=== PATIENT | male | born 2005 | race Caucasian/White ===

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

== ENCOUNTER 2023-12-13 22:01 | Emergency (ER) | payer OTHER, SELFPAY ==
[2023-12-13 22:02] VITALS: BP 145/77; PULSE 68; RESP 16; TEMP 37; O2SAT 99; BMI 19.5
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
[2023-12-13 22:44] VITALS: BP 132/77; PULSE 69; RESP 16; TEMP 36.6; O2SAT 100
== END 2023-12-13 23:07 | disposition home or self-care (01) ==
LOC: ED 22:54
PROVIDERS: Emergency Provider Emergency Medicine; Visit Provider Emergency Medicine
DX: Z04.1 Encounter for examination and observation following transport accident (principal); I10 Essential (primary) hypertension; Z79.899 Other long term (current) drug therapy
CPT/HCPCS: 99282

== ENCOUNTER 2025-01-06 19:36 | Emergency (ER) | payer OTHER, SELFPAY ==
[2025-01-06 19:37] VITALS: BP 150/88; PULSE 98; RESP 16; TEMP 36.6; O2SAT 99; BMI 18.6
--- OUTSIDE RECORDS SUMMARY | 2025-01-06 21:24 | XMS RPT_ITS | CCD ---
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 Tympanic membrane, ear canal and external ear normal. Left Ear: Ear canal and external ear normal. There is impacted cerumen. Ears: Comments: Left ear: Cerumen impairs exam of clinically significant portions of the tympanic membrane or middle ear condition. Nose: Nose normal. Mouth/Throat: Pharynx: Uvula midline. No oropharyngeal exudate or posterior oropharyngeal erythema. Cardiovascular: Rate and Rhythm: Normal rate and regular rhythm. Heart sounds: Normal heart sounds. Pulmonary: Effort: Pulmonary effort is normal. No respiratory distress. Breath sounds: Normal breath sounds. No wheezing or rales. Musculoskeletal: Cervical back: Neck supple. Lymphadenopathy: Cervical: No cervical adenopathy. Skin: General: Skin is warm and dry. Findings: No erythema or rash. Neurological: Mental Status: He is alert. ASSESSMENT/PLAN: 1. Impacted cerumen of left ear - ICD9: 380.4, ICD10: H61.22 (primary diagnosis) - REMOVAL OF IMPACTED CERUMEN - INSTRUMENTATION - Cerumen removed via irrigation, patient tolerated procedure well. Post procedure left ear canal is clear and TM is well visualized with bony landmarks intact and erythema and bulging TM. 2. Sore throat - ICD9: 462, ICD10: J02.9 - suspect viral - Group A strep molecular testing negative - Discussed supportive care treatment with fluids, rest and analgesia. 3. Other acute nonsuppurative otitis media of left ear, recurrence not specified - ICD9: 381.00, ICD10: H65.192 - Will begin treatment with as per antibiotic as written, see orders - Supportive care with plenty of fluids, rest, and analgesia prn. - CEFDINIR 300 MG CAPSULE - Follow-up with your PCP in 3-5 days if symptoms have not improved or sooner if symptoms worsen - Discussed red flags and need for immediate medical evaluation if any occur. - Discussed supportive care treatment with fluids, rest and analgesia. - Discussed expected course of illness JAYCOB Chow Kathy, APRN.CNP 03/14/2023 8:46 AM Adde (more content not included)... Normal [facility] CNOVon 10-02-2022 CNOV Office Visit ([facility] ) YOANNA CUETO ([id number]) 1 M Date Time Provider Department 10/02/22 5:30 PM CINDY VELAZQUEZ [facility] During your visit today, we recorded the following information about you: Temperature Pulse Respiration Blood pressure 98.7 degrees 76/minute 16/minute 130/68 Weight 60.8 kg Cindy Velazquez PA-C 10/02/2022 5:43 PM Signed Rotate ibuprofen 600-800mg every 6-8 hours and tylenol 500-1000mg every 4-6 hours (max 4000mg tylenol a day) Cepacol lozenges. Cindy Velazquez PA-C 10/02/2022 5:57 PM Signed This note was created using [employer]riter. Subjective Yoanna Cueto is a 16 year old male. HPI Patient presents with a chief complaint of sore throat and right ear pain. No fever. No cough or runny nose. Really just hurts on the right side of his throat. No diarrhea or vomiting. He has tried ibuprofen bkot-uey-jkfzfnp. Also tried cough drops. States some people at work have been sick. Review of Systems Constitutional: Negative. HENT: Positive for ear pain and sore throat. Negative for congestion, ear discharge, sinus pressure and sinus pain. Respiratory: Negative for cough. Cardiovascular: Negative. Gastrointestinal: Negative. Genitourinary: Negative. Musculoskeletal: Negative. All other systems reviewed and are negative. PAST MEDICAL HISTORY Diagnosis Date Contact dermatitis and other eczema, due to unspecified cause Current Outpatient Medications Medication Sig Dispense Refill albuterol HFA (PROAIR HFA) 90 mcg/actuation inhaler Inhale 2 Puffs as instructed every 6 hours as needed. 1 Each 0 cefdinir (OMNICEF) 300 mg capsule Take 1 capsule by mouth twice daily for 7 days. 14 capsule 0 Brompheniramine-Pseudoe ph-DM (BROMFED DM) 2-30-10 mg/5 mL syrup Take 10 mL by mouth four times daily as needed. (Patient not taking: Reported on 10/02/2022) 200 mL 0 albuterol HFA (VENTOLIN HFA) 90 mcg/actuation inhaler Inhale 2 Puffs as instructed every 4 hours as needed for Wheezing/Shortness of Breath. (Patient not taking: Reported on 08/11/2017 ) 1 Inhaler 0 cyproheptadine (PERIACTIN) 4 mg tablet (Patient not taking: Reported on 06/03/2021 ) epinephrine(EPIPEN JR 0.15 MG/0.3 ML (1:2,000) IM INJECTOR) use as directed for allergic reaction. Seek emergent medical care immediately after use. (Patient not taking: Reported on 06/03/2021) 1 1 Ped Jaibuhgxriqbz-Na-Qocv (POLY-VITAMIN/FLUORIDE/ IRON) 0.5-10 mg/mL ORAL Drop 1 ml once a day (Patient not taking: No sig reported) 30 ml 11 No current facility-administered medications for this visit. PAST SURGICAL HISTORY Procedure Laterality Date MYRINGOTOMY ASPIRAND/EUSTACHIAN TUBE NFLTJ ANES 03/2004 Myringotomy/tubes TONSILLECTOMY PRIMARY/SECONDARY Tonsillectomy FAMILY HISTORY Problem Relation Age of Onset Diabetes Mother Asthma Brother None Father None Brother Social History Tobacco Use Smoking status: Never Smokeless tobacco: Never Objective BP 130/68 Pulse 76 Temp 37.1 ?C (98.7 ?F) (Tympanic) Resp 16 Wt 60.8 kg (134 lb) SpO2 96% Physical Exam Vitals reviewed. Constitutional: Appearance: Normal appearance. HENT: Head: Normocephalic and atraumatic. Right Ear: Ear canal and external ear normal. Left Ear: Tympanic membrane, ear canal and external ear normal. Ears: Comments: Suppurative right middle ear effusion Nose: Nose normal. Mouth/Throat: Mouth: Mucous membranes are moist. Pharynx: Pharyngeal swelling and posterior oropharyngeal erythema present. No oropharyngeal exudate or uvula swelling. Comments: Tonsils surgically absent Cardiovascular: Rate and Rhythm: Normal rate and regular rhythm. Heart sounds: Normal heart sounds. Pulmonary: Effort: Pulmonary effort is normal. Breath sounds: Normal breath sounds. Musculoskeletal: Cervical back: Neck supple. Lymphadenopathy: Cervical: Cervical adenopathy present. Skin: General: Skin is warm and dry. Neurological: General: No focal deficit present. Mental Status: He is alert. Assessment and Plan ASSESSMENT/PLAN: 1. Sore throat - ICD9: 462, ICD10: J02.9 (primary diagnosis) - Alere Strep Test neg, no culture pending - Discussed supportive care treatment with fluids, rest and analgesia. - The patient may also use warm salt water gargles, throat lozenges and/or OTC throat spray as needed. - The patient should follow up in 3-5 days if symptoms persist or worsen - STREP A MOLECULAR (POC) 2. Acute otitis media, right - ICD9: 382.9, ICD10: H66.91 - Will begin treatment with as per antibiotic as written, see orders- omnicef - Supportive care with plenty of fluids, rest, and analgesia prn. - Follow up in 3-5 days if symptoms persist or worsen. Cindy Velazquez PA-C Allergies As of Date: 10/02/2022 Noted Allergy Reaction APRICOT 09/08/2008 AUGMENTIN (AMOXICILLIN-POT CLAVUL*04/02/2005 4 - Hives HONEY 09/28/2007 11 - Vomiting D (more content not included)... Normal [facility] STREP A MOLECULAR (POC)on Procedural Control Valid [facility] Strep A (POCT) Negative Negative [facility] Progress Noteon 06-27-2022 [employer] Authentication Interface Message Text Yoanna Cueto is here for follow-up for: Fluid In Kidney History of Presenting Problem: Patient is accompanied by and history obtained from parents. Hx of lap pyeloplasty, hypertension, and CKD. No more pain. Stent out. Creatinine down to 0.77 last visit. Renin normalized. OFF BP meds Past Medical History: Past Medical History: Diagnosis Date Hydronephrosis Past Surgical History: Procedure Laterality Date CIRCUMCISION CYSTOSCOPY N/A 11/20/2021 CYSTOSCOPY WITH STENT REMOVAL performed by Rodger Reyes MD at [facility] OR PYELOPLASTY Right 10/10/2021 LAPAROSCOPIC PYELOPLASTY performed by Rodger Reyes MD at [facility] OR TONSILLECTOMY URETER STENT PLACEMENT N/A 07/23/2021 RIGHT URETERAL STENT INSERTION performed by Rodger Reyes MD at [facility] OR Allergies: Allergies Allergen Reactions Apricot Flavor Swelling Augmentin [Amoxicillin-Pot Clavulanate] Hives Honey Nausea And Vomiting Honey Bee Treatment [Bee Venom] Nausea And Vomiting Honey only/not the bee venom Medications: Outpatient Encounter Medications as of 06/27/2022 Medication Sig Dispense Refill acetaminophen (TYLENOL) 325 MG tablet Take by mouth No facility-administered encounter medications on file as of 06/27/2022. Family Medical History: Family History Problem Relation Age of Onset Diabetes Mother High Cholesterol Mother Hypertension Father Allergies Brother seasonal allergies No known problems Brother [place] Before 50 Paternal Grandfather Social History: Social History Socioeconomic History Marital status: Single Spouse name: Not on file Number of children: Not on file Years of education: Not on file Highest education level: Not on file Occupational History Not on file Tobacco Use Smoking status: Never Passive exposure: Never Smokeless tobacco: Never Vaping Use Vaping status: Not on file Substance and Sexual Activity Alcohol use: Never Drug use: Never Sexual activity: Not on file Other Topics Concern Not on file Social History Narrative Not on file Additional History Is the patient on a special diet? No Age at toilet training? 1 yrs Per parents, immunizations are up to date. Yes Patient lives with? Parents Factors which may affect learning None Review of Systems: Pertinent items are noted in HPI. Physical Examination: Physical Exam There were no vitals filed for this visit. General: Well appearing, alert Eyes: Pupils equal, conjunctivae normal ENT: Ears normal, no nasal discharge Neck: Neck supple, trachea normal Resp: Normal effort, no chest wall deformity Abdomen: Non-tender, no masses Musculoskeletal: No deformity, no edema Neurologic: Normal sensation, normal strength Skin: Warm and dry to palpation, no rash : incisions well healed Laboratory Testing: No results found for this visit on 06/27/22. Imaging: Renal/Bladder Ultrasound Bladder Post Void Residual: None Hydroureter: No Bladder Debris: No Transverse Rectal Diameter: Other Findings: Normal Central Pelvis: Yes Kidneys Right Kidney Left Kidney Length: 10.9 Length: 11.1 Parenchyma: Normal Parenchyma: Normal Grade of HydronephrosisNone Grade of HydronephrosisNone AP diameter of pelvis AP diameter of pelvis Assessment & Plan: Yoanna was seen today for fluid in kidney. 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 Call with pain other concerns. FU as needed Rodger Reyes MD June 27, 2022 Normal [facility] Influenza virus A and B and SARS-CoV-2 (COVID-19) Ag panel - Upper respiratory specimOrdered By: Jasper Gupta on 06-12-2022 SARS-CoV-2 & FLU Antigen (Rapid) SARS-CoV-2 (COVID 19) [facility] Influenza virus A and B and SARS-CoV-2 (COVID-19) Ag panel - Upper respiratory specimOrdered By: Dr. Gupta on 06-12-2022 SARS-CoV-2 & FLU Antigen (Rapid) SARS-CoV-2 (COVID 19) [facility] CNOVon 05-20-2022 CNOV Office Visit ([facility] ) YOANNA CUETO ([id number]) 1 M Date Time Provider Department 05/20/22 5:45 PM CINDY VELAZQUEZ [facility] During your visit today, we recorded the following information about you: Temperature Pulse Respiration Blood pressure 97.9 degrees 60/minute 16/minute 122/78 Weight 56.3 kg Cindy Velazquez PA-C 05/20/2022 6:25 PM Signed This note was created using [employer]. Subjective Yoanna Cueto is a 16 year old male. HPI Patient presents with cough over the past 3 weeks. He has had some runny nose and congestion. No sinus pain or pressure he did try some TheraFlu mpzl-fce-aetaolf. No chest pain or shortness of breath. He states the cough does keep him up at night. He did do 2 home COVID test which were negative. No diarrhea or vomiting. No history of asthma. He is not a smoker. Review of Systems Constitutional: Negative for fever. HENT: Positive for congestion and rhinorrhea. Negative for sinus pressure and sinus pain. Respiratory: Positive for cough. Negative for shortness of breath and wheezing. Cardiovascular: Negative. Gastrointestinal: Negative. Genitourinary: Negative. Musculoskeletal: Negative. All other systems reviewed and are negative. PAST MEDICAL HISTORY Diagnosis Date Contact dermatitis and other eczema, due to unspecified cause Current Outpatient Medications Medication Sig Dispense Refill predniSONE (DELTASONE) 20 mg tablet Take 2 tablets by mouth once daily for 5 days. 10 tablet 0 Brompheniramine-Pseudoe ph-DM (BROMFED DM) 2-30-10 mg/5 mL syrup Take 10 mL by mouth four times daily as needed. 200 mL 0 albuterol HFA (PROAIR HFA) 90 mcg/actuation inhaler Inhale 2 Puffs as instructed every 6 hours as needed. 1 Each 0 albuterol HFA (VENTOLIN HFA) 90 mcg/actuation inhaler Inhale 2 Puffs as instructed every 4 hours as needed for Wheezing/Shortness of Breath. (Patient not taking: Reported on 08/11/2017 ) 1 Inhaler 0 cyproheptadine (PERIACTIN) 4 mg tablet (Patient not taking: Reported on 06/03/2021 ) epinephrine(EPIPEN JR 0.15 MG/0.3 ML (1:2,000) IM INJECTOR) use as directed for allergic reaction. Seek emergent medical care immediately after use. (Patient not taking: Reported on 06/03/2021) 1 1 Ped Ajtmiwkayfwfn-Hx-Urfb (POLY-VITAMIN/FLUORIDE/ IRON) 0.5-10 mg/mL ORAL Drop 1 ml once a day (Patient not taking: No sig reported) 30 ml 11 No current facility-administered medications for this visit. PAST SURGICAL HISTORY Procedure Laterality Date MYRINGOTOMY ASPIRAND/EUSTACHIAN TUBE NFLTJ ANES 03/2004 Myringotomy/tubes TONSILLECTOMY PRIMARY/SECONDARY Tonsillectomy FAMILY HISTORY Problem Relation Age of Onset Diabetes Mother Asthma Brother None Father None Brother Social History Tobacco Use Smoking status: Never Smokeless tobacco: Never Objective BP 122/78 Pulse 60 Temp 36.6 ?C (97.9 ?F) (Tympanic) Resp 16 Wt 56.3 kg (124 lb 3.2 oz) SpO2 98% Physical Exam Vitals reviewed. Constitutional: Appearance: Normal appearance. HENT: Head: Normocephalic and atraumatic. Right Ear: Tympanic membrane, ear canal and external ear normal. Left Ear: Tympanic membrane, ear canal and external ear normal. Nose: Congestion present. Mouth/Throat: Mouth: Mucous membranes are moist. Pharynx: Oropharynx is clear. Cardiovascular: Rate and Rhythm: Normal rate and regular rhythm. Heart sounds: Normal heart sounds. Pulmonary: Effort: Pulmonary effort is normal. Breath sounds: Normal breath sounds. Comments: Harsh cough noted Musculoskeletal: Cervical back: Neck supple. Lymphadenopathy: Cervical: No cervical adenopathy. Skin: General: Skin is warm and dry. Neurological: Mental Status: He is alert. Assessment and Plan ASSESSMENT/PLAN: 1. Bronchitis - ICD9: 490, ICD10: J40 Chest x-ray clear. I feel he does have a viral bronchitis. Given Bromfed and prednisone as well as albuterol inhaler. Follow-up with PCP if not improving. - XR CHEST 2V FRONTAL/LAT Cindy Velazquez PA-C Referring Provider: SELF [[id number]] Allergies As of Date: 05/20/2022 Noted Allergy Reaction APRICOT 09/08/2008 AUGMENTIN (AMOXICILLIN-POT CLAVUL*04/02/2005 4 - Hives HONEY 09/28/2007 11 - Vomiting Date Reviewed: 05/20/2022 Reviewed by: Brooklynn Gray LPN - Fully Assessed Reason for Visit: Cough [28] Cmt: Cough and congestion x 3 weeks Primary Visit Diagnosis:Bronchitis [J40] Order(s):XR CHEST 2V FRONTAL/LAT [[id number]] Order #: [id number] FUTURE predniSONE (DELTASONE) 20 mg tabletTake 2 tablets by mouth once daily for 5 days.Disp: 10 tabletRfl: 0 Brompheniramine-Pseudoe ph-DM (BROMFED DM) 2-30-10 mg/5 mL syrupTake 10 mL by mouth four times daily as needed.Disp: 200 mLRfl: 0 albuterol HFA (PROAIR HFA) 90 mcg/actuation inhalerInhale 2 Puffs as instructed every 6 hours as needed.Disp: 1 EachRfl: 0 Prescriptions as of 05/20/2022 - predniSONE (DEL (more content not included)... Normal [facility] XR CHEST 2V FRONTAL/LATon XR CHEST 2V FRONTAL/LAT * * *Final Report* * * DATE OF EXAM: May 20 2022 6:16PM WOX [id number] - XR CHEST 2V FRONTAL/LAT / PROCEDURE REASON: Bronchitis * * * * Physician Interpretation * * * * EXAMINATION: CHEST RADIOGRAPH (2 VIEW FRONTAL and LATERAL) CLINICAL HISTORY: Bronchitis MQ: XC2_6 EXAM DATE/TIME: 05/20/2022 6:16 PM COMPARISON: No relevant prior studies available. RESULT: Lines, tubes, and devices: None. Lungs and pleura: No consolidation. No pleural effusion. No pneumothorax. Cardiomediastinal silhouette: Normal cardiomediastinal silhouette. Bones and soft tissues: Unremarkable. IMPRESSION: Normal 2 views of the chest. Boat Garnisher: SETiT Transcribe Date/Time: May 20 2022 6:18P Dictated by : RADHA GUZMAN MD This examination was interpreted and the report reviewed and electronically signed by: RADHA GUZMAN MD on May 20 2022 6:19PM EST [id number] Normal [facility] XR Chest PA and Lateralon IMPRESSION: Normal 2 views of the chest. Boat Garnisher: SETiT Transcribe Date/Time: May 20 2022 6:18P Dictated by : RADHA GUZMAN MD This examination was interpreted and the report reviewed and electronically signed by: RADHA GUZMAN MD on May 20 2022 6:19PM EST DIVISION OF RADIOLOGY * * *Final Report* * * DATE OF EXAM: May 20 2022 6:16PM WOX [id number] - XR CHEST 2V FRONTAL/LAT / PROCEDURE REASON: Bronchitis * * * * Physician Interpretation * * * * EXAMINATION: CHEST RADIOGRAPH (2 VIEW FRONTAL & LATERAL) CLINICAL HISTORY: Bronchitis MQ: XC2_6 EXAM DATE/TIME: 05/20/2022 6:16 PM COMPARISON: No relevant prior studies available. RESULT: Lines, tubes, and devices: None. Lungs and pleura: No consolidation. No pleural effusion. No pneumothorax. Cardiomediastinal silhouette: Normal cardiomediastinal silhouette. Bones and soft tissues: Unremarkable. DIVISION OF RADIOLOGY [facility] * * *Final Report* * * DATE OF EXAM: May 20 2022 6:16PM WOX 5291 - XR CHEST 2V FRONTAL/LAT / PROCEDURE REASON: Bronchitis * * * * Physician Interpretation * * * * EXAMINATION: CHEST RADIOGRAPH (2 VIEW FRONTAL & LATERAL) CLINICAL HISTORY: Bronchitis MQ: XC2_6 EXAM DATE/TIME: 05/20/2022 6:16 PM COMPARISON: No relevant prior studies available. RESULT: Lines, tubes, and devices: None. Lungs and pleura: No consolidation. No pleural effusion. No pneumothorax. Cardiomediastinal silhouette: Normal cardiomediastinal silhouette. Bones and soft tissues: Unremarkable. IMPRESSION IMPRESSION: Normal 2 views of the chest. Boat Garnisher: PSCB Transcribe Date/Time: May 20 2022 6:18P Dictated by : RADHA GUZMAN MD This examination was interpreted and the report reviewed and electronically signed by: RADHA GUZMAN MD on May 20 2022 6:19PM EST [facility] Radiology Study observation (narrative) [facility] XR Chest PA and LateralOrder ed By: Ccf Provider on 05-20-2022 [facility] CNOVon 03-19-2022 CNOV Office Visit ([facility] ) YOANNA CUETO ([id number]) 1 M Date Time Provider Department 03/19/22 8:00 AM CAS DHALIWAL [facility] During your visit today, we recorded the following information about you: Temperature Pulse Respiration Blood pressure 99.3 degrees 96/minute 16/minute 138/82 Weight 55.2 kg Cas Dhaliwal APRN.CNP 03/19/2022 9:08 AM Signed Subjective HPI HPI Yoanna Carvajal Rom is a 16 year old male who presents today for CC of cough, fever, congestion, h/a, body aches. This started 2-3 days ago. Has tried otc medication for relief. Symptoms are worsened by nothing. Risk factors sick exposures at home and work. nonsmoker. .Patient presents with: Cough: Cough, congestion, DORADO and runny nose x 2 days PAST MEDICAL HISTORY Diagnosis Date Contact dermatitis and other eczema, due to unspecified cause PAST SURGICAL HISTORY Procedure Laterality Date MYRINGOTOMY ASPIRAND/EUSTACHIAN TUBE NFLTJ ANES 03/2004 Myringotomy/tubes TONSILLECTOMY PRIMARY/SECONDARY Tonsillectomy ALLERGIES Apricot, Augmentin [Amoxicillin-Pot Clavulanate], and Honey MEDICATIONS albuterol HFA (VENTOLIN HFA) 90 mcg/actuation inhaler Inhale 2 Puffs as instructed every 4 hours as needed for Wheezing/Shortness of Breath. (Patient not taking: Reported on 08/11/2017 ) cyproheptadine (PERIACTIN) 4 mg tablet (Patient not taking: Reported on 06/03/2021 ) epinephrine(EPIPEN JR 0.15 MG/0.3 ML (1:2,000) IM INJECTOR) use as directed for allergic reaction. Seek emergent medical care immediately after use. (Patient not taking: Reported on 06/03/2021) Ped Cmhrfmnuucgea-Gu-Fsxi (POLY-VITAMIN/FLUORIDE/ IRON) 0.5-10 mg/mL ORAL Drop 1 ml once a day (Patient not taking: No sig reported) FAMILY HISTORY Problem Relation Age of Onset Diabetes Mother Asthma Brother None Father None Brother Social History Tobacco Use Smoking status: Never Smokeless tobacco: Never Review of Systems Constitutional: Positive for chills, fever and malaise/fatigue. HENT: Positive for congestion. Negative for ear pain, nosebleeds and sore throat. Respiratory: Positive for cough. Negative for shortness of breath and wheezing. Cardiovascular: Negative for chest pain. Musculoskeletal: Negative for neck pain. Skin: Negative for itching and rash. Objective Blood pressure 138/82, pulse 96, temperature 37.4 ?C (99.3 ?F), temperature source Tympanic, resp. rate 16, weight 55.2 kg (121 lb 12.8 oz), SpO2 98 %. Physical Exam Constitutional: General: He is not in acute distress. Appearance: He is not toxic-appearing or diaphoretic. HENT: Head: Normocephalic and atraumatic. Cardiovascular: Rate and Rhythm: Normal rate and regular rhythm. Heart sounds: Normal heart sounds, S1 normal and S2 normal. Pulmonary: Effort: Pulmonary effort is normal. Breath sounds: Normal breath sounds. Lymphadenopathy: Cervical: No cervical adenopathy. Right cervical: No superficial cervical adenopathy. Left cervical: No superficial cervical adenopathy. Neurological: Mental Status: He is alert and oriented to person, place, and time. Gait: Gait is intact. ASSESSMENT/PLAN: 1. Influenza-like illness - ICD9: 487.1, ICD10: J11.1 -discussed expected course -discussed supportive care -discussed red flags and reasons for f/u -discussed contagiousness, reason/when close family members should f/u, and whom to avoid -f/u in 3-5 days if symptoms worsening - COVID WITH FLUA+B, ROUTINE JAYCOB Hammer APRN.CNP 03/19/2022 8:48 AM Signed Allergies As of Date: 03/19/2022 Noted Allergy Reaction APRICOT 09/08/2008 AUGMENTIN (AMOXICILLIN-POT CLAVUL*04/02/2005 4 - Hives HONEY 09/28/2007 11 - Vomiting Date Reviewed: 03/19/2022 Reviewed by: Cas Dhaliwal APRN.CNP - Fully Assessed Reason for Visit: Cough [28] Cmt: Cough, congestion, DORADO and runny nose x 2 days Primary Visit Diagnosis:Influenza-lik e illness [J11.1] Order(s):COVID WITH FLUA+B, ROUTINE [SQCOVFLU] Order #: [id number]. #:[id number] Prescriptions as of 03/19/2022 - albuterol HFA (VENTOLIN HFA) 90 mcg/actuation inhaler Inhale 2 Puffs as instructed every 4 hours as needed for Wheezing/Shortness of Breath. - cyproheptadine (PERIACTIN) 4 mg tablet - epinephrine(EPIPEN JR 0.15 MG/0.3 ML (1:2,000) IM INJECTOR) use as directed for allergic reaction. Seek emergent medical care immediately after use. - Ped Itgevwpnbxkgj-Pd-Jwtd (POLY-VITAMIN/FLUORIDE/ IRON) 0.5-10 mg/mL ORAL Drop 1 ml once a day Problem List As Of Date 03/19/2022 Noted Resolved Unspecified Ganglion [M67.40] 08/18/2007 Routine or Child Health Check [Z00.129] 09/08/2008 Class: Chronic Eczema [L30.9] 05/02/2009 Distal radius fracture, left [S52.502A] 06/28/2012 Other instructions from your clinician: Letter Text Encounter Status:Closed by TRINY DHALIWAL (more content not included)... Normal [facility] Influenza virus A and B RNA and SARS-CoV-2 (COVID-19) N gene panel CHUCK+probe (Resp)on 03-19-2022 FLUAV RNA CHUCK+probe Ql (Unsp spec) Negative Negative for Influenza A by RT-PCR [facility] FLUBV RNA CHUCK+probe Ql (Unsp spec) Negative Negative for Influenza B by RT-PCR [facility] SARS-CoV-2 (COVID-19) RNA CHUCK+probe Ql (Resp) SARS-CoV-2 (Agent of COVID-19) Not Detected by RT-PCR or equivalent method. Not Detected [facility] Plasma Renin Activityon 12-21 Plasma Renin Activity 2.2 ng/mL/h Normal [facility] Comment on above: Order Comment: Relea se to patient->Automatic [id number]&Blood Result Comment: REFERENCE VALUE (Peripheral vein specimen) Na-deplete, upright: Mean: 10.8 Range: 2.9-24 Na-replete, upright: Mean: 1.9 Range: < or =0.6-4.3 ADDITIONAL INFORMATION Testing performed by Liquid Chromatography-Tandem Mass Spectrometry (LC-MS/MS). This test was developed and its performance characteristics determined by [facility] in a manner consistent with CLIA requirements. This test has not been cleared or approved by the U.S. Food and Drug Administration. Test Performed by: [facility] - [address] [address] Computer Numerical Control Machinist: Marlon Jorgensen M.D. Ph.D.; CLIA# [id number] Performed By: #### C YSTC #### [address] [address] Cystatin Con 01-02-2022 Cystatin C 0.83 mg/L Normal 0.63 - 1.03 [facility] Comment on above: Order Comment: Relea se to patient->Automatic [id number]&Blood Result Comment: Test Performed by: [place] [address] Computer Numerical Control Machinist: Marlon Jorgensen M.D. Ph.D.; CLIA# [id number] Performed By: #### R ENAL #### [address] [id number] Est GFR by Cystatin C 118 mL/min/BSA Normal >60 [facility] Comment on above: Order Comment: Relea se to patient->Automatic [id number]&Blood Result Comment: Mairah mated GFR calculated using the CKD-EPI Cystatin C (2012) equation. ADDITIONAL INFORMATION Cystatin C-based eGFR may differ substantially from creatinine- based eGFR in patients with abnormal muscle mass or acutely changing renal function. Please interpret together with relevant clinical features. On 08/16/2020 the cystatin C assay method changed. Cystatin C eGFR results > 50 ml/min/1.73m2 are approximately 10% lower with the new assay. Performed By: #### R ENAL #### [address] [address] Renal Panelon 01-01-2022 Albumin [Mass/Vol] 5.2 g/dL High 3.5-5.0 [facility] Comment on above: Order Comment: Relea se to patient->Automatic [id number]&Blood Performed By: #### R ENAL #### [address] [id number] Calcium [Mass/Vol] 9.8 mg/dL Normal 7.6-11.0 [facility] Comment on above: Order Comment: Relea se to patient->Automatic 75781&Blood Performed By: #### R ENAL #### [address] [address] CO2 [Moles/Vol] 26.1 mmol/L Normal 22.0-29.0 [facility] Comment on above: Order Comment: Relea se to patient->Automatic [id number]&Blood Performed By: #### R ENAL #### [place] [address] Creatinine [Mass/Vol] 0.77 mg/dL Normal 0.70-1.20 [facility] Comment on above: Order Comment: Relea se to patient->Automatic 65029&Blood Performed By: #### R ENAL #### [place] [address] Glucose [Mass/Vol] 97 mg/dL Normal 70-99 [facility] Comment on above: Order Comment: Relea se to patient->Automatic [id number]&Blood Result Comment: Crit eria for Diagnosis of Diabetes: Fasting Specimen (no caloric intake for at least 8 hours): <100 mg/dL Normal 100-125 mg/dL Increased risk for Diabetes >125 mg/dL Diagnostic for Diabetes Random Glucose (any time of day without regard to last meal): > or = 200 mg/dL plus Classic Symptoms of Diabetes Performed By: #### R ENAL #### [address] [address] Phosphate [Mass/Vol] 3.7 mg/dL Normal 2.7-4.5 [place] Comment on above: Order Comment: Relea se to patient->Automatic 51291&Blood Performed By: #### R ENAL #### [address] [address] Urea nitrogen [Mass/Vol] 14 mg/dL Normal 4-19 [facility] Comment on above: Order Comment: Relea se to patient->Automatic 93969&Blood Performed By: #### R ENAL #### [facility] [address] [place] [address] Chloride [Moles/Vol] 101 mmol/L Normal 96-108 [place] Comment on above: Order Comment: Relea se to patient->Automatic 66063&Blood Performed By: #### R ENAL #### [facility] [address] [place] [address] Potassium [Moles/Vol] 3.8 mmol/L Normal 3.3-5.1 [facility] Comment on above: Order Comment: Relea se to patient->Automatic 76848&Blood Performed By: #### R ENAL #### [facility] [address] [place] [address] Sodium [Moles/Vol] 138 mmol/L Normal 133-145 [facility] Comment on above: Order Comment: Relea se to patient->Automatic [id number]&Blood Performed By: #### R ENAL #### [address] [address] Progress Noteon 12-27-2021 [employer] Sergeant Authentication Interface Message Text José Migueljagruti Cabrera Rom is here for follow-up for: Follow Up History of Presenting Problem: Patient is accompanied by and history obtained from mom and dad. Hx of lap pyeloplasty, hypertension, and CKD. No more pain. Stent out. GFR was 82 in September. Renin normalized. OFF BP meds Past Medical History: Past Medical History: Diagnosis Date Hydronephrosis Past Surgical History: Procedure Laterality Date CIRCUMCISION CYSTOSCOPY N/A 11/20/2021 CYSTOSCOPY WITH STENT REMOVAL performed by Rodger Reyes MD at [facility] OR PYELOPLASTY Right 10/10/2021 LAPAROSCOPIC PYELOPLASTY performed by Rodger Reyes MD at [facility] OR TONSILLECTOMY URETER STENT PLACEMENT N/A 07/23/2021 RIGHT URETERAL STENT INSERTION performed by Rodger Reyes MD at [facility] OR Allergies: Allergies Allergen Reactions Apricot Flavor Swelling Augmentin [Amoxicillin-Pot Clavulanate] Hives Honey Nausea And Vomiting Honey Bee Treatment [Bee Venom] Nausea And Vomiting Honey only/not the bee venom Medications: Outpatient Encounter Medications as of 12/27/2021 Medication Sig Dispense Refill acetaminophen (TYLENOL) 325 MG tablet Take by mouth No facility-administered encounter medications on file as of 12/27/2021. Family Medical History: Family History Problem Relation Age of Onset Diabetes Mother High Cholesterol Mother Hypertension Father Allergies Brother seasonal allergies No known problems Brother [place] Before 50 Paternal Grandfather Social History: Social History Socioeconomic History Marital status: Single Spouse name: Not on file Number of children: Not on file Years of education: Not on file Highest education level: Not on file Occupational History Not on file Tobacco Use Smoking status: Never Passive exposure: Never Smokeless tobacco: Never Substance and Sexual Activity Alcohol use: Never Drug use: Never Sexual activity: Not on file Other Topics Concern Not on file Social History Narrative Not on file Additional History Is the patient on a special diet? No Age at toilet training? 1 yrs Per parents, immunizations are up to date. Yes Patient lives with? Parents Factors which may affect learning None Review of Systems: Pertinent items are noted in HPI. Physical Examination: Physical Exam Vitals: 12/27/21 1002 BP: 135/61 Pulse: 81 Temp: 36.9 C (98.4 F) Weight: 52.4 kg Height: 173 cm General: Well appearing, alert Eyes: Pupils equal, conjunctivae normal ENT: Ears normal, no nasal discharge Neck: Neck supple, trachea normal Resp: Normal effort, no chest wall deformity Abdomen: Non-tender, no masses Musculoskeletal: No deformity, no edema Neurologic: Normal sensation, normal strength Skin: Warm and dry to palpation, no rash : bladder non distended Laboratory Testing: No results found for this visit on 12/27/21. Imaging: Renal/Bladder Ultrasound Bladder Post Void Residual: None Hydroureter: No Bladder Debris: No Transverse Rectal Diameter: Other Findings: Normal Central Pelvis: No Kidneys Right Kidney Left Kidney Length: 102. Length: 10.9 Parenchyma: Normal Parenchyma: Normal Grade of HydronephrosisNone Grade of HydronephrosisNone AP diameter of pelvis AP diameter of pelvis Assessment & Plan: Yoanna was seen today for follow up. Diagnoses and all orders for this visit: Flank pain Hydronephrosis with ureteropelvic junction (UPJ) obstruction - Kidney/Bladder Ultrasound Elevated blood pressure reading without diagnosis of hypertension - Kidney/Bladder Ultrasound Congenital obstruction of ureteropelvic junction - Kidney/Bladder Ultrasound - Renal Function Panel; Future - Cystatin C; Future - Plasma Renin Activity; Future Reassured kidney looks great. RTO in 6 months. Call with pain. Repeat labs. If GFR still low, see nephrology Rodger Reyes MD December 27, 2021 Normal [facility] Urine Cultureon 11-20-2021 Bacteria identified Cx Nom (U) Release to patient->Automatic [id number]&Urine^^^Urine&Uri ne Urine Culture: No growth. Source: URNCS Collected: 11/20/21 12:41 Site: Received : 11/20/21 13:55 Urine Culture FINAL 11/22/21 10:08 No growth. Normal [facility] Comment on above: Performed By: #### C YSTC #### [place] [address] Progress Noteon 11-19-2021 [employer] Sergeant Authentication Interface Message Text Yoanna Cueto is here for follow up at the request of Katelyn Montague MD for: Fluid In Kidney History of Presenting Problem: History provided by mom and Yoanna Had right UPJ obstruction. Status post pyeloplasty. Having stent out tomorrow. Voiding well. As long as he stays hydrated, does not have dysuria. No hematuria. Stent is uncomfortable. No flank pain or abdominal pain. Here for ultrasound. Past Medical History: Past Medical History: Diagnosis Date Hydronephrosis Past Surgical History: Procedure Laterality Date CIRCUMCISION PYELOPLASTY Right 10/10/2021 LAPAROSCOPIC PYELOPLASTY performed by Rodger Reyes MD at [facility] OR TONSILLECTOMY URETER STENT PLACEMENT N/A 07/23/2021 RIGHT URETERAL STENT INSERTION performed by Rodger Reyes MD at [facility] OR Allergies: Allergies Allergen Reactions Amoxicillin Hives Apricot Flavor Swelling Augmentin [Amoxicillin-Pot Clavulanate] Hives Clavulanic Acid Hives Honey Nausea And Vomiting Honey Bee Treatment [Bee Venom] Nausea And Vomiting Honey only/not the bee venom Medications: No outpatient encounter medications on file as of 11/19/2021. No facility-administered encounter medications on file as of 11/19/2021. Family Medical History: Family History Problem Relation Age of Onset Diabetes Mother High Cholesterol Mother Hypertension Father Allergies Brother seasonal allergies No known problems Brother [place] Before 50 Paternal Grandfather Social History: Social History Socioeconomic History Marital status: Single Spouse name: Not on file Number of children: Not on file Years of education: Not on file Highest education level: Not on file Occupational History Not on file Tobacco Use Smoking status: Never Passive exposure: Never Smokeless tobacco: Never Substance and Sexual Activity Alcohol use: Not on file Drug use: Not on file Sexual activity: Not on file Other Topics Concern Not on file Social History Narrative Not on file Additional History Is the patient on a special diet? No Age at toilet training? 1 yrs Per parents, immunizations are up to date. Yes Patient lives with? Parents Factors which may affect learning None Review of Systems: Constitutional: negative Eyes: negative Ears, nose, mouth, throat, and face: negative Respiratory: negative Cardiovascular: negative Gastrointestinal: negative Integument/breast: negative Hematologic/lymphatic: negative Musculoskeletal:negativ e Allergic/Immunologic: negative No fever or cough today. Physical Examination: Vitals: 11/19/21 1040 Weight: 52.4 kg Height: 172.7 cm General: Well appearing Eyes: Conjunctivae normal ENT: Ears normal, Resp: Normal effort, no wheezing Heart: no cyanosis Lymphatic: No obvious lymphadenopathy Abdomen: Non-tender, no masses Musculoskeletal: Normocephalic head, anticipated range of motion Neurologic: grossly expected sensation and strength Skin: good color, warm and dry : bladder soft Laboratory Testing: No results found for this visit on 11/19/21. Results for orders placed or performed during the hospital encounter of 10/10/21 Surgical Pathology Lab Test Result Value Ref Range Surgical Pathology Test SEE BELOW NA Basic Metabolic Panel Result Value Ref Range Sodium 141 133 - 145 mmol/L Potassium 4.1 3.3 - 5.1 mmol/L Chloride 104 96 - 108 mmol/L Carbon Dioxide 27.2 22.0 - 29.0 mmol/L BUN 12 4 - 19 mg/dL Glucose 83 70 - 99 mg/dL Creatinine 0.87 0.70 - 1.20 mg/dL Calcium 9.1 7.6 - 11.0 mg/dL Plasma Renin Activity Result Value Ref Range Renin Activity, Plasma 0.8 ng/mL/h eGFR Result Value Ref Range eGFR 81.98 NA Lab Results Component Value Date CREATININE 0.87 10/11/2021 BUN 12 10/11/2021 NA 141 10/11/2021 K 4.1 10/11/2021 CL 104 10/11/2021 CO2 27.2 10/11/2021 Imaging: Renal/Bladder Ultrasound Bladder Post Void Residual: n/a cc Hydroureter: No Bladder Debris: No Transverse Rectal Diameter: Other Findings: stent in bladder Normal Central Pelvis: Yes Kidneys Right Kidney Left Kidney Length: 10.7 Length: 10.7 Parenchyma: Normal Parenchyma: Normal Grade of HydronephrosisNone Grade of HydronephrosisNone AP diameter of pelvis AP diameter of pelvis Assessment & Plan: Yoanna was seen today for fluid in kidney. Diagnoses and all orders for this visit: Hydronephrosis with ureteropelvic junction (UPJ) obstruction - Kidney/Bladder Ultrasound Scheduled for surgery for stent removal tomorrow Follow up one month after stent removal Kasey Hu, [employer] November 19, 2021 Normal [facility] Plasma Renin Activityon 09-21 Plasma Renin Activity 0.8 ng/mL/h Normal [facility] Comment on above: Order Comment: Relea se to patient->Automatic [id number]&Blood Result Comment: REFERENCE VALUE Mean: 1.8 Range: 1.2-2.4 Mean data not standardized as to time of day or diet. Infants were supine, children sitting. ADDITIONAL INFORMATION Testing performed by Liquid Chromatography-Tandem Mass Spectrometry (LC-MS/MS). This test was developed and its performance characteristics determined by [facility] in a manner consistent with CLIA requirements. This test has not been cleared or approved by the U.S. Food and Drug Administration. Test Performed by: [facility] - [address] [address] Computer Numerical Control Machinist: Marlon Jorgensen M.D. Ph.D.; CLIA# [id number] Performed By: #### R ENAL #### [place] [address] Basic Metabolic Panelon 09-21 Calcium [Mass/Vol] 9.1 mg/dL Normal 7.6-11.0 [facility] Comment on above: Order Comment: Relea se to patient->Automatic [id number]&Blood Performed By: #### R ENAL #### [place] [address] CO2 [Moles/Vol] 27.2 mmol/L Normal 22.0-29.0 [facility] Comment on above: Order Comment: Relea se to patient->Automatic [id number]&Blood Performed By: #### R ENAL #### [place] [address] Creatinine [Mass/Vol] 0.87 mg/dL Normal 0.70-1.20 [facility] Comment on above: Order Comment: Relea se to patient->Automatic [id number]&Blood Performed By: #### R ENAL #### [place] [address] Glucose [Mass/Vol] 83 mg/dL Normal 70-99 [facility] Comment on above: Order Comment: Relea se to patient->Automatic 31267&Blood Result Comment: Crit keshav for Diagnosis of Diabetes: Fasting Specimen (no caloric intake for at least 8 hours): <100 mg/dL Normal 100-125 mg/dL Increased risk for Diabetes >125 mg/dL Diagnostic for Diabetes Random Glucose (any time of day without regard to last meal): > or = 200 mg/dL plus Classic Symptoms of Diabetes Performed By: #### R ENAL #### [place] [address] Urea nitrogen [Mass/Vol] 12 mg/dL Normal 4-19 [facility] Comment on above: Order Comment: Relea se to patient->Automatic 72403&Blood Performed By: #### R ENAL #### [address] [address] Chloride [Moles/Vol] 104 mmol/L Normal 96-108 [place] Comment on above: Order Comment: Relea se to patient->Automatic [id number]&Blood Performed By: #### R ENAL #### [address] [address] Potassium [Moles/Vol] 4.1 mmol/L Normal 3.3-5.1 [facility] Comment on above: Order Comment: Relea se to patient->Automatic 23226&Blood Performed By: #### R ENAL #### [address] [address] Sodium [Moles/Vol] 141 mmol/L Normal 133-145 [facility] Comment on above: Order Comment: Relea se to patient->Automatic 83076&Blood Performed By: #### R ENAL #### [address] [address] Calcium [Mass/Vol] 9.1 mg/dL 7.6 - 11 mg/dL [facility] Chloride [Moles/Vol] 104 mmol/L 96 - 10 8 mmol/L [facility] CO2 [Moles/Vol] 27.2 mmol/L 22 - 29 mmol/L [facility] Creatinine [Mass/Vol] 0.87 mg/dL 0.7 - 1.2 mg/dL [facility] Glucose [Mass/Vol] 83 mg/dL 70 - 99 mg/dL [facility] Comment on above: Criteria for Diagnos is of Diabetes: Fasting Specimen (no caloric intake for at least 8 hours): <100 mg/dL Normal 100-125 mg/dL Increased risk for Diabetes >125 mg/dL Diagnostic for Diabetes Random Glucose (any time of day without regard to last meal): > or = 200 mg/dL plus Classic Symptoms of Diabetes Potassium [Moles/Vol] 4.1 mmol/L 3.3 - 5.1 mmol/L [facility] Sodium [Moles/Vol] 141 mmol/L 133 - 145 mmol/L [facility] Urea nitrogen [Mass/Vol] 12 mg/dL 4 - 19 mg/dL [facility] No Panel Informationon 10-11 Release to patient->Automatic [facility] eGFRon 10-11-2021 eGFR 81.98 Normal [facility] Comment on above: Order Comment: Relea se to patient->Automatic [id number]&Blood Result Comment: Refe rence range: > 3 months: >90 ml/min/1.73m^2 Ref. Range change effective 06/15/2017 Performed By: #### R ENAL #### [place] [address] GFR/1.73 sq M.predicted among non-blacks MDRD (S/P/Bld) [Vol rate/Area] 81.98 mL/min/{1.73_m2} [facility] Comment on above: Reference range: > 3 months: >90 ml/min/1.73m^2 Ref. Range change effective 06/15/2017 Surgical Pathology Teston Surgical Pathology Test SEE BELOW Normal [facility] Comment on above: Result Comment: SANDRA Souza DIAGNOSIS: Tissue, right ureteropelvic junction, excision: -Focally acutely inflamed urothelium with chronic inflammation in the submucosa. SPECIMEN: TISSUE- RIGHT URETEROPELVIC JUNCTION OBSTRUCTION DATE OF SURGERY: 10/10/2021 CLINICAL INFORMATION: Hydronephrosis with UPJ obstruction. GROSS DESCRIPTION: Received in formalin labeled the patient's name and right ureteropelvic obstruction are two fragments of andrade-white ureter, aggregating to 1.5 cm length by 0.2-0.5 cm in overall diameter. The outer surfaces are andrade-white and glistening. Sectioning reveals a pinpoint lumen. They are entirely submitted in cassette A1. MICROSCOPIC EXAMINATION: Urothelium with focal acute inflammation. The submucosa and muscular layers show a moderate lymphoplasmacytic infiltrate. No masses or lesions are seen. STAINS AND PROCEDURES: Stains performed have adequate controls. Testing using analyte specific reagents was developed and its performance characteristics determined by the department of Pathology of [facility]. It has not been specifically cleared or approved by the U.[place]. FDA. The FDA has determined such clearance or approval is not necessary. LUCHO LADD D.O. 10/17/2021 Performed By: #### C YSTC #### [facility] [address] [place] [address] SARS-CoV-2 (COVID-19) RT-PCR on 10-08-2021 SARS-CoV-2 (COVID-19) RNA CHUCK+probe Ql (Unsp spec) Negative Normal [facility] Comment on above: Order Comment: Relea se to patient->Automatic [id number]&Blood Result Comment: NEGA TIVE: SARS-CoV-2 RNA was NOT detected - Interpretation: A negative result indicates severe acute respiratory syndrome coronavirus 2 (SARS-CoV-2) RNA was not detected. Negative results do not preclude SARS-CoV-2 infection and should not be used as the sole basis for patient management decisions. Negative results must be combined with clinical observations, patient history, and epidemiological information. The possibility of a false negative result should be considered if the patient's recent exposures or clinical presentation suggest that SARS-CoV-2 infection is possible, and diagnostic tests for other causes of illness are negative. If SARS-CoV-2 infection is still suspected, re-testing should be considered. - Method: Real-time reverse transcriptase PCR amplification for the qualitative detection of the ORF1 a/b non-structural region that is unique to SARS-CoV-2 and a conserved region in the structural protein envelope E-gene for do-Sarbecovirus detection using the [place] SARS-CoV-2 assay on the [employer] [place] 6800 System. - Comment: This test has received FDA Emergency Use Authorization (EUA) and has been verified by [facility]. This test is only authorized for the duration of the public health emergency declaration and the circumstances that exist to justify the authorization of the emergency use of in vitro diagnostic tests for the detection of SARS-CoV-2 virus and/or diagnosis of COVID-19 infection under section 564(b)(1) of the Act, 21 U.S.C. 360bbb-3(b)(1), unless the authorization is terminated or revoked sooner. This test has not been FDA cleared or approved. Results should be used in conjunction with clinical findings, and should not form the sole basis for a diagnosis or treatment decision. - Fact Sheets for this EUA can be found at the following links: For Healthcare Providers: www.fda.gov/media/287454/download For Patients: www.[employer].gov/media/328453/download - Reference Value: Negative Performed By: #### R ENAL #### [place] [address] ROME SARS CoV-2 RT PCR Not detected Normal [facility] Comment on above: Order Comment: Relea se to patient->Automatic [id number]&Blood Performed By: #### R ENAL #### [place] [address] SARS-CoV-2 (COVID-19) RT-PCR on 10-07-2021 Employed in Healthcare setting? No Normal [facility] Comment on above: Order Comment: Relea se to patient->Automatic 14315&Blood Performed By: #### R ENAL #### [place] [address] Hospitalized? No Normal [facility] Comment on above: Order Comment: Relea se to patient->Automatic [id number]&Blood Performed By: #### R ENAL #### [place] [address] ICU? No Normal [facility] Comment on above: Order Comment: Relea se to patient->Automatic [id number]&Blood Performed By: #### R ENAL #### [place] [address] Resident in congregate care setting? No Normal [facility] Comment on above: Order Comment: Relea se to patient->Automatic [id number]&Blood Performed By: #### R ENAL #### [place] [address] SARS-CoV-2 (COVID-19) RNA CHUCK+probe Ql (Unsp spec) Yes Normal [facility] Comment on above: Order Comment: Relea se to patient->Automatic 44711&Blood Performed By: #### R ENAL #### [facility] [address] [place] [address] Symptomatic as defined by CDC? No Normal [facility] Comment on above: Order Comment: Relea se to patient->Automatic 57736&Blood Performed By: #### R ENAL #### [facility] [address] [place] [address] Progress Noteon 10-04-2021 [employer] Authentication Interface Message Text Patient ID: Yoanna Cueto is a 15 y.o. male. His chief complaint(s) include: Pre-op Exam (Kidney reconstruction) Assessment 1. Hydronephrosis with ureteropelvic junction (UPJ) obstruction 2. Pre-op exam Plan Yoanna was seen today for pre-op exam. Diagnoses and all orders for this visit: Hydronephrosis with ureteropelvic junction (UPJ) obstruction Pre-op exam Return for any symptoms of illness. Initial BP elevated but repeat manual BP after visit WNL. -Educated family that if patient develops viral illness, fever, requires unexpected breathing treatments or antibiotics or any other changes prior to surgery to notify the surgery center. -Educated family to stop all herbals/multivitamins/i buprofen products at least 3 days prior to surgery. Subjective He is accompanied by his mother. Independent history obtained from mother. Pre-op Exam Yoanna is scheduled to have Pyeloplasty. The procedure date is 10/10/2021. The patient's symptoms have included no chills, no fatigue, no fever, no dizziness, no rash, no bilateral ear pain, no congestion, no rhinorrhea, no sneezing, no sore throat, no difficulty breathing, no shortness of breath, no headaches, no abdominal pain, no nausea, no vomiting, no dysuria, no diarrhea, no neck stiffness and no chest pain. The patient's past medical history includes prior anesthesia and kidney disease. The patient's past medical history includes no previous anesthesia reaction, no pulmonary disease, no diabetes, no cardiovascular disease, no history of blood transfusion reaction, no impaired immunity, no recent steriod use, no frequent aspirin/NSAID use, no clotting disorder, no bleeding problem and no past medical history reported. The patient's family history is positive for clotting disorder (Mom- mom unsure, thinks maybe factor V). The patient's family history is negative for no family medical history reported, sudden in family, anesthesia reaction and bleeding disorder. The patient has been exposed to no sick contacts. Primary Care Review of Systems Objective Vital Signs 10/04/21 1103 10/04/21 1106 10/04/21 1211 BP: 134/67 (!) 148/67 110/62 Pulse: 67 67 Weight: 51.4 kg Height: 172.7 cm Body mass index is 17.23 kg/m . Physical Exam Constitutional: He appears well. He is active. No distress. HENT: Head: Atraumatic. Ears: Right Ear: Tympanic membrane and external ear normal. Left Ear: Tympanic membrane and external ear normal. Nose: Nose normal. No nasal discharge. Mouth/Throat: Mucous membranes are moist. Dentition is normal. No pharynx erythema. Oropharynx is clear. Eyes: Conjunctivae are normal. Pupils are equal, round, and reactive to light. Neck: Neck supple. Thyroid normal. Cardiovascular: Normal rate, regular rhythm, S1 normal and S2 normal. Pulses are palpable. Heart murmur not heard. Pulmonary/Chest: Breath sounds normal. No respiratory distress. Exhibits no deformity. Abdominal: Soft. Bowel sounds are normal. He exhibits no distension and no mass. There is no hepatosplenomegaly. There is no abdominal tenderness. Genitourinary: Did not examine. Musculoskeletal: Cervical back: Normal range of motion and neck supple. Lumbar back: No scoliosis. General: Normal range of motion. Lymphadenopathy: No right anterior and posterior cervical adenopathy present. No left anterior and posterior cervical adenopathy present. Neurological: He is alert. He has normal strength. He exhibits normal muscle tone. Gait normal. Skin: Skin is warm. Skin is not pale. Findings: No rash. Normal [facility] Plasma Renin Activityon 05-2 Plasma Renin Activity 3.2 ng/mL/h Normal [facility] Comment on above: Order Comment: Relea se to patient->Automatic [id number]&Blood Result Comment: REFERENCE VALUE Mean: 1.8 Range: 1.2-2.4 Mean data not standardized as to time of day or diet. Infants were supine, children sitting. ADDITIONAL INFORMATION Testing performed by Liquid Chromatography-Tandem Mass Spectrometry (LC-MS/MS). This test was developed and its performance characteristics determined by [facility] in a manner consistent with CLIA requirements. This test has not been cleared or approved by the U.S. Food and Drug Administration. Test Performed by: [facility] [address] [place] [address] Computer Numerical Control Machinist: Marlon Jorgensen M.D. Ph.D.; CLIA# [id number] Performed By: #### R ENAL #### [place] [address] Progress Noteon 08-06-2021 [employer] Sergeant Authentication Interface Message Text Yoanna Cueto is here for follow-up for: Other (Stent ck; getting US; mom says pt has bladder spasms) History of Presenting Problem: Patient is accompanied by and history obtained from mom. mom. 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 Underwent stent placement. Here for repeat bloodwork and BP check. HAving bladder spasms but no flank pain. Past Medical History: History reviewed. No pertinent past medical history. Past Surgical History: Procedure Laterality Date CIRCUMCISION TONSILLECTOMY URETER STENT PLACEMENT N/A 07/23/2021 RIGHT URETERAL STENT INSERTION performed by Rodger Reyes MD at [facility] OR Allergies: Allergies Allergen Reactions Apricot Flavor Swelling Augmentin [Amoxicillin-Pot Clavulanate] Hives Honey Bee Treatment [Bee Venom] Nausea And Vomiting Honey only/not the bee venom Medications: Outpatient Encounter Medications as of 08/06/2021 Medication Sig Dispense Refill tamsulosin (FLOMAX) 0.4 MG capusle Take 1 Capsule (0.4 mg) by mouth daily as needed for Other (stent discomfort) for up to 30 days 60 Capsule 1 BUTALBITAL-ACETAMINOPHE N PO Take by mouth (Patient not taking: Reported on 08/06/2021) labetalol (NORMODYNE) 100 MG tablet Take 1 Tablet (100 mg) by mouth 2 times daily (Patient not taking: No sig reported) 60 Tablet 1 ELDERBERRY PO Take by mouth (Patient not taking: No sig reported) acetaminophen (TYLENOL) 250 MG TABS Take by mouth (Patient not taking: Reported on 08/06/2021) No facility-administered encounter medications on file as of 08/06/2021. Family Medical History: Family History Problem Relation Age of Onset Diabetes Mother High Cholesterol Mother [place] Before 50 Paternal Grandfather No known problems Father Allergies Brother seasonal allergies No known problems Brother Social History: Social History Socioeconomic History Marital status: Single Spouse name: Not on file Number of children: Not on file Years of education: Not on file Highest education level: Not on file Occupational History Not on file Tobacco Use Smoking status: Never Smokeless tobacco: Never Substance and Sexual Activity Alcohol use: Not on file Drug use: Not on file Sexual activity: Not on file Other Topics Concern Not on file Social History Narrative Not on file Additional History Is the patient on a special diet? No Age at toilet training? 1yrs Per parents, immunizations are up to date. Yes Patient lives with? Parents Factors which may affect learning None Review of Systems: Pertinent items are noted in HPI. Physical Examination: Physical Exam Vitals: 08/06/21 1454 Weight: 51.4 kg Height: 171.5 cm General: Well appearing, alert Eyes: Pupils equal, conjunctivae normal ENT: Ears normal, no nasal discharge Neck: Neck supple, trachea normal Resp: Normal effort, no chest wall deformity Abdomen: Non-tender, no masses Musculoskeletal: No deformity, no edema Neurologic: Normal sensation, normal strength Skin: Warm and dry to palpation, no rash : no cvat Laboratory Testing: No results found for this visit on 08/06/21. Imaging: Renal/Bladder Ultrasound Bladder Post Void Residual: None Hydroureter: No Bladder Debris: No Transverse Rectal Diameter: Other Findings: Normal Central Pelvis: Yes Kidneys Right Kidney Left Kidney Length: 10.03 Length: 10.64 Parenchyma: Normal Parenchyma: Normal Grade of HydronephrosisNone Grade of HydronephrosisNone AP diameter of pelvis AP diameter of pelvis Assessment & Plan: Yoanna was seen today for other. 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 If creatinine/renin improved, will proceed with lap pyeloplasty We discussed the indication for surgery (right upj obstruction, elevated BP and creatinine) and potential benefit (lower BP and creatinine). We also discussed risks, benefits, and alternatives of the surgical procedure (right laparoscopic pyeloplasty), including, but not limited to, need for open incision, persistent high BP or creatinine, continued pain, bleeding, infection, injury to nearby organs, failure of the procedure, recurrence, need for further surgery, problems with anesthesia, and other rare life-threatening complications. The family verbalized understanding and wishes to proceed with the above stated procedure. They also understand the risks and benefits of observation or doing nothing. We discussed NPO guidelines. The family/patient was provided an opportunity to ask questions, and all questions were answered to their satisfaction. Rodger Reyes MD August 06, 2021 Normal [facility] Renal Function Panelon 08-06 Albumin [Mass/Vol] 4.8 g/dL High 3.2 - 4.5 g/dL [facility] Calcium [Mass/Vol] 9.5 mg/dL 7.6 - 11 mg/dL [facility] Chloride [Moles/Vol] 104 mmol/L 96 - 10 8 mmol/L [facility] CO2 [Moles/Vol] 24.7 mmol/L 22 - 29 mmol/L [facility] Creatinine [Mass/Vol] 0.89 mg/dL 0.7 - 1.2 mg/dL [facility] Glucose [Mass/Vol] 96 mg/dL 70 - 99 mg/dL [facility] Comment on above: Criteria for Diagnos is of Diabetes: Fasting Specimen (no caloric intake for at least 8 hours): <100 mg/dL Normal 100-125 mg/dL Increased risk for Diabetes >125 mg/dL Diagnostic for Diabetes Random Glucose (any time of day without regard to last meal): > or = 200 mg/dL plus Classic Symptoms of Diabetes Interpretation and review of laboratory results Abnormal [facility] Phosphate [Mass/Vol] 4.4 mg/dL 2.7 - 4 .5 mg/dL [facility] Potassium [Moles/Vol] 3.8 mmol/L 3.3 - 5.1 mmol/L [facility] Sodium [Moles/Vol] 140 mmol/L 133 - 145 mmol/L [facility] Urea nitrogen [Mass/Vol] 16 mg/dL 4 - 19 mg/dL [facility] Release to patient->Automatic [facility] Renal Panelon 08-06-2021 Albumin [Mass/Vol] 4.8 g/dL High 3.2-4.5 [facility] Comment on above: Order Comment: Relea se to patient->Automatic [id number]&Blood Performed By: #### R ENAL #### [address] [address] Calcium [Mass/Vol] 9.5 mg/dL Normal 7.6-11.0 [facility] Comment on above: Order Comment: Relea se to patient->Automatic [id number]&Blood Performed By: #### R ENAL #### [address] [address] CO2 [Moles/Vol] 24.7 mmol/L Normal 22.0-29.0 [facility] Comment on above: Order Comment: Relea se to patient->Automatic [id number]&Blood Performed By: #### R ENAL #### [address] [address] Creatinine [Mass/Vol] 0.89 mg/dL Normal 0.70-1.20 [facility] Comment on above: Order Comment: Relea se to patient->Automatic [id number]&Blood Performed By: #### R ENAL #### [address] [address] Glucose [Mass/Vol] 96 mg/dL Normal 70-99 [facility] Comment on above: Order Comment: Relea se to patient->Automatic [id number]&Blood Result Comment: Lucho parr for Diagnosis of Diabetes: Fasting Specimen (no caloric intake for at least 8 hours): <100 mg/dL Normal 100-125 mg/dL Increased risk for Diabetes >125 mg/dL Diagnostic for Diabetes Random Glucose (any time of day without regard to last meal): > or = 200 mg/dL plus Classic Symptoms of Diabetes Performed By: #### R ENAL #### [address] [address] Phosphate [Mass/Vol] 4.4 mg/dL Normal 2.7-4.5 [place] Comment on above: Order Comment: Relea se to patient->Automatic [id number]&Blood Performed By: #### R ENAL #### [address] [address] Urea nitrogen [Mass/Vol] 16 mg/dL Normal 4-19 [facility] Comment on above: Order Comment: Relea se to patient->Automatic 26503&Blood Performed By: #### R ENAL #### [address] [address] Chloride [Moles/Vol] 104 mmol/L Normal 96-108 [place] Comment on above: Order Comment: Relea se to patient->Automatic 60586&Blood Performed By: #### R ENAL #### [address] [address] Potassium [Moles/Vol] 3.8 mmol/L Normal 3.3-5.1 [facility] Comment on above: Order Comment: Relea se to patient->Automatic 27727&Blood Performed By: #### R ENAL #### [address] [address] Sodium [Moles/Vol] 140 mmol/L Normal 133-145 [facility] Comment on above: Order Comment: Relea se to patient->Automatic 08255&Blood Performed By: #### R ENAL #### [address] [address] OR RETROGRADE PYELOGRAMon OR RETROGRADE PYELOGRAM CLINICAL HISTORY: pyelogram with stent insertion COMPARISON: None. IMPRESSION: 19 seconds of fluoroscopy time were provided for Dr. Reyes during this procedure. 8 static images were obtained and have limited detail on transfr to the PACS system. This dictation is for documentation of intraoperative guidance provided by technical technical support assistant. Please see operative note for further detail. This report has been created using voice recognition software Signed by: Dr. Abida Marx at 07/23/2021 11:25 Normal [facility] Urine Cultureon 07-23-2021 Bacteria identified Cx Nom (U) Release to patient->Automatic [id number]&Urine^^^Urine&Uri ne Urine Culture: No growth. Source: URINE Collected: 07/23/21 09:46 Site: Received : 07/23/21 10:35 Urine Culture FINAL 07/25/21 08:07 No growth. Normal [facility] Comment on above: Performed By: #### C YSTC #### [address] [address] XR Kidney Views during surge ry W contrast retrogradeon 07-23-2021 CLINICAL HISTORY: pyelogram with stent insertion COMPARISON: None. [facility] RADIOLOGY Abida Marx, - 07/23/2021 CLINICAL HISTORY: pyelogram with stent insertion COMPARISON: None. IMPRESSION: 19 seconds of fluoroscopy time were provided for Dr. Reyes during this procedure. 8 static images were obtained and have limited detail on transfer to the PACS system. This dictation is for documentation of intraoperative guidance provided by technical technical support assistant. Please see operative note for further detail. This report has been created using voice recognition software [facility] Radiology Study observation (narrative) [facility] XR Kidney Views during surge ry W contrast retrogradeOrdered By: Abida Marx on 07-23-2021 [facility] Work Phone: Progress Noteon 04-28-2022 [employer] Sergeant Authentication Interface Message Text Yoanna Cueto is here for follow-up for: Ureteropelvic Junction Obstruction History of Presenting Problem: Patient is accompanied by and history obtained from parents. HX of intermittent flank pain. Diagnosed with UPJ, but MAG-3 revealed = function with only slightly delayed drain out. Family chose to observe. Follows with nephrology. Creatinine has risen and BP elevated. Here to repeat ultrasound and discuss stent vs formal pyeloplasty. Rarely has pain. IT's tolerable. On beta abhishek. HAving headaches. Repeat RFP and renin ordered. Past Medical History: History reviewed. No pertinent past medical history. Past Surgical History: Procedure Laterality Date CIRCUMCISION TONSILLECTOMY Allergies: Allergies Allergen Reactions Apricot Flavor Swelling Augmentin [Amoxicillin-Pot Clavulanate] Hives Honey Bee Treatment [Bee Venom] Nausea And Vomiting Honey only/not the bee venom Medications: Outpatient Encounter Medications as of 07/18/2021 Medication Sig Dispense Refill BUTALBITAL-ACETAMINOPHE N PO Take by mouth ELDERBERRY PO Take by mouth acetaminophen (TYLENOL) 250 MG TABS Take by mouth ibuprofen (MOTRIN) 200 MG tablet Take by mouth Take with meals. labetalol (NORMODYNE) 100 MG tablet Take 1 Tablet (100 mg) by mouth 2 times daily (Patient not taking: Reported on 07/18/2021) 60 Tablet 1 No facility-administered encounter medications on file as of 07/18/2021. Family Medical History: Family History Problem Relation Age of Onset Diabetes Mother High Cholesterol Mother [place] Before 50 Paternal Grandfather No known problems Father Allergies Brother seasonal allergies No known problems Brother Social History: Social History Socioeconomic History Marital status: Single Spouse name: Not on file Number of children: Not on file Years of education: Not on file Highest education level: Not on file Occupational History Not on file Tobacco Use Smoking status: Never Smoker Smokeless tobacco: Never Used Substance and Sexual Activity Alcohol use: Not on file Drug use: Not on file Sexual activity: Not on file Other Topics Concern Not on file Social History Narrative Not on file Additional History Is the patient on a special diet? No Age at toilet training? 1yrs Per parents, immunizations are up to date. Yes Patient lives with? Parents Factors which may affect learning None Review of Systems: Pertinent items are noted in HPI. Physical Examination: Physical Exam Vitals: 07/18/21 0903 Weight: 52.7 kg Height: 172 cm General: Well appearing, alert Eyes: Pupils equal, conjunctivae normal ENT: Ears normal, no nasal discharge Neck: Neck supple, trachea normal Resp: Normal effort, no chest wall deformity Abdomen: Non-tender, no masses Musculoskeletal: No deformity, no edema Neurologic: Normal sensation, normal strength Skin: Warm and dry to palpation, no rash : bladder non distended, no CVAT Laboratory Testing: No results found for this visit on 07/18/21. Last Result Renal function panel Collection Time: 07/04/21 12:00 PM Result Value Ref Range Sodium 137 133 - 145 mmol/L Potassium 3.9 3.3 - 5.1 mmol/L Chloride 101 96 - 108 mmol/L Carbon Dioxide 24.9 22.0 - 29.0 mmol/L BUN 10 4 - 19 mg/dL Glucose 107 (H) 70 - 99 mg/dL Comment: Criteria for Diagnosis of Diabetes: Fasting Specimen (no caloric intake for at least 8 hours): <100 mg/dL Normal 100-125 mg/dL Increased risk for Diabetes >125 mg/dL Diagnostic for Diabetes Random Glucose (any time of day without regard to last meal): > or = 200 mg/dL plus Classic Symptoms of Diabetes Creatinine 0.94 0.70 - 1.20 mg/dL Albumin 5.3 (H) 3.2 - 4.5 g/dL Calcium 9.8 7.6 - 11.0 mg/dL Phosphorus 3.1 2.7 - 4.5 mg/dL Narrative Release to patient->Automatic Imaging: Renal/Bladder Ultrasound Bladder Post Void Residual: None Hydroureter: No Bladder Debris: No Transverse Rectal Diameter: Other Findings: Normal Central Pelvis: Yes Kidneys Right Kidney Left Kidney Length: 11.4 Length: 10.8 Parenchyma: Normal Parenchyma: Normal Grade of HydronephrosisGrade III Grade of HydronephrosisNone AP diameter of pelvis AP diameter of pelvis Assessment & Plan: Yoanna was seen today for ureteropelvic junction obstruction. Diagnoses and all orders for this visit: Other hydronephrosis - Kidney/Bladder Ultrasound - Case Request: RIGHT URETERAL STENT INSERTION; Standing - Case Request: RIGHT URETERAL STENT INSERTION Symptoms involving urinary system Flank pain Congenital obstruction of ureteropelvic junction Elevated blood pressure reading without diagnosis of hypertension Discussed placement of stent to see if BP/creatinine normalize. We also discussed lap pyeloplasty. Family prefers to try stent first since not having any significant pain and MAG-3 relatively normal. We discussed the indication for surgery (hypertension with hydronephrosis) and potential benefit (more content not included)... Normal [facility] Renal Panelon 07-18-2021 Phosphate [Mass/Vol] 3.1 mg/dL Normal 2.7-4.5 [place] Comment on above: Order Comment: Relea se to patient->Automatic [id number]&Blood Performed By: #### R ENAL #### [address] [address] Urea nitrogen [Mass/Vol] 10 mg/dL Normal 4-19 [facility] Comment on above: Order Comment: Relea se to patient->Automatic [id number]&Blood Performed By: #### R ENAL #### [address] [address] Albumin [Mass/Vol] 4.7 g/dL High 3.2-4.5 [facility] Comment on above: Order Comment: Relea se to patient->Automatic [id number]&Blood Performed By: #### R ENAL #### [address] [address] Calcium [Mass/Vol] 10.0 mg/dL Normal 7.6-11.0 [facility] Comment on above: Order Comment: Relea se to patient->Automatic [id number]&Blood Performed By: #### R ENAL #### [address] [address] CO2 [Moles/Vol] 25.1 mmol/L Normal 22.0-29.0 [facility] Comment on above: Order Comment: Relea se to patient->Automatic [id number]&Blood Performed By: #### R ENAL #### [address] [address] Creatinine [Mass/Vol] 0.94 mg/dL Normal 0.70-1.20 [facility] Comment on above: Order Comment: Relea se to patient->Automatic 93785&Blood Performed By: #### R ENAL #### [address] [address] Glucose [Mass/Vol] 82 mg/dL Normal 70-99 [facility] Comment on above: Order Comment: Relea se to patient->Automatic 64507&Blood Result Comment: Crit keshav for Diagnosis of Diabetes: Fasting Specimen (no caloric intake for at least 8 hours): <100 mg/dL Normal 100-125 mg/dL Increased risk for Diabetes >125 mg/dL Diagnostic for Diabetes Random Glucose (any time of day without regard to last meal): > or = 200 mg/dL plus Classic Symptoms of Diabetes Performed By: #### R ENAL #### [address] [address] Chloride [Moles/Vol] 104 mmol/L Normal 96-108 [place] Comment on above: Order Comment: Relea se to patient->Automatic 92500&Blood Performed By: #### R ENAL #### [address] [address] Potassium [Moles/Vol] 4.5 mmol/L Normal 3.3-5.1 [facility] Comment on above: Order Comment: Relea se to patient->Automatic 48873&Blood Performed By: #### R ENAL #### [address] [address] Sodium [Moles/Vol] 139 mmol/L Normal 133-145 [facility] Comment on above: Order Comment: Relea se to patient->Automatic 67216&Blood Performed By: #### R ENAL #### [address] [address] Renal function panelon 07-18 Albumin [Mass/Vol] 4.7 g/dL High 3.2 - 4.5 g/dL [facility] Calcium [Mass/Vol] 10.0 mg/dL 7.6 - 11. 0 mg/dL [facility] Chloride [Moles/Vol] 104 mmol/L 96 - 10 8 mmol/L [facility] CO2 [Moles/Vol] 25.1 mmol/L 22.0 - 29.0 mmol/L [facility] Creatinine [Mass/Vol] 0.94 mg/dL 0.70 - 1.20 mg/dL [facility] Glucose [Mass/Vol] 82 mg/dL 70 - 99 mg/dL [facility] Comment on above: Criteria for Diagnos is of Diabetes: Fasting Specimen (no caloric intake for at least 8 hours): <100 mg/dL Normal 100-125 mg/dL Increased risk for Diabetes >125 mg/dL Diagnostic for Diabetes Random Glucose (any time of day without regard to last meal): > or = 200 mg/dL plus Classic Symptoms of Diabetes Interpretation and review of laboratory results Abnormal [facility] Phosphate [Mass/Vol] 3.1 mg/dL 2.7 - 4 .5 mg/dL [facility] Potassium [Moles/Vol] 4.5 mmol/L 3.3 - 5.1 mmol/L [facility] Sodium [Moles/Vol] 139 mmol/L 133 - 145 mmol/L [facility] Urea nitrogen [Mass/Vol] 10 mg/dL 4 - 19 mg/dL [facility] Release to patient->Automatic [facility] Progress Noteon 07-15-2021 [employer] Authentication Interface Message Text ABPM downloaded, reviewed and interpretation placed in ordering physician's mailbox for review. Normal [facility] Plasma Renin Activityon 06-21 Plasma Renin Activity 9.2 ng/mL/h Normal [facility] Comment on above: Order Comment: Relea se to patient->Automatic [id number]&Blood Result Comment: REFERENCE VALUE Mean: 1.8 Range: 1.2-2.4 Mean data not standardized as to time of day or diet. Infants were supine, children sitting. ADDITIONAL INFORMATION Testing performed by Liquid Chromatography-Tandem Mass Spectrometry (LC-MS/MS). This test was developed and its performance characteristics determined by [facility] in a manner consistent with CLIA requirements. This test has not been cleared or approved by the U.S. Food and Drug Administration. Test Performed by: [facility] [address] [place] [address] Computer Numerical Control Machinist: Marlon Jorgensen M.D. Ph.D.; CLIA# [id number] Performed By: #### Eric YSTC #### [place] [id number] Cystatin Con 07-05-2021 Cystatin C 0.82 mg/L Normal [facility] Comment on above: Order Comment: Relea se to patient->Automatic [id number]&Blood Result Comment: REFERENCE VALUE Reference values have not been established for patients who are less than 18 years of age. Refer to estimated GFR. Test Performed by: [facility] [place] [id number] [employer] Numer[employer] Control Machinist: Marlon Jorgensen M.D. Ph.D.; CLIA# [id number] Performed By: #### C YSTC #### [address] [address] Est GFR by Cystatin C 85 mL/min/BSA Normal >60 [facility] Comment on above: Order Comment: Relea se to patient->Automatic [id number]&Blood Result Comment: Mariah mated GFR calculated using the Denson (2012) Cystatin C equation. ADDITIONAL INFORMATION Cystatin C-based eGFR may differ substantially from creatinine- based eGFR in patients with abnormal muscle mass or acutely changing renal function. Please interpret together with relevant clinical features. On 08/16/2020 the cystatin C assay method changed. Cystatin C eGFR results > 50 ml/min/1.73m2 are approximately 10% lower with the new assay. Performed By: #### C YSTC #### [address] [address] T. Protein Urine, Randomon 0 07-05-2021 Protein (U) [Mass/Vol] 57 mg/dL High 0-11 [facility] Comment on above: Performed By: #### C YSTC #### [address] [address] Creatinine Urine, Randomon 0 07-04-2021 Creatinine Urine, Minetto. 144.0 mg/dL Normal 39.0-259.0 [facility] Comment on above: Result Comment: Refe rence interval applies to first morning urine collection. No reference interval established for random urine collections. Performed By: #### R ENAL #### [address] [address] Creatinine, Urine Random 144 mg/dL 39.0 - 259.0 mg/dL [facility] Comment on above: Reference interval a pplies to first morning urine collection. No reference interval established for random urine collections. [facility] No Panel Informationon 07-04 Interpretation and review of laboratory results Abnormal [facility] Release to patient->[facility]omatic [facility] Renal Panelon 07-04-2021 Albumin [Mass/Vol] 5.3 g/dL High 3.2-4.5 [facility] Comment on above: Order Comment: Relea se to patient->Automatic [id number]&Blood Performed By: #### C YSTC #### [address] [address] Calcium [Mass/Vol] 9.8 mg/dL Normal 7.6-11.0 [facility] Comment on above: Order Comment: Relea se to patient->Automatic [id number]&Blood Performed By: #### C YSTC #### [address] [address] CO2 [Moles/Vol] 24.9 mmol/L Normal 22.0-29.0 [facility] Comment on above: Order Comment: Relea se to patient->Automatic [id number]&Blood Performed By: #### C YSTC #### [address] [address] Creatinine [Mass/Vol] 0.94 mg/dL Normal 0.70-1.20 [facility] Comment on above: Order Comment: Relea se to patient->Automatic [id number]&Blood Performed By: #### C YSTC #### [address] [address] Glucose [Mass/Vol] 107 mg/dL High 70-99 [facility] Comment on above: Order Comment: Relea se to patient->Automatic [id number]&Blood Result Comment: Lucho parr for Diagnosis of Diabetes: Fasting Specimen (no caloric intake for at least 8 hours): <100 mg/dL Normal 100-125 mg/dL Increased risk for Diabetes >125 mg/dL Diagnostic for Diabetes Random Glucose (any time of day without regard to last meal): > or = 200 mg/dL plus Classic Symptoms of Diabetes Performed By: #### C YSTC #### [address] [address] Phosphate [Mass/Vol] 3.1 mg/dL Normal 2.7-4.5 [place] Comment on above: Order Comment: Relea se to patient->Automatic 30868&Blood Performed By: #### C YSTC #### [address] [address] Urea nitrogen [Mass/Vol] 10 mg/dL Normal 4-19 [facility] Comment on above: Order Comment: Relea se to patient->Automatic [id number]&Blood Performed By: #### C YSTC #### [place] [address] Chloride [Moles/Vol] 101 mmol/L Normal 96-108 [place] Comment on above: Order Comment: Relea se to patient->Automatic [id number]&Blood Performed By: #### C YSTC #### [address] [address] Potassium [Moles/Vol] 3.9 mmol/L Normal 3.3-5.1 [facility] Comment on above: Order Comment: Relea se to patient->Automatic [id number]&Blood Performed By: #### C YSTC #### [place] [address] Sodium [Moles/Vol] 137 mmol/L Normal 133-145 [facility] Comment on above: Order Comment: Relea se to patient->Automatic [id number]&Blood Performed By: #### C YSTC #### [place] [address] Renal function panelon 07-04 Albumin [Mass/Vol] 5.3 g/dL High 3.2 - 4.5 g/dL [facility] Calcium [Mass/Vol] 9.8 mg/dL 7.6 - 11. 0 mg/dL [facility] Chloride [Moles/Vol] 101 mmol/L 96 - 10 8 mmol/L [facility] CO2 [Moles/Vol] 24.9 mmol/L 22.0 - 29.0 mmol/L [facility] Creatinine [Mass/Vol] 0.94 mg/dL 0.70 - 1.20 mg/dL [facility] Glucose [Mass/Vol] 107 mg/dL High 70 - 99 mg/dL [facility] Comment on above: Criteria for Diagnos is of Diabetes: Fasting Specimen (no caloric intake for at least 8 hours): <100 mg/dL Normal 100-125 mg/dL Increased risk for Diabetes >125 mg/dL Diagnostic for Diabetes Random Glucose (any time of day without regard to last meal): > or = 200 mg/dL plus Classic Symptoms of Diabetes Phosphate [Mass/Vol] 3.1 mg/dL 2.7 - 4 .5 mg/dL [facility] Potassium [Moles/Vol] 3.9 mmol/L 3.3 - 5.1 mmol/L [facility] Sodium [Moles/Vol] 137 mmol/L 133 - 145 mmol/L [facility] Urea nitrogen [Mass/Vol] 10 mg/dL 4 - 19 mg/dL [facility] TSH with Reflex to T4, Freeo n 07-04-2021 TSH with reflex to T4, Free 3.14 [facility] Release to patient->Automatic [facility] TSH with reflex T4FRon 07-04 TSH with reflex T4FR 3.140 uIU/mL Normal 0.500-4.300 [facility] Comment on above: Order Comment: Relea se to patient->Automatic [id number]&Blood Performed By: #### R ENAL #### [place] [address] Total Protein Urine, Randomo n 07-04-2021 Interpretation and review of laboratory results Abnormal [facility] Protein (U) [Mass/Vol] 57 mg/dL High 0 - 11 mg/dL [facility] Vitamin D 25 OHon 07-04-2021 25 [place] Vitamin D 20 ng/mL Low 30-100 [facility] Comment on above: Order Comment: Relea se to patient->Automatic [id number]&Blood Result Comment: Refe rence ranges provided by [facility] Laboratory are based on Endocrine Society Guidelines: Level: Characterization <21 ng/mL: Vitamin D deficiency 21-29 ng/mL: Suboptimal Vitamin D status 30-100 ng/mL: Optimal Vitamin D status >100 ng/mL: Potentially toxic Vitamin D effects Performed By: #### V 25DH #### [place] [address] Vitamin D 25 hydroxyon 07-04 25 [place] Vitamin D 20 ng/mL Low 30 - 100 ng/mL [facility] Comment on above: Reference ranges pro vided by [facility] are based on Endocrine Society Guidelines: Level: Characterization <21 ng/mL: Vitamin D deficiency 21-29 ng/mL: Suboptimal Vitamin D status 30-100 ng/mL: Optimal Vitamin D status >100 ng/mL: Potentially toxic Vitamin D effects Vital Signs Date Time Vital Sign Value Performing Clinician Facility 10-04-2022 04:42-0400 Diastolic blood pressure 67 mm[Hg] [facility] 10-04-2022 04:42-0400 Heart rate 72 /min [facility] 10-04-2022 04:42-0400 Respiratory rate 18 /min [facility] 10-04-2022 04:42-0400 SaO2% (BldA) [Mass fraction] 100 % [facility] 10-04-2022 04:42-0400 Systolic blood pressure 124 mm[Hg] [facility] 10-04-2022 00:39-0400 Body height 175.26 cm [facility] 10-04-2022 00:39-0400 Body mass index (BMI) [Percentile] Per age and sex 17.3 % [facility] 10-04-2022 00:39-0400 Body mass index (BMI) [Ratio] 20 kg/m2 [facility] 10-04-2022 00:39-0400 Body temperature 98 [degF] [facility] 10-04-2022 00:39-0400 Body weight 61.7 kg [facility] 10-02-2022 17:26-0400 Body temperature 98.71 [degF] Cindy Velazquez PA-C Work Phone: [facility] 10-02-2022 17:26-0400 Body weight 60.78 kg Cindy Athy PA-C Work Phone: [facility] 10-02-2022 17:26-0400 Diastolic blood pressure 68 mm[Hg] Cindy Espinoy PA-C Work Phone: [facility] 10-02-2022 17:26-0400 Heart rate 76 /min Cindy Espinoy PA-C Work Phone: [facility] 10-02-2022 17:26-0400 Respiratory rate 16 /min Cindy Espinoy PA-C Work Phone: [facility] 10-02-2022 17:26-0400 SaO2% (BldA) [Mass fraction] 96 % Cindy Athy PA-C Work Phone: [facility] 10-02-2022 17:26-0400 Systolic blood pressure 130 mm[Hg] Cindy Espinoy PA-C Work Phone: [facility] 06-12-2022 11:41-0400 Body height 175.26 cm [facility] 06-12-2022 11:41-0400 Body mass index (BMI) [Percentile] Per age and sex 2 % [facility] 06-12-2022 11:41-0400 Body mass index (BMI) [Ratio] 17.8 kg/m2 [facility] 06-12-2022 11:41-0400 Body temperature 99.1 [degF] [facility] 06-12-2022 11:41-0400 Body weight 54.83 kg [facility] 06-12-2022 11:41-0400 Diastolic blood pressure 74 mm[Hg] [facility] 06-12-2022 11:41-0400 Heart rate 103 /min [facility] 06-12-2022 11:41-0400 Respiratory rate 18 /min [facility] 06-12-2022 11:41-0400 SaO2% (BldA) [Mass fraction] 96 % [facility] 06-12-2022 11:41-0400 Systolic blood pressure 119 mm[Hg] [facility] 05-20-2022 17:43-0500 Body temperature 97.9 [degF] Cindy Espinoy PA-C Work Phone: [facility] 05-20-2022 17:43-0500 Body weight 56.34 kg Cindy Athy PA-C Work Phone: [facility] 05-20-2022 17:43-0500 Diastolic blood pressure 78 mm[Hg] Cindy Athy PA-C Work Phone: [facility] 05-20-2022 17:43-0500 Heart rate 60 /min Cindy Athy PA-C Work Phone: [facility] 05-20-2022 17:43-0500 Respiratory rate 16 /min Cindy Athy PA-C Work Phone: [facility] 05-20-2022 17:43-0500 SaO2% (BldA) [Mass fraction] 98 % Cindy Athy PA-C Work Phone: [facility] 05-20-2022 17:43-0500 Systolic blood pressure 122 mm[Hg] Cindy Athy PA-C Work Phone: [facility] 03-19-2022 08:06-0500 Body temperature 99.3 [degF] Cas Isra PARLOR MAID.MANAGER WATER Work Phone: [facility] 03-19-2022 08:06-0500 Body weight 55.25 kg Cas Isra PARLOR MAID.MANAGER WATER Work Phone: [facility] 03-19-2022 08:06-0500 Diastolic blood pressure 82 mm[Hg] Acs Isra PARLOR MAID.MANAGER WATER Work Phone: [facility] 03-19-2022 08:06-0500 Heart rate 96 /min Cas Isra PARLOR MAID.MANAGER WATER Work Phone: [facility] 03-19-2022 08:06-0500 Respiratory rate 16 /min Cas Isra PARLOR MAID.MANAGER WATER Work Phone: [facility] 03-19-2022 08:06-0500 SaO2% (BldA) [Mass fraction] 98 % Cas Isra PARLOR MAID.MANAGER WATER Work Phone: [facility] 03-19-2022 08:06-0500 Systolic blood pressure 138 mm[Hg] Cas Isra PARLOR MAID.MANAGER WATER Work Phone: [facility] 11-20-2021 14:18-0400 Body temperature 97.9 [degF] Rodger Reyes MD Work Phone: [facility] 11-20-2021 14:18-0400 Diastolic blood pressure 65 mm[Hg] Rodger Reyes MD Work Phone: [facility] 11-20-2021 14:18-0400 Heart rate 64 /min Rodger Reyes MD Work Phone: [facility] 11-20-2021 14:18-0400 Respiratory rate 19 /min Rodger Reyes MD Work Phone: [facility] 11-20-2021 14:18-0400 SaO2% (BldA) [Mass fraction] 99 % Rodger Reyes MD Work Phone: [facility] 11-20-2021 14:18-0400 Systolic blood pressure 115 mm[Hg] Rodger Reyes MD Work Phone: [facility] 11-20-2021 11:20-0400 Body height 173 cm Rodger Reyes MD Work Phone: [facility] 11-20-2021 11:20-0400 Body mass index (BMI) [Percentile] Per age and sex 1.92 % Rodger Reyes MD Work Phone: [facility] 11-20-2021 11:20-0400 Body mass index (BMI) [Ratio] 17.51 kg/m2 Rodger Reyes MD Work Phone: [facility] 11-20-2021 11:20-0400 Body weight 52.4 kg Rodger Reyes MD Work Phone: [facility] 10-11-2021 15:39-0400 Body temperature 98.4 [degF] Rodger Reyes MD Work Phone: [facility] 10-11-2021 15:39-0400 Diastolic blood pressure 57 mm[Hg] Rodger Reyes MD Work Phone: [facility] 10-11-2021 15:39-0400 Heart rate 64 /min Rodger Reyes MD Work Phone: [facility] 10-11-2021 15:39-0400 Respiratory rate 18 /min Rodger Reyes MD Work Phone: [facility] 10-11-2021 15:39-0400 Systolic blood pressure 118 mm[Hg] Rodger Reyes MD Work Phone: [facility] 10-11-2021 10:00-0400 SaO2% (BldA) [Mass fraction] 98 % Rodger Reyes MD Work Phone: [facility] 10-10-2021 08:35-0400 Body height 172.7 cm Rodger Reyes MD Work Phone: [facility] 10-10-2021 08:35-0400 Body mass index (BMI) [Percentile] Per age and sex 1.11 % Rodger Reyes MD Work Phone: [facility] 10-10-2021 08:35-0400 Body mass index (BMI) [Ratio] 17.13 kg/m2 Rodger Reyes MD Work Phone: [facility] 10-10-2021 08:35-0400 Body weight 51.1 kg Rodger Reyes MD Work Phone: [facility] 07-23-2021 11:10-0400 Body temperature 97.7 [degF] Rodger Reyes MD Work Phone: [facility] 07-23-2021 11:10-0400 Diastolic blood pressure 81 mm[Hg] Rodger Reyes MD Work Phone: [facility] 07-23-2021 11:10-0400 Heart rate 54 /min Rodger Reyes MD Work Phone: [facility] 07-23-2021 11:10-0400 Respiratory rate 18 /min Rodger Reyes MD Work Phone: [facility] 07-23-2021 11:10-0400 SaO2% (BldA) [Mass fraction] 99 % Rodger Reyes MD Work Phone: [facility] 07-23-2021 11:10-0400 Systolic blood pressure 139 mm[Hg] Rodger Reyes MD Work Phone: [facility] 07-23-2021 07:40-0400 Body height 172 cm Rodger Reyes MD Work Phone: [facility] 07-23-2021 07:40-0400 Body mass index (BMI) [Percentile] Per age and sex 2.14 % Rodger Reyes MD Work Phone: [facility] 07-23-2021 07:40-0400 Body mass index (BMI) [Ratio] 17.41 kg/m2 Rodger Reyes MD Work Phone: [facility] 07-23-2021 07:40-0400 Body weight 51.5 kg Rodger Reyes MD Work Phone: [facility] 07-17-2021 12:30-0400 Heart rate 56 /min [facility] Work Phone: 07-17-2021 12:30-0400 SaO2% (BldA) [Mass fraction] 98 % [facility] Work Phone: 07-17-2021 09:48-0400 Diastolic blood pressure 77 mm[Hg] [facility] Work Phone: 07-17-2021 09:48-0400 Respiratory rate 16 /min [facility] Work Phone: 07-17-2021 09:48-0400 Systolic blood pressure 139 mm[Hg] [facility] Work Phone: 07-17-2021 07:17-0400 Body height 170.18 cm [facility] Work Phone: 07-17-2021 07:17-0400 Body mass index (BMI) [Ratio] 17.6 kg/m2 [facility] Work Phone: 07-17-2021 07:040 Body temperature 97.7 [degF] [facility] Work Phone: 07-17-2021 07: Body weight 51 kg [facility] Work Phone: Encounters Encounter Date Encounter Type Care Provider Facility Start: 12-13-2023 End: 12-13-2023 Emergency department patient visit Jorge Luis Hinojosa Facility:[facility] Start: 03-14-2023 End: 03-14-2023 ambulatory [facility] Facility:[facility] Start: 10-04-2022 End: 10-04-2022 Emergency department patient visit [facility] Work Phone: Start: 10-02-2022 End: 10-02-2022 ambulatory [facility] Facility:[facility] Start: 10-02-2022 End: 10-02-2022 Patient encounter procedure Cindy Velazquez PA-C Work Phone: [facility] Comment on above: Sore throat (Primary Dx); Acute otitis media, right Start: 06-27-2022 End: 06-27-2022 [facility] Start: 06-12-2022 End: 06-12-2022 Emergency department patient visit [facility] Start: 05-20-2022 End: 05-20-2022 ambulatory [facility] Facility:[facility] Start: 05-20-2022 End: 05-20-2022 Subsequent hospital visit by physician [facility] Work Phone: Radiology Comment on above: Bronchitis [J40] Start: 05-20-2022 End: 05-20-2022 Patient encounter procedure Cindy Velazquez PA-C Work Phone: [facility] Comment on above: Bronchitis (Primary Dx) Start: 03-19-2022 End: 03-19-2022 ambulatory [facility] Facility:[facility] Start: 03-19-2022 End: 03-19-2022 Patient encounter procedure Cas Dhaliwal JAYCOB Work Phone: [facility] Comment on above: Influenza-like illne ss (Primary Dx) Start: 01-01-2022 End: 01-02-2022 [facility] Start: 12-27-2021 End: 12-27-2021 ambulatory [facility] Start: 11-20-2021 End: 11-20-2021 [facility] Start: 11-20-2021 End: 11-20-2021 Subsequent hospital visit by physician Rodger Reyes MD Work Phone: [facility] Comment on above: Hydronephrosis with ureteropelvic junction (UPJ) obstruction (Primary Dx); Other hydronephrosis Start: 11-19-2021 End: 11-19-2021 [facility] Start: 10-10-2021 End: 10-11-2021 Evaluation and management of inpatient [facility] Start: 10-10-2021 End: 10-11-2021 Evaluation and management of inpatient Rodger Reyes MD Work Phone: [facility] Comment on above: Hydronephrosis with ureteropelvic junction (UPJ) obstruction (Primary Dx) Start: 10-07-2021 End: 10-07-2021 [facility] Start: 10-04-2021 End: 10-04-2021 [facility] Start: 08-06-2021 End: 08-07-2021 [facility] Start: 08-06-2021 End: 08-06-2021 Subsequent hospital visit by physician Rodger Reyes MD Work Phone: [facility] Comment on above: Elevated blood press ure reading without diagnosis of hypertension Start: 07-23-2021 End: 07-23-2021 [facility] Start: 07-23-2021 End: 07-23-2021 Subsequent hospital visit by physician Rodger Reyes MD Work Phone: [facility] Comment on above: Other hydronephrosis Start: 07-18-2021 End: 07-19-2021 ambulatory [facility] Start: 07-18-2021 End: 07-18-2021 ambulatory [facility] Start: 07-18-2021 End: 07-18-2021 Subsequent hospital visit by physician Sasha Sims MD Work Phone: [facility] Comment on above: Obstruction of kidne y Start: 07-17-2021 End: 07-17-2021 Emergency department patient visit [facility] Start: 07-15-2021 [facility] Start: 07-05-2021 End: 07-05-2021 ambulatory [facility] Start: 07-04-2021 End: 07-05-2021 ambulatory [facility] Start: 07-04-2021 End: 07-04-2021 Subsequent hospital visit by physician Sasha Sims MD Work Phone: [facility] [place] Comment on above: Hypertension, unspec ified type; UPJ (ureteropelvic junction) obstruction Start: 05-16-2009 Patient encounter status Wilian Dhaliwal APRN.MANAGER WATER Work Phone: [facility] Work Phone: Procedures Date Procedure Procedure Detail Performing Clinician Start: 10-02-2022 STREP A MOLECULAR (POC) Cindy AMBROCIO-C Work Phone: Start: 06-12-2022 SARS-CoV-2 & FLU Ant igen (Rapid) Start: 05-20-2022 Radiologic exam ches t 2 views Cindy AMBROCIO-C Work Phone: Start: 03-19-2022 COVID WITH FLUA+B, ROUTINE Cas Dhaliwal APRN.MANAGER WATER Work Phone: Start: 10-11-2021 Basic metabolic pane l calcium total Asya Mccullough RN Start: 10-11-2021 GFR/1.73 sq M.predic rosa among non-blacks MDRD (S/P/Bld) [Vol rate/Area] Rodger Reyes MD Work Phone: Start: 10-10-2021 End: 10-10-2021 LAPAROSCOPIC PYELOPLASTY Rodger Reyes MD Work Phone: Start: 08-06-2021 Renal function panel Santo Reyes MD Work Phone: Start: 07-23-2021 X-ray urinary tract exam with contrast material Rodger Reyes MD Work Phone: Start: 07-18-2021 Renal function panel John Sims MD Work Phone: Start: 07-17-2021 CT of head without contrast Start: 07-04-2021 End: 07-04-2021 Renal function panel Sasha Sims MD Work Phone: Start: 07-04-2021 CREATININE URINE RANDOM Sasha Sims MD Work Phone: Start: 07-04-2021 TOTAL PROTEIN URINE RANDOM Sasha Sims MD Work Phone: Plan of Treatment Date Care Activity Detail Author Start: 10-14-2025 Tetanus Diphtheria a nd Pertussis Vaccines (7 - Td or Tdap) Tetanus Diphtheria and Pertussis Vaccines (7 - Td or Tdap) [facility] Start: 10-14-2025 Urine microalbumin profile DTaP,Tdap,Td Vaccine (7 - Td or Tdap) [facility] Start: 11-22-2023 Covid-19 Vaccine ( season) Covid-19 Vaccine ( season) [facility] Start: 11-22-2023 Influenza vaccination Influenza Vacc ine (#1) [facility] Start: 11-21-2022 Influenza vaccination INFLUENZA (#1) [facility] Start: 03-23-2022 DEPRESSION ASSESSMENT DEPRESSION ASS ESSMENT [facility] Start: 12-27-2021 End: 12-27-2021 Patient encounter procedure 12/27/2021 Office Visit Urology Rodger Reyes MD [address] [facility] [address] [place], [place] [id number] [facility] Start: 12-07-2021 Anxiety Screening Anxiety Screening [facility] Start: 12-07-2021 [facility] Start: 12-07-2021 HEPATITIS C SCREENING HEPATITIS C [facility] Start: 12-07-2021 Hepatitis C screening Hepatitis C [facility] Start: 12-07-2021 HIV SCREENING HIV SCREENING [facility] Start: 12-07-2021 HIV screening HIV Screening [facility] Start: 11-21-2021 FLU (#1) FLU (#1) [facility] Start: 11-21-2021 FLU (Season Ended) FLU (Season Ended ) [facility] Start: 11-21-2021 Influenza vaccination INFLUENZA (#1) [facility] Start: 11-20-2021 End: 11-20-2021 CYSTOSCOPY WITH STENT REMOVAL CYSTOSCOPY WITH STENT REMOVAL Other hydronephrosis 11/20/2021 1:06 PM EDT [facility] Start: 10-10-2021 End: 10-10-2021 Admission to same day surgery center 10/10/2021 Surgery Rodger Reyes MD [address] [facility] [address] [place] [address] LAPAROSCOPIC PYELOPLASTY [facility] Comment on above: LAPAROSCOPIC PYELOPL ASTY Start: 10-10-2021 End: 10-10-2021 LAPAROSCOPIC PYELOPLASTY LAPAROSCOPIC PYELOPLASTY Hydronephrosis with ureteropelvic junction (UPJ) obstruction 10/10/2021 10:30 AM EDT [facility] Start: 10-10-2021 Subsequent hospital visit by physician 10/10/2021 Hospital Encounter Rodger Reyes MD [address] [place] [address] [facility] Start: 08-06-2021 End: 08-06-2021 Patient encounter procedure 08/06/2021 Office Visit Urology Rodger Reyes MD [address] [facility] [address] [place], [place] [id number] [facility] Start: 07-23-2021 End: 07-23-2021 Admission to same day surgery center 07/23/2021 Surgery Rodger Reyes MD [address] [facility] [address] [place] [address] RIGHT URETERAL STENT INSERTION [facility] Comment on above: RIGHT URETERAL STENT INSERTION Start: 07-23-2021 End: 07-23-2021 CYSTOSCOPY WITH STENT INSERTION CYSTOSCOPY WITH STENT INSERTION Other hydronephrosis 07/23/2021 9:15 AM EDT [facility] Start: 07-23-2021 Subsequent hospital visit by physician 07/23/2021 Hospital Encounter Rodger Reyes MD [address] [facility] [address] [place] [address] [facility] Start: 07-05-2021 End: 07-05-2021 Clinical Support 07/05/2021 Clinical Support [facility] [place] Start: 01-28-2021 COVID-19 (3 - Booste r for Pfizer series) COVID-19 (3 - Booster for Pfizer series) [facility] Start: 2020 Well Visit Well Visit [facility] Start: 11-21-2020 FLU (#1) FLU (#1) [facility] Start: 10-23-2020 COVID-19 VACCINE (3 - Booster for Pfizer series) COVID-19 VACCINE (3 - Booster for Pfizer series) [facility] Start: 10-23-2020 COVID-19 VACCINE (3 - Pfizer series) COVID-19 VACCINE (3 - Pfizer series) [facility] Start: 2019 MenB (1 of 2 - MenB 2-Dose Series) MenB (1 of 2 - MenB 2-Dose Series) [facility] Start: 2019 Meningococcal B Vaccine: Consider Based On Risk (1 of 2 - Patient Seeks Protection) Meningococcal B Vaccine: Consider Based On Risk (1 of 2 - Patient Seeks Protection) [facility] Start: 2019 MENINGOCOCCAL B: Consider based on risk (1 of 2 - Patient Seeks Protection) MENINGOCOCCAL B: Consider based on risk (1 of 2 - Patient Seeks Protection) [facility] Start: 2019 MENINGOCOCCAL CONJUG ATE (1 - 2-dose series) MENINGOCOCCAL CONJUGATE (1 - 2-dose series) [facility] Start: 12-07-2018 HPV Vaccine (1 - Mal e 3-dose series) HPV Vaccine (1 - Male 3-dose series) [facility] Start: 12-07-2017 PEDS TO ADULT TRANSITION ANNUAL ASSESSMENT PEDS TO ADULT TRANSITION ANNUAL ASSESSMENT [facility] Start: 2015 PEDS TO ADULT TRANSITION INITIAL DISCUSSION PEDS TO ADULT TRANSITION INITIAL DISCUSSION [facility] Start: 12-07-2014 HPV (1 - Male 2-dose series) HPV (1 - Male 2-dose series) [facility] Start: 12-07-2014 HPV VACCINE (1 - Mal e 2-dose series) HPV VACCINE (1 - Male 2-dose series) [facility] Start: 12-07-2014 Urine microalbumin profile DTAP,TDAP,TD (6 - Tdap) [facility] Start: 12-07-2013 MENINGOCOCCAL B: Consider based on risk (1 of 2 - Risk Bexsero 2-dose series) MENINGOCOCCAL B: Consider based on risk (1 of 2 - Risk Bexsero 2-dose series) [facility] Start: 12-07-2012 HPV VACCINE (1 - Mal e 2-dose series) HPV VACCINE (1 - Male 2-dose series) [facility] Bacteria identified in Urine by Culture [facility] Work Phone: Comment on above: Release Upon Orderin g for 1 Occurrences starting 07/23/2021 Bacteria identified in Urine by Culture [facility] Work Phone: Comment on above: Release Upon Orderin g for 1 Occurrences starting 11/20/2021 End: 07-04-2021 Cystatin C [facility] Work Phone: Comment on above: 1 Occurrences starti ng 07/04/2021 until 07/04/2021 CYSTOSCOPY WITH STEN T REMOVAL CYSTOSCOPY WITH STENT REMOVAL Other hydronephrosis [facility] OR Patient Education [facility] Work Phone: Patient referral [facility] Work Phone: End: 07-04-2021 Plasma Renin Activity [facility] Comment on above: 1 Occurrences starti ng 07/04/2021 until 07/04/2021 End: 08-06-2021 Plasma Renin Activity [facility] Work Phone: Comment on above: 1 Occurrences starti ng 08/06/2021 until 08/06/2021 End: 10-11-2021 Plasma Renin Activity [facility] Work Phone: Comment on above: Tomorrow AM for 1 Oc currences starting 10/11/2021 until 10/11/2021 End: 10-10-2021 Spmtry w/vc expiratory shabbir w/wo mxml vol vntj Incentive spirometry Respiratory Care Routine One Time for 1 Occurrences starting 10/10/2021 until 10/10/2021 [facility] Work Phone: Comment on above: One Time for 1 Occur rences starting 10/10/2021 until 10/10/2021 Surgical Pathology L ab Test [facility] Comment on above: Release Upon Orderin g for 1 Occurrences starting 10/10/2021 Immunizations Immunization Date Immunization Notes Care Provider [facility] 12-09-2019 meningococcal polysaccharide (groups A, C, Y and W-135) diphtheria toxoid conjugate vaccine (MCV4P) Sasha Sims MD Work Phone: [facility] 01-06-2019 influenza, injectabl e, quadrivalent, preservative free Sasha Sims MD Work Phone: [facility] 01-06-2019 influenza virus vacc ine, unspecified formulation [facility] Work Phone: [facility] 01-30-2018 influenza, injectabl e, quadrivalent, preservative free Sasha Sims MD Work Phone: [facility] 01-05-2016 influenza, injectabl e, quadrivalent, preservative free Sasha Sims MD Work Phone: [facility] 10-15-2015 meningococcal polysaccharide (groups A, C, Y and W-135) diphtheria toxoid conjugate vaccine (MCV4P) Sasha Sims MD Work Phone: [facility] 10-15-2015 tetanus toxoid, redu shade diphtheria toxoid, and acellular pertussis vaccine, adsorbed Sasha Sims MD Work Phone: [facility] 12-28-2014 influenza virus vacc ine, live, attenuated, for intranasal use Sasha Sims MD Work Phone: [facility] 12-28-2014 influenza, live, intranasal, quadrivalent Sasha Sims MD Work Phone: [facility] 01-17-2014 influenza virus vacc ine, live, attenuated, for intranasal use Sasha Sims MD Work Phone: [facility] 01-17-2014 influenza, live, intranasal, quadrivalent Sasha Sims MD Work Phone: [facility] 10-21-2013 hepatitis A vaccine, pediatric/adolescent dosage, 2 dose schedule Sasha Sims MD Work Phone: [facility] 01-04-2013 influenza, live, intranasal, quadrivalent Sasha Sims MD Work Phone: [facility] 10-22-2012 hepatitis A vaccine, pediatric/adolescent dosage, 2 dose schedule Sasha Sims MD Work Phone: [facility] 12-17-2011 influenza virus vacc ine, live, attenuated, for intranasal use Sasha Sims MD Work Phone: [facility] 12-10-2010 influenza virus vacc ine, live, attenuated, for intranasal use Sasha Sims MD Work Phone: [facility] 01-01-2010 influenza virus vacc ine, live, attenuated, for intranasal use Sasha Sims MD Work Phone: [facility] 01-01-2010 influenza virus vacc ine, unspecified formulation Sasha Sims MD Work Phone: [facility] 01-17-2009 novel influenza-H1N1 -09, all formulations Sasha Sims MD Work Phone: [facility] 01-17-2009 novel influenza-H1N1 -09, injectable Sasha Sims MD Work Phone: [facility] 01-17-2009 novel Influenza-H1N1 -09, live virus for nasal administration Sasha Sims MD Work Phone: [facility] 01-05-2009 influenza virus vacc ine, unspecified formulation Sasha Sims MD Work Phone: [facility] 09-08-2008 diphtheria, tetanus toxoids and acellular pertussis vaccine Sasha Sims MD Work Phone: [facility] 09-08-2008 diphtheria, tetanus toxoids and acellular pertussis vaccine, unspecified formulation Sasha Sims MD Work Phone: [facility] 09-08-2008 measles, mumps and rubella virus vaccine Sasha Sims MD Work Phone: [facility] 09-08-2008 poliovirus vaccine, inactivated Sasha Sims MD Work Phone: [facility] 09-08-2008 varicella virus vaccine Chandler Sims MD Work Phone: [facility] 01-12-2008 influenza virus vacc ine, live, attenuated, for intranasal use Sasha Sims MD Work Phone: [facility] 01-12-2008 influenza virus vacc ine, unspecified formulation Sasha Sims MD Work Phone: [facility] 01-26-2007 influenza virus vacc ine, unspecified formulation Sasha Sims MD Work Phone: [facility] 02-02-2006 influenza virus vacc ine, unspecified formulation Sasha Sims MD Work Phone: [facility] 06-06-2005 diphtheria, tetanus toxoids and acellular pertussis vaccine Sasha Sims MD Work Phone: [facility] 06-06-2005 diphtheria, tetanus toxoids and acellular pertussis vaccine, unspecified formulation Sasha Sims MD Work Phone: [facility] 06-06-2005 haemophilus influenz ae type b vaccine, HbOC conjugate Sasha Sims MD Work Phone: [facility] 06-06-2005 haemophilus influenz ae type b vaccine, PRP-T conjugate Sasha Sims MD Work Phone: [facility] 06-06-2005 pneumococcal conjuga te vaccine, 7 valent Sasha Sims MD Work Phone: [facility] 06-06-2005 pneumococcal polysaccharide vaccine, 23 valent Sasha Sims MD Work Phone: [facility] 12-20-2004 measles, mumps and rubella virus vaccine Sasha Sims MD Work Phone: [facility] 12-20-2004 varicella virus vaccine Chandler Sims MD Work Phone: [facility] 11-01-2004 diphtheria, tetanus toxoids and acellular pertussis vaccine Sasha Sims MD Work Phone: [facility] 11-01-2004 diphtheria, tetanus toxoids and acellular pertussis vaccine, unspecified formulation Sasha Sims MD Work Phone: [facility] 11-01-2004 haemophilus influenz ae type b vaccine, HbOC conjugate Sasha Sims MD Work Phone: [facility] 11-01-2004 haemophilus influenz ae type b vaccine, PRP-T conjugate Sasha Sims MD Work Phone: [facility] 11-01-2004 pneumococcal conjuga te vaccine, 7 valent Sasha Sims MD Work Phone: [facility] 11-01-2004 pneumococcal polysaccharide vaccine, 23 valent Sasha Sims MD Work Phone: [facility] 11-01-2004 poliovirus vaccine, inactivated Sasha Sims MD Work Phone: [facility] 07-24-2004 diphtheria, tetanus toxoids and acellular pertussis vaccine Sasha Sims MD Work Phone: [facility] 07-24-2004 diphtheria, tetanus toxoids and acellular pertussis vaccine, unspecified formulation Sasha Sims MD Work Phone: [facility] 07-24-2004 haemophilus influenz ae type b vaccine, HbOC conjugate Sasha Sims MD Work Phone: [facility] 07-24-2004 haemophilus influenz ae type b vaccine, PRP-T conjugate Sasha Sims MD Work Phone: [facility] 07-24-2004 hepatitis B vaccine, pediatric or pediatric/adolescent dosage Sasha Sims MD Work Phone: [facility] 07-24-2004 pneumococcal conjuga te vaccine, 7 valent Sasha Sims MD Work Phone: [facility] 07-24-2004 pneumococcal polysaccharide vaccine, 23 valent Sasha Sims MD Work Phone: [facility] 07-24-2004 poliovirus vaccine, inactivated Sasha Sims MD Work Phone: [facility] 03-08-2004 diphtheria, tetanus toxoids and acellular pertussis vaccine Sasha Sims MD Work Phone: [facility] 03-08-2004 diphtheria, tetanus toxoids and acellular pertussis vaccine, unspecified formulation Sasha Sims MD Work Phone: [facility] 03-08-2004 haemophilus influenz ae type b vaccine, HbOC conjugate Sasha Sims MD Work Phone: [facility] 03-08-2004 haemophilus influenz ae type b vaccine, PRP-T conjugate Sasha Sims MD Work Phone: [facility] 03-08-2004 hepatitis B vaccine, pediatric or pediatric/adolescent dosage Sasha Sims MD Work Phone: [facility] 03-08-2004 pneumococcal conjuga te vaccine, 7 valent Sasha Sims MD Work Phone: [facility] 03-08-2004 pneumococcal polysaccharide vaccine, 23 valent Sasha Sims MD Work Phone: [facility] 03-08-2004 poliovirus vaccine, inactivated Sasha Sims MD Work Phone: [facility] 2003 hepatitis B vaccine, pediatric or pediatric/adolescent dosage Sasha Sims MD Work Phone: [facility] Payers Date Payer Category Payer Self-pay [id number] 2022 Unknown [id number] 2022 Unknown [id number] 2014 Unknown [facility] [id number] 2014-Present [address] [place] [address] [id number] 2007 Medicaid [id number] 2007 Unknown [id number] 2003 Unknown [id number] 2003 Unknown [id number] 2003 Unknown [id number] [id number] 1971 Unknown [id number] [id number] 1971 Unknown [id number] 2.16.840.1.602309.3.579.2 1971 Unknown [id number] 2.16.840.1.346488.3.579.2 1971 Unknown [id number] 2.16.840.1.459674.3.579.2 1971 Unknown [id number] 2.16.840.1.199533.3.579.2 1971 Unknown [id number] 2.16.840.1.876258.3.579. 1971 Unknown [id number] 2.16.840.1.549748.3.579.2 1971 Unknown [id number] 2.16.840.1.641104.3.579.2 1971 Unknown [id number] 2.16.840.1.326638.3.579.2 1971 Unknown [id number] 2.16.840.1.424673.3.579.2 1971 Unknown [id number] 2.16.840.1.175702.3.579.2 1971 Unknown [id number] [id number] 1971 Unknown [id number] 2.16.840.1.239244.3.579.2.479 1971 Unknown [id number] [id number] 1971 Unknown [id number] [id number] Unknown [id number] Social History Date Type Detail Facility Start: 06-10-2017 End: 03-19-2022 Tobacco smoking status NHIS Never smoked tobacco [facility] Start: 06-10-2017 End: 03-19-2022 Tobacco use and exposure Smokeless tobacco non-user [facility] Start: 07-04-2021 End: 05-20-2022 Alcohol intake Not Asked [facility] Start: 2003 Sex Assigned At Not on file A [facility] Start: 06-24-2021 End: 11-20-2021 Exposure to SARS-CoV-2 (event) Not sure [facility] Start: 07-17-2021 End: 10-04-2022 Tobacco smoking status NYIS Unknown if ever smoked [facility] Start: 2003 Sex Assigned At Male [facility] Start: 02-26-2020 End: 08-06-2021 Cigarette pack-years [facility] Start: 11-20-2021 Alcohol intake Lifetime non-d jair (finding) [facility] Start: 11-20-2021 History SDOH Alcohol Frequency 1 [facility] Start: 02-26-2020 End: 10-02-2022 Tobacco use panel [facility] National Score (1-100), lower number is lower risk Not on file [facility] NEGATED: Highlighted rowStart: NINF History of tobacco use Passive smoker [facility] Medical Equipment Procedure Code Equipment Code Equipment Origin al Text Equipment Identifier Dates Stent Ureteral 4.8x24 [id number] Start: 07-23-2021 Stent Ureteral 6.0x24 [id number] FDA Start: 10-10-2021 Mental Status Date Assessment Result Facility 06-12-2022 Cognitive function Level Of Cons ciousness Awake;Alert;Appropriate [facility] Work Phone: 07-17-2021 Cognitive function Level Of Cons ciousness Awake;Alert;Appropriate;Follow s Commands [facility] Work Phone: Clinical Notes 07-04-2021 to 03-14-2023 Cindy Velazquez PA-C - 10/02/2022 5:54 PM EDTPatient Instructions Note Date & Type Note Facility 03-14-2023 Note HNO ID: [id number] Author: Lupe Morris APRN.[employer] Service: ? Author Type: Nurse Practitioner Type: Progress Notes Filed: 03/14/2023 8:46 AM Note Text: Subjective Sore Throat Associated symptoms include congestion, coughing and ear pain. Pertinent negatives include no shortness of breath. Yoanna Cueto is a 17 year old male who presents with sore throat for a few days, left ear feeling plugged for one day. Decreased hearing in left ear He had a fever at the onset of illness which has resolved. He has nasal congestion and occasional cough Taking ibuprofen and tylenol. Review of Systems Constitutional: Negative for chills and fever. HENT: Positive for congestion, ear pain, hearing loss and sore throat. Respiratory: Positive for cough. Negative for shortness of breath. Cardiovascular: Negative for chest pain. Musculoskeletal: Negative for myalgias. BP 138/82 Pulse 82 Temp 37.2 ?C (99 ?F) (Tympanic) Resp 16 Wt 60.5 kg (133 lb 6.4 oz) SpO2 96% PAST MEDICAL HISTORY Diagnosis Date Contact dermatitis and other eczema, due to unspecified cause PAST SURGICAL HISTORY Procedure Laterality Date MYRINGOTOMY ASPIRAND/EUSTACHIAN TUBE NFLTJ ANES 03/2004 Myringotomy/tubes TONSILLECTOMY PRIMARY/SECONDARY Tonsillectomy ALLERGIES Apricot, Augmentin [Amoxicillin-Pot Clavulanate], and Honey MEDICATIONS Xxbfprfgfdfrckn-Oqzohsyxi-RO (BROMFED DM) 2-30-10 mg/5 mL syrup Take 10 mL by mouth four times daily as needed. (Patient not taking: Reported on 10/02/2022) albuterol HFA (PROAIR HFA) 90 mcg/actuation inhaler Inhale 2 Puffs as instructed every 6 hours as needed. (Patient not taking: Reported on 03/14/2023) albuterol HFA (VENTOLIN HFA) 90 mcg/actuation inhaler Inhale 2 Puffs as instructed every 4 hours as needed for Wheezing/Shortness of Breath. (Patient not taking: Reported on 08/11/2017 ) cyproheptadine (PERIACTIN) 4 mg tablet (Patient not taking: Reported on 06/03/2021 ) epinephrine(EPIPEN JR 0.15 MG/0.3 ML (1:2,000) IM INJECTOR) use as directed for allergic reaction. Seek emergent medical care immediately after use. (Patient not taking: Reported on 06/03/2021) Ped Rhktgnlwhdrjp-Wc-Dtti (POLY-VITAMIN/FLUORIDE/IRON) 0.5-10 mg/mL ORAL Drop 1 ml once a day (Patient not taking: No sig reported) FAMILY HISTORY Problem Relation Age of Onset Diabetes Mother Asthma Brother None Father None Brother Social History Tobacco Use Smoking status: Never Smokeless tobacco: Never Objective Physical Exam Vitals and nursing note reviewed. Constitutional: Appearance: Normal appearance. HENT: Right Ear: Tympanic membrane, ear canal and external ear normal. Left Ear: Ear canal and external ear normal. There is impacted cerumen. Ears: Comments: Left ear: Cerumen impairs exam of clinically significant portions of the tympanic membrane or middle ear condition. Nose: Nose normal. Mouth/Throat: Pharynx: Uvula midline. No oropharyngeal exudate or posterior oropharyngeal erythema. Cardiovascular: Rate and Rhythm: Normal rate and regular rhythm. Heart sounds: Normal heart sounds. Pulmonary: Effort: Pulmonary effort is normal. No respiratory distress. Breath sounds: Normal breath sounds. No wheezing or rales. Musculoskeletal: Cervical back: Neck supple. Lymphadenopathy: Cervical: No cervical adenopathy. Skin: General: Skin is warm and dry. Findings: No erythema or rash. Neurological: Mental Status: He is alert. ASSESSMENT/PLAN: 1. Impacted cerumen of left ear - ICD9: 380.4, ICD10: H61.22 (primary diagnosis) - REMOVAL OF IMPACTED CERUMEN - INSTRUMENTATION - Cerumen removed via irrigation, patient tolerated procedure well. Post procedure left ear canal is clear and TM is well visualized with bony landmarks intact and erythema and bulging TM. 2. Sore throat - ICD9: 462, ICD10: J02.9 - suspect viral - Group A strep molecular testing negative - Discussed supportive care treatment with fluids, rest and analgesia. 3. Other acute nonsuppurative otitis media of left ear, recurrence not specified - ICD9: 381.00, ICD10: H65.192 - Will begin treatment with as per antibiotic as written, see orders - Supportive care with plenty of fluids, rest, and analgesia prn. - CEFDINIR 300 MG CAPSULE - Follow-up with your PCP in 3-5 days if symptoms have not improved or sooner if symptoms worsen - Discussed red flags and need for immediate medical evaluation if any occur. - Discussed supportive care treatment with fluids, rest and analgesia. - Discussed expected course of illness Lupe Morris APRN.[facility] 10-02-2022 Note HNO ID: [id number] Author: Cindy Velazquez PA-C Service: ? Author Type: Physician Advocacy Director Type: Progress Notes Filed: 10/02/2022 5:57 PM Note Text: This note was created using [employer]riter. Subjective Yoanna Cueto is a 16 year old male. HPI Patient presents with a chief complaint of sore throat and right ear pain. No fever. No cough or runny nose. Really just hurts on the right side of his throat. No diarrhea or vomiting. He has tried ibuprofen [id number]. Also tried cough drops. States some people at work have been sick. Review of Systems Constitutional: Negative. HENT: Positive for ear pain and sore throat. Negative for congestion, ear discharge, sinus pressure and sinus pain. Respiratory: Negative for cough. Cardiovascular: Negative. Gastrointestinal: Negative. Genitourinary: Negative. Musculoskeletal: Negative. All other systems reviewed and are negative. PAST MEDICAL HISTORY Diagnosis Date Contact dermatitis and other eczema, due to unspecified cause Current Outpatient Medications Medication Sig Dispense Refill albuterol HFA (PROAIR HFA) 90 mcg/actuation inhaler Inhale 2 Puffs as instructed every 6 hours as needed. 1 Each 0 cefdinir (OMNICEF) 300 mg capsule Take 1 capsule by mouth twice daily for 7 days. 14 capsule 0 Dfarxlxacjceaot-Rffasdrfj-AZ (BROMFED DM) 2-30-10 mg/5 mL syrup Take 10 mL by mouth four times daily as needed. (Patient not taking: Reported on 10/02/2022) 200 mL 0 albuterol HFA (VENTOLIN HFA) 90 mcg/actuation inhaler Inhale 2 Puffs as instructed every 4 hours as needed for Wheezing/Shortness of Breath. (Patient not taking: Reported on 08/11/2017 ) 1 Inhaler 0 cyproheptadine (PERIACTIN) 4 mg tablet (Patient not taking: Reported on 06/03/2021 ) epinephrine(EPIPEN JR 0.15 MG/0.3 ML (1:2,000) IM INJECTOR) use as directed for allergic reaction. Seek emergent medical care immediately after use. (Patient not taking: Reported on 06/03/2021) 1 1 Ped Vzpciquwrpcyd-Wi-Altn (POLY-VITAMIN/FLUORIDE/IRON) 0.5-10 mg/mL ORAL Drop 1 ml once a day (Patient not taking: No sig reported) 30 ml 11 No current facility-administered medications for this visit. PAST SURGICAL HISTORY Procedure Laterality Date MYRINGOTOMY ASPIRAND/EUSTACHIAN TUBE NFLTJ ANES 03/2004 Myringotomy/tubes TONSILLECTOMY PRIMARY/SECONDARY Tonsillectomy FAMILY HISTORY Problem Relation Age of Onset Diabetes Mother Asthma Brother None Father None Brother Social History Tobacco Use Smoking status: Never Smokeless tobacco: Never Objective BP 130/68 Pulse 76 Temp 37.1 ?C (98.7 ?F) (Tympanic) Resp 16 Wt 60.8 kg (134 lb) SpO2 96% Physical Exam Vitals reviewed. Constitutional: Appearance: Normal appearance. HENT: Head: Normocephalic and atraumatic. Right Ear: Ear canal and external ear normal. Left Ear: Tympanic membrane, ear canal and external ear normal. Ears: Comments: Suppurative right middle ear effusion Nose: Nose normal. Mouth/Throat: Mouth: Mucous membranes are moist. Pharynx: Pharyngeal swelling and posterior oropharyngeal erythema present. No oropharyngeal exudate or uvula swelling. Comments: Tonsils surgically absent Cardiovascular: Rate and Rhythm: Normal rate and regular rhythm. Heart sounds: Normal heart sounds. Pulmonary: Effort: Pulmonary effort is normal. Breath sounds: Normal breath sounds. Musculoskeletal: Cervical back: Neck supple. Lymphadenopathy: Cervical: Cervical adenopathy present. Skin: General: Skin is warm and dry. Neurological: General: No focal deficit present. Mental Status: He is alert. Assessment and Plan ASSESSMENT/PLAN: 1. Sore throat - ICD9: 462, ICD10: J02.9 (primary diagnosis) - Alere Strep Test neg, no culture pending - Discussed supportive care treatment with fluids, rest and analgesia. - The patient may also use warm salt water gargles, throat lozenges and/or OTC throat spray as needed. - The patient should follow up in 3-5 days if symptoms persist or worsen - STREP A MOLECULAR (POC) 2. Acute otitis media, right - ICD9: 382.9, ICD10: H66.91 - Will begin treatment with as per antibiotic as written, see orders- omnicef - Supportive care with plenty of fluids, rest, and analgesia prn. - Follow up in 3-5 days if symptoms persist or worsen. Cindy Velazquez PA-C [facility] 10-02-2022 History of Presen t illness Narrative This note was created using [employer]. Subjective Yoanna Cueto is a 16 year old male. HPI Patient presents with a chief complaint of sore throat and right ear pain. No fever. No cough or runny nose. Really just hurts on the right side of his throat. No diarrhea or vomiting. He has tried ibuprofen [id number]-ccw-fujddly. Also tried cough drops. States some people at work have been sick. Review of Systems Constitutional: Negative. HENT: Positive for ear pain and sore throat. Negative for congestion, ear discharge, sinus pressure and sinus pain. Respiratory: Negative for cough. Cardiovascular: Negative. Gastrointestinal: Negative. Genitourinary: Negative. Musculoskeletal: Negative. All other systems reviewed and are negative. PAST MEDICAL HISTORY Diagnosis Date Contact dermatitis and other eczema, due to unspecified cause Current Outpatient Medications Medication Sig Dispense Refill albuterol HFA (PROAIR HFA) 90 mcg/actuation inhaler Inhale 2 Puffs as instructed every 6 hours as needed. 1 Each 0 cefdinir (OMNICEF) 300 mg capsule Take 1 capsule by mouth twice daily for 7 days. 14 capsule 0 Qnekwqewcaguqkf-Mjfhsgiuj-KR (BROMFED DM) 2-30-10 mg/5 mL syrup Take 10 mL by mouth four times daily as needed. (Patient not taking: Reported on 10/02/2022) 200 mL 0 albuterol HFA (VENTOLIN HFA) 90 mcg/actuation inhaler Inhale 2 Puffs as instructed every 4 hours as needed for Wheezing/Shortness of Breath. (Patient not taking: Reported on 08/11/2017 ) 1 Inhaler 0 cyproheptadine (PERIACTIN) 4 mg tablet (Patient not taking: Reported on 06/03/2021 ) epinephrine(EPIPEN JR 0.15 MG/0.3 ML (1:2,000) IM INJECTOR) use as directed for allergic reaction. Seek emergent medical care immediately after use. (Patient not taking: Reported on 06/03/2021) 1 1 Ped Ulbdihhfvnenr-Hi-Ygbm (POLY-VITAMIN/FLUORIDE/IRON) 0.5-10 mg/mL ORAL Drop 1 ml once a day (Patient not taking: No sig reported) 30 ml 11 No current facility-administered medications for this visit. PAST SURGICAL HISTORY Procedure Laterality Date MYRINGOTOMY ASPIR&/EUSTACHIAN TUBE NFLTJ ANES 03/2004 Myringotomy/tubes TONSILLECTOMY PRIMARY/SECONDARY <AGE 12 09/2004 Tonsillectomy FAMILY HISTORY Problem Relation Age of Onset Diabetes Mother Asthma Brother None Father None Brother Social History Tobacco Use Smoking status: Never Smokeless tobacco: Never Objective BP 130/68 Pulse 76 Temp 37.1 C (98.7 F) (Tympanic) Resp 16 Wt 60.8 kg (134 lb) SpO2 96% Physical Exam Vitals reviewed. Constitutional: Appearance: Normal appearance. HENT: Head: Normocephalic and atraumatic. Right Ear: Ear canal and external ear normal. Left Ear: Tympanic membrane, ear canal and external ear normal. Ears: Comments: Suppurative right middle ear effusion Nose: Nose normal. Mouth/Throat: Mouth: Mucous membranes are moist. Pharynx: Pharyngeal swelling and posterior oropharyngeal erythema present. No oropharyngeal exudate or uvula swelling. Comments: Tonsils surgically absent Cardiovascular: Rate and Rhythm: Normal rate and regular rhythm. Heart sounds: Normal heart sounds. Pulmonary: Effort: Pulmonary effort is normal. Breath sounds: Normal breath sounds. Musculoskeletal: Cervical back: Neck supple. Lymphadenopathy: Cervical: Cervical adenopathy present. Skin: General: Skin is warm and dry. Neurological: General: No focal deficit present. Mental Status: He is alert. Assessment and Plan ASSESSMENT/PLAN: 1. Sore throat - ICD9: 462, ICD10: J02.9 (primary diagnosis) - Alere Strep Test neg, no culture pending - Discussed supportive care treatment with fluids, rest and analgesia. - The patient may also use warm salt water gargles, throat lozenges and/or OTC throat spray as needed. - The patient should follow up in 3-5 days if symptoms persist or worsen - STREP A MOLECULAR (POC) 2. Acute otitis media, right - ICD9: 382.9, ICD10: H66.91 - Will begin treatment with as per antibiotic as written, see orders- omnicef - Supportive care with plenty of fluids, rest, and analgesia prn. - Follow up in 3-5 days if symptoms persist or worsen. Cindy Velazquez PA-C documented in this encounter [facility] 10-02-2022 Instructions Cindy Velazquez PA-C - 10/02/2022 5:43 PM EDT Rotate ibuprofen 600-800mg every 6-8 hours and tylenol 500-1000mg every 4-6 hours (max 4000mg tylenol a day) Cepacol lozenges. documented in this encounter [facility] 06-12-2022 Discharge summary Note Date/Time June 12, 2022 1:32pm [facility] Medical Records Department [address] [place] [address] Emergency Department Summary 06/12/22 MR#: [id number] Acct: [id number] Name: YOANNA CUETO Rep #:[id number] : 2005 16 From: Jasper Gupta DO PCP: Dr. Katelyn Montague MD Status:DEP ER Location: ED HPI History of Present Illness Chief Complaint: General Illness Narrative Narrative: 16-year-old male presenting with fever, body aches, chills, nausea and vomiting. This all started this morning. Patient was given Phenergan which belonged to his mother. His vomiting did improve. He has been able to drink some fluids and his father states he drank a Gatorade. No abdominal pain. No chest pain. He does have a mild cough but is not short of breath. No significant medical history. PFSH PFSH Medical History Hypertension Non-smoker Home Medications chqumonxys-ijrcsavtjhlbm-dotakldd 50 mg-300 mg-40 mg capsule (Fioricet) 1 cap POQ8H PRN pain #14 caps 07/17/21 [Rx Last Taken Unknown] labetalol 100 mg tablet 100 mg PO BID 07/17/21 [History Last Taken Unknown] ondansetron 4 mg disintegrating tablet 4 mg PO Q8H PRN PRN Nausea #14 tabs 06/12/22 [Rx Last Taken Unknown] Allergy/AdvReac Type Severity Reaction Status Date / Time amoxicillin trihydrate Allergy Hives Verified 06/12/22 11:42 [From Augmentin] apricot Allergy Swelling Verified 06/12/22 11:42 potassium clavulanate Allergy Hives Verified 06/12/22 11:42 [From Augmentin] honey AdvReac Vomiting Verified 06/12/22 11:42 Social History Smoking Status: Never smoker ROS ROS ED Constitutional Constitutional ED: Reports chills and fever(s) Eyes Eyes: Denies change in vision or diplopia ENT ENT ED: Denies rhinorrhea or sore throat Cardiovascular Cardiovascular: Denies chest pain or palpitations Respiratory/Chest Respiratory/Chest: Reports cough; Denies dyspnea or dyspnea on exertion Gastrointestinal Gastrointestinal: Reports nausea and vomiting; Denies abdominal pain Genitourinary Genitourinary ED: Denies dysuria or hematuria Musculoskeletal Musculoskeletal: Reports myalgias; Denies arthralgias Integumentary Denies abscess or Abrasions EXAM Physical Exam Const Vital Signs: 06/12/22 11:41 06/12/22 12:30 Temperature 99.1 F Temperature Source Temporal Pulse Rate 103 H Respiratory Rate 18 Respiratory Pattern Normal Blood Pressure 119/74 Blood Pressure Mean 89 Pulse Ox 96 Oxygen Delivery Method Room Air Positive well nourished General Appearance ED: NAD HEENT Reports moist mucous membranes Eyes PERRL and EOMs intact bilaterally Neck no lymphadenopathy Chest Wall inspection of chest normal and palpation of chest normal Resp normal respiratory effort and clear to auscultation bilaterally Auscultation: Negative for rales, rhonchi or wheezes Cardio regular rate and regular rhythm MDM MDM MDM Narrative Medical decision making narrative: Patient presenting with low-grade fever, chills, body aches mild cough. He was tested for COVID and influenza. He tested positive for COVID. He does have some nausea and vomiting earlier. He was already able to drink after getting Phenergan. He is given Zofran here and p.o. challenged. Patient counseled needs to drink plenty water. He will be given a prescription for Zofran for home work note was provided. Impression: 1. COVID-19 2. Nausea/vomiting Discharge Plan Triage Chief Complaint: General Illness ED Provider: Jasper Gupta Dx/Rx/DC Orders Instructions: Coronavirus Disease 2019 (COVID-19): Caring for Yourself or Others Prescriptions: New ondansetron 4 mg tablet,disintegrating 4 mg PO Q8H PRN PRN (Reason: Nausea) Qty: 14 0RF No Action labetalol 100 mg tablet 100 mg PO BID zzlxdvgfad-sdweuopiqbzvt-xjzu [Fioricet] 50-300-40 mg capsule 1 cap PO Q8H PRN (Reason: pain) Qty: 14 0RF Stand Alone Forms: ED Work / School Excuse Primary Care Provider: Katelyn Montague Referrals: Katelyn Montague MD [Primary Care Provider] - Disposition Disposition: Home, Self Care What to do if you have Problems For any increased pain, shortness of breath, bleeding, nausea or vomiting, chestpain, or any unexpected problems, contact your Primary Care Provider. Call [facility] ([phone]) or report to the closest Emergency Room. Call 911 if necessary. 06/12/22 1401 <Electronically signed by Jasper Gupta DO> Cosigner Signature (if applicable): CC: Dr. Katelyn Montague MD ~ Signed [facility] Work Phone: [phone] 791-291802-28-2023 NoteHNO ID: [id number] Author: Cindy Velazquez PA-C Service: ? Author Type: Physician Advocacy Director Type: Progress Notes Filed: 05/20/2022 6:25 PM Note Text: This note was created using [employer]riter. Subjective Yoanna Cueto is a 16 year old male. HPI Patient presents with cough over the past 3 weeks. He has had some runny nose and congestion. No sinus pain or pressure he did try some TheraFlu yver-tdu-qokxyql. No chest pain or shortness of breath. He states the cough does keep him up at night. He did do 2 home COVID test which were negative. No diarrhea or vomiting. No history of asthma. He is not a smoker. Review of Systems Constitutional: Negative for fever. HENT: Positive for congestion and rhinorrhea. Negative for sinus pressure and sinus pain. Respiratory: Positive for cough. Negative for shortness of breath and wheezing. Cardiovascular: Negative. Gastrointestinal: Negative. Genitourinary: Negative. Musculoskeletal: Negative. All other systems reviewed and are negative. PAST MEDICAL HISTORY Diagnosis Date Contact dermatitis and other eczema, due to unspecified cause Current Outpatient Medications Medication Sig Dispense Refill predniSONE (DELTASONE) 20 mg tablet Take 2 tablets by mouth once daily for 5 days. 10 tablet 0 Mpjzpquchqyjqxe-Qjlsffdpj-TZ (BROMFED DM) 2-30-10 mg/5 mL syrup Take 10 mL by mouth four times daily as needed. 200 mL 0 albuterol HFA (PROAIR HFA) 90 mcg/actuation inhaler Inhale 2 Puffs as instructed every 6 hours as needed. 1 Each 0 albuterol HFA (VENTOLIN HFA) 90 mcg/actuation inhaler Inhale 2 Puffs as instructed every 4 hours as needed for Wheezing/Shortness of Breath. (Patient not taking: Reported on 08/11/2017 ) 1 Inhaler 0 cyproheptadine (PERIACTIN) 4 mg tablet (Patient not taking: Reported on 06/03/2021 ) epinephrine(EPIPEN JR 0.15 MG/0.3 ML (1:2,000) IM INJECTOR) use as directed for allergic reaction. Seek emergent medical care immediately after use. (Patient not taking: Reported on 06/03/2021) 1 1 Ped Uigotiljwevwq-Th-Ljah (POLY-VITAMIN/FLUORIDE/IRON) 0.5-10 mg/mL ORAL Drop 1 ml once a day (Patient not taking: No sig reported) 30 ml 11 No current facility-administered medications for this visit. PAST SURGICAL HISTORY Procedure Laterality Date MYRINGOTOMY ASPIRAND/EUSTACHIAN TUBE NFLTJ ANES 03/2004 Myringotomy/tubes TONSILLECTOMY PRIMARY/SECONDARY Tonsillectomy FAMILY HISTORY Problem Relation Age of Onset Diabetes Mother Asthma Brother None Father None Brother Social History Tobacco Use Smoking status: Never Smokeless tobacco: Never Objective BP 122/78 Pulse 60 Temp 36.6 ?C (97.9 ?F) (Tympanic) Resp 16 Wt 56.3 kg (124 lb 3.2 oz) SpO2 98% Physical Exam Vitals reviewed. Constitutional: Appearance: Normal appearance. HENT: Head: Normocephalic and atraumatic. Right Ear: Tympanic membrane, ear canal and external ear normal. Left Ear: Tympanic membrane, ear canal and external ear normal. Nose: Congestion present. Mouth/Throat: Mouth: Mucous membranes are moist. Pharynx: Oropharynx is clear. Cardiovascular: Rate and Rhythm: Normal rate and regular rhythm. Heart sounds: Normal heart sounds. Pulmonary: Effort: Pulmonary effort is normal. Breath sounds: Normal breath sounds. Comments: Harsh cough noted Musculoskeletal: Cervical back: Neck supple. Lymphadenopathy: Cervical: No cervical adenopathy. Skin: General: Skin is warm and dry. Neurological: Mental Status: He is alert. Assessment and Plan ASSESSMENT/PLAN: 1. Bronchitis - ICD9: 490, ICD10: J40 Chest x-ray clear. I feel he does have a viral bronchitis. Given Bromfed and prednisone as well as albuterol inhaler. Follow-up with PCP if not improving. - XR CHEST 2V FRONTAL/LAT CRISTÓBAL [facility]02-28-2023 NoteHNO ID: [id number] Author: Angle Haider RT(R) Service: Radiology Author Type: Technologist Type: Progress Notes Filed: 05/20/2022 6:16 PM Note Text: Radiology Service Progress Note PATIENT NAME: Yoanna Cueto DATE OF SERVICE: May 20, 2022 TIME: 6:10 PM PATIENT IDENTITY VERIFICATION COMPLETED USING TWO (2) IDENTIFIERS: Name and Date of confirmed by patient verbally. FALL SCREENING: Has the patient had 2 falls in the last year or 1 fall with injury or currently using an Ambulatory Assistive Device (Walker, Cane, Wheelchair, Crutches, etc.)? No PATIENT GENDER DATA: Male PATIENT RELEVANT IMPLANT DATA REVIEWED: Yes RADIOLOGY DEPARTMENT: General X-ray: Exam(s) Completed: Chest X-Ray PERIPHERAL IV DATA: Not applicable SIGNED BY: RT Abigail(R) May 20, 2022 6:10 [facility]02-28-2023 History of Present illness Narrative* Cindy Velazquez PA-C - 05/20/2022 6:23 PM EST This note was created using [employer]. Subjective Yoanna Cueto is a 16 year old male. HPI Patient presents with cough over the past 3 weeks. He has had some runny nose and congestion. No sinus pain or pressure he did try some TheraFlu elmm-kxh-zppodxv. No chest pain or shortness of breath. He states the cough does keep him up at night. He did do 2 home COVID test which were negative. No diarrhea or vomiting. No history of asthma. He is not a smoker. Review of Systems Constitutional: Negative for fever. HENT: Positive for congestion and rhinorrhea. Negative for sinus pressure and sinus pain. Respiratory: Positive for cough. Negative for shortness of breath and wheezing. Cardiovascular: Negative. Gastrointestinal: Negative. Genitourinary: Negative. Musculoskeletal: Negative. All other systems reviewed and are negative. PAST MEDICAL HISTORY Diagnosis Date Contact dermatitis and other eczema, due to unspecified cause Current Outpatient Medications Medication Sig Dispense Refill predniSONE (DELTASONE) 20 mg tablet Take 2 tablets by mouth once daily for 5 days. 10 tablet 0 Pfhwofdawklarhn-Tgfkzhsjf-WL (BROMFED DM) 2-30-10 mg/5 mL syrup Take 10 mL by mouth four times daily as needed. 200 mL 0 albuterol HFA (PROAIR HFA) 90 mcg/actuation inhaler Inhale 2 Puffs as instructed every 6 hours as needed. 1 Each 0 albuterol HFA (VENTOLIN HFA) 90 mcg/actuation inhaler Inhale 2 Puffs as instructed every 4 hours asneeded for Wheezing/Shortness of Breath. (Patient not taking: Reported on 08/11/2017 ) 1 Inhaler 0 cyproheptadine (PERIACTIN) 4 mg tablet (Patient not taking: Reported on 06/03/2021 ) epinephrine(EPIPEN JR 0.15 MG/0.3 ML (1:2,000) IM INJECTOR) use as directed for allergic reaction. Seek emergent medical care immediately after use. (Patient not taking: Reported on 06/03/2021) 1 1 Ped Sqqevjxvcmtcj-Bv-Nete (POLY-VITAMIN/FLUORIDE/IRON) 0.5-10 mg/mL ORAL Drop 1 ml once a day (Patient not taking: No sig reported) 30 ml 11 No current facility-administered medications for this visit. PAST SURGICAL HISTORY Procedure Laterality Date MYRINGOTOMY ASPIR&/EUSTACHIAN TUBE NFLTJ ANES 03/2004 Myringotomy/tubes TONSILLECTOMY PRIMARY/SECONDARY <AGE 12 09/2004 Tonsillectomy FAMILY HISTORY Problem Relation Age of Onset Diabetes Mother Asthma Brother None Father None Brother Social History Tobacco Use Smoking status: Never Smokeless tobacco: Never Objective BP 122/78 Pulse 60 Temp 36.6 C (97.9 F) (Tympanic) Resp 16 Wt 56.3 kg (124 lb 3.2 oz) SpO2 98% Physical Exam Vitals reviewed. Constitutional: Appearance: Normal appearance. HENT: Head: Normocephalic and atraumatic. Right Ear: Tympanic membrane, ear canal and external ear normal. Left Ear: Tympanic membrane, ear canal and external ear normal. Nose: Congestion present. Mouth/Throat: Mouth: Mucous membranes are moist. Pharynx: Oropharynx is clear. Cardiovascular: Rate and Rhythm: Normal rate and regular rhythm. Heart sounds: Normal heart sounds. Pulmonary: Effort: Pulmonary effort is normal. Breath sounds: Normal breath sounds. Comments: Harsh cough noted Musculoskeletal: Cervical back: Neck supple. Lymphadenopathy: Cervical: No cervical adenopathy. Skin: General: Skin is warm and dry. Neurological: Mental Status: He is alert. Assessment and Plan ASSESSMENT/PLAN: 1. Bronchitis - ICD9: 490, ICD10: J40 Chest x-ray clear. I feel he does have a viral bronchitis. Given Bromfed and prednisone as well as albuterol inhaler. Follow-up with PCP if not improving. - XR CHEST 2V FRONTAL/LAT Cindy Velazquez PA-C [facility] History of Present illness Narrative* Angle Haider RT(R) - 05/20/2022 6:10 PM EST Radiology Service Progress Note PATIENT NAME: Yoanna Cueto DATE OF SERVICE: May 20, 2022 TIME: 6:10 PM PATIENT IDENTITY VERIFICATION COMPLETED USING TWO (2) IDENTIFIERS: Name and Date of confirmedby patient verbally. FALL SCREENING: Has the patient had 2 falls in the last year or 1 fall with injury or currently using an Ambulatory Assistive Device (Walker, Cane, Wheelchair, Crutches, etc.)? No PATIENT GENDER DATA: Male PATIENT RELEVANT IMPLANT DATA REVIEWED: Yes RADIOLOGY DEPARTMENT: General X-ray: Exam(s) Completed: Chest X-Ray PERIPHERAL IV DATA: Not applicable SIGNED BY: RT Abigail(R) May 20, 2022 6:10 PM [facility] Influenza virus A and B RNA and SARS-CoV-2 (COVID-19) N gene panel CHUCK+probe (Resp)COVID 19 RESULT: SARS-CoV-2 (Agent of COVID-19) Not Detected by RT-PCR or equivalent method. rome [id number]_Eopqb [employer] ([employer])_EUA This test was developed and its performance characteristics determined by [facility] [place]. This test has been authorized by FDA under an Emergency Use Authorization (EUA). This test has been validated in accordance with the FDA's Guidance Document Policy for DiagnosticsTesting in Laboratories Certified to Perform High Complexity Testing under CLIA prior to Emergency use Authorization for Coronavirus Disease 2019 during the Public Health Emergency issued on May 21, 2019. Test performed by [facility], [facility] Doming[facility] [place], [address] [place] [address]. INFLUENZA A PCR: Negative for Influenza A by RT-PCR INFLUENZA B PCR: Negative for Influenza B by [facility] on above: Performed By: #### [id number] #### [facility] CLIA [id number] [address] [place], [place] [address]K [address] [id number] NoteHNO ID: [id number] Author: Cas Dhaliwal APRN.MANAGER WATER Service: ? Author Type: Nurse Practitioner Type: Progress Notes Filed: 03/19/2022 9:08 AM Note Text: Subjective HPI HPI Yoanna Cueto is a 16 year old male who presents today for CC of cough, fever, congestion, h/a, body aches. This started 2-3 days ago. Has tried otc medication for relief. Symptoms are worsened by nothing. Risk factors sick exposures at home and work. nonsmoker. .Patient presents with: Cough: Cough, congestion, DORADO and runny nose x 2 days PAST MEDICAL HISTORY Diagnosis Date Contact dermatitis and other eczema, due to unspecified cause PAST SURGICAL HISTORY Procedure Laterality Date MYRINGOTOMY ASPIRAND/EUSTACHIAN TUBE NFLTJ ANES 03/2004 Myringotomy/tubes TONSILLECTOMY PRIMARY/SECONDARY Tonsillectomy ALLERGIES Apricot, Augmentin [Amoxicillin-Pot Clavulanate], and Honey MEDICATIONS albuterol HFA (VENTOLIN HFA) 90 mcg/actuation inhaler Inhale 2 Puffs as instructed every 4 hours as needed for Wheezing/Shortness of Breath. (Patient not taking: Reported on 08/11/2017 ) cyproheptadine (PERIACTIN) 4 mg tablet (Patient not taking: Reported on 06/03/2021 ) epinephrine(EPIPEN JR 0.15 MG/0.3 ML (1:2,000) IM INJECTOR) use as directed for allergic reaction. Seek emergent medical care immediately after use. (Patient not taking: Reported on 06/03/2021) Ped Btrcckvjzotbv-Yl-Siea (POLY-VITAMIN/FLUORIDE/IRON) 0.5-10 mg/mL ORAL Drop 1 ml once a day (Patient not taking: No sig reported) FAMILY HISTORY Problem Relation Age of Onset Diabetes Mother Asthma Brother None Father None Brother Social History Tobacco Use Smoking status: Never Smokeless tobacco: Never Review of Systems Constitutional: Positive for chills, fever and malaise/fatigue. HENT: Positive for congestion. Negative for ear pain, nosebleeds and sore throat. Respiratory: Positive for cough. Negative for shortness of breath and wheezing. Cardiovascular: Negative for chest pain. Musculoskeletal: Negative for neck pain. Skin: Negative for itching and rash. Objective Blood pressure 138/82, pulse 96, temperature 37.4 ?C (99.3 ?F), temperature source Tympanic, resp. rate 16, weight 55.2 kg (121 lb 12.8 oz), SpO2 98 %. Physical Exam Constitutional: General: He is not in acute distress. Appearance: He is not toxic-appearing or diaphoretic. HENT: Head: Normocephalic and atraumatic. Cardiovascular: Rate and Rhythm: Normal rate and regular rhythm. Heart sounds: Normal heart sounds, S1 normal and S2 normal. Pulmonary: Effort: Pulmonary effort is normal. Breath sounds: Normal breath sounds. Lymphadenopathy: Cervical: No cervical adenopathy. Right cervical: No superficial cervical adenopathy. Left cervical: No superficial cervical adenopathy. Neurological: Mental Status: He is alert and oriented to person, place, and time. Gait: Gait is intact. ASSESSMENT/PLAN: 1. Influenza-like illness - ICD9: 487.1, ICD10: J11.1 -discussed expected course -discussed supportive care -discussed red flags and reasons for f/u -discussed contagiousness, reason/when close family members should f/u, and whom to avoid -f/u in 3-5 days if symptoms worsening - COVID WITH FLUA+B, ROUTINE Cas Dhaliwal APRN.[facility]PLake [facility]28[facility] Instructions* Patient Instructions* Cas Dhaliwal APRN.CNP - 03/19/2022 8:48 AM EST Images from the original note were not included. documented in this [facility]12-28-2022 History of Present illness Narrative* Cas Dhaliwal APRN.CNP - 03/19/2022 8:35 AM EST Subjective HPI HPI Yoanna Cueto is a 16 year old male who presents today for CC of cough, fever, congestion, h/a, body aches. This started 2-3 days ago. Has tried otc medication for relief. Symptoms are worsened by nothing. Risk factors sick exposures at home and work. nonsmoker. .Patient presents with: Cough: Cough, congestion, DORADO and runny nose x 2 days PAST MEDICAL HISTORY Diagnosis Date Contact dermatitis and other eczema, due to unspecified cause PAST SURGICAL HISTORY Procedure Laterality Date MYRINGOTOMY ASPIR&/EUSTACHIAN TUBE NFLTJ ANES 03/2004 Myringotomy/tubes TONSILLECTOMY PRIMARY/SECONDARY <AGE 12 09/2004 Tonsillectomy ALLERGIES Apricot, Augmentin [Amoxicillin-Pot Clavulanate], and Honey MEDICATIONS albuterol HFA (VENTOLIN HFA) 90 mcg/actuation inhaler Inhale 2 Puffs as instructed every 4 hours asneeded for Wheezing/Shortness of Breath. (Patient not taking: Reported on 08/11/2017 ) cyproheptadine (PERIACTIN) 4 mg tablet (Patient not taking: Reported on 06/03/2021 ) epinephrine(EPIPEN JR 0.15 MG/0.3 ML (1:2,000) IM INJECTOR) use as directed for allergic reaction. Seek emergent medical care immediately after use. (Patient not taking: Reported on 06/03/2021) Ped Icattinvjzdqa-Ah-Jcoh (POLY-VITAMIN/FLUORIDE/IRON) 0.5-10 mg/mL ORAL Drop 1 ml once a day (Patient not taking: No sig reported) FAMILY HISTORY Problem Relation Age of Onset Diabetes Mother Asthma Brother None Father None Brother Social History Tobacco Use Smoking status: Never Smokeless tobacco: Never Review of Systems Constitutional: Positive for chills, fever and malaise/fatigue. HENT: Positive for congestion. Negative for ear pain, nosebleeds and sore throat. Respiratory: Positive for cough. Negative for shortness of breath and wheezing. Cardiovascular: Negative for chest pain. Musculoskeletal: Negative for neck pain. Skin: Negative for itching and rash. Objective Blood pressure 138/82, pulse 96, temperature 37.4 C (99.3 F), temperature source Tympanic, resp. rate 16, weight 55.2 kg (121 lb 12.8 oz), SpO2 98 %. Physical Exam Constitutional: General: He is not in acute distress. Appearance: He is not toxic-appearing or diaphoretic. HENT: Head: Normocephalic and atraumatic. Cardiovascular: Rate and Rhythm: Normal rate and regular rhythm. Heart sounds: Normal heart sounds, S1 normal and S2 normal. Pulmonary: Effort: Pulmonary effort is normal. Breath sounds: Normal breath sounds. Lymphadenopathy: Cervical: No cervical adenopathy. Right cervical: No superficial cervical adenopathy. Left cervical: No superficial cervical adenopathy. Neurological: Mental Status: He is alert and oriented to person, place, and time. Gait: Gait is intact. ASSESSMENT/PLAN: 1. Influenza-like illness - ICD9: 487.1, ICD10: J11.1 -discussed expected course -discussed supportive care -discussed red flags and reasons for f/u -discussed contagiousness, reason/when close family members should f/u, and whom to avoid -f/u in 3-5 days if symptoms worsening - COVID WITH FLUA+B, ROUTINE Cas Dhaliwal APRN.MANAGER WATER documented [facility] this [facility] Procedure note* Op Note - Rodger Reyes MD - 11/20/2021 12:38 PM EDT OPERATIVE REPORT NAME: Yoanna Cueto UNIT#: [id number] [facility]#: [id number] DATE OF : 2005 DATE: 11/20/2021 SURGEON: RODGER REYES M.D. PRINTED [employer]ARD PANELS DEBURRER: Franco PREOPERATIVE DIAGNOSES: UPJ obstruction POSTOPERATIVE DIAGNOSES: same PROCEDURE(S): Cystoscopy with removal of ureteral stent ANESTHESIA: General PRE-OPERATIVE ANTIBIOTICS: Ancef ESTIMATED BLOOD LOSS: <5 mL. DRAINS: none SPECIMENS: urine culture FINDINGS: see below COMPLICATIONS: None acutely. INDICATION: Yoanna Cueto was seen and found to have a upj obstruction and underwent pyeloplasty with stent insertion. He presents today for stent removal following prior surgery.The risks and benefits of surgery and anesthesia were discussed with the family in clinic and re-reviewed on the day of surgery, and they elected to proceed. DESCRIPTION OF PROCEDURE: After informed consent had been obtained and the risks and benefits of the procedure explained to the patient's family, the patient was taken back to the operating room and placed in a lithotomy position. The child was placed under general anesthesia and then prepped and draped in the usual sterile fashion. Timeout was undertaken identifying patient, procedure, site, andsurgeon. The cystoscope was advanced into the urethra and into the bladder. The bladder was then drained andthe urine was sent for culture and sensitivities. Using a grasping forcep, the indwelling ureteral stent was removed intact easily. The bladder was then drained and the scope was withdrawn. The needle, instrument, and sponge counts were all determined to be correct prior leaving the operating room. DISPOSITION: The patient will be discharged home once stable from anesthesia and will follow up with me in 1 month. Rodger Reyes M.D. [facility]08-31-2022 Miscellaneous Notes* Op Note - Rodger Reyes MD - 11/20/2021 12:38 PM EDT OPERATIVE REPORT NAME: Yoanna Cueot UNIT#: [id number] [facility]#: [id number] DATE OF : 2005 DATE: 11/20/2021 SURGEON: RODGER REYES M.D. PRINTED [employer] BOARD PANELS DEBURRER: Franco PREOPERATIVE DIAGNOSES: UPJ obstruction POSTOPERATIVE DIAGNOSES: same PROCEDURE(S): Cystoscopy with removal of ureteral stent ANESTHESIA: General PRE-OPERATIVE ANTIBIOTICS: Ancef ESTIMATED BLOOD LOSS: <5 mL. DRAINS: none SPECIMENS: urine culture FINDINGS: see below COMPLICATIONS: None acutely. INDICATION: Yoanna Cueto was seen and found to have a upj obstruction and underwent pyeloplasty with stent insertion. He presents today for stent removal following prior surgery.The risks and benefits of surgery and anesthesia were discussed with the family in clinic and re-reviewed on the day of surgery, and they elected to proceed. DESCRIPTION OF PROCEDURE: After informed consent had been obtained and the risks and benefits of the procedure explained to the patient's family, the patient was taken back to the operating room and placed in a lithotomy position. The child was placed under general anesthesia and then prepped and draped in the usual sterile fashion. Timeout was undertaken identifying patient, procedure, site, andsurgeon. The cystoscope was advanced into the urethra and into the bladder. The bladder was then drained andthe urine was sent for culture and sensitivities. Using a grasping forcep, the indwelling ureteral stent was removed intact easily. The bladder was then drained and the scope was withdrawn. The needle, instrument, and sponge counts were all determined to be correct prior leaving the operating room. DISPOSITION: The patient will be discharged home once stable from anesthesia and will follow up with me in 1 month. Rodger Reyes M.D. * Plan of Care - Mary Jerez RN - 11/20/2021 12:33 PM EDT Problem: Anxiety, Patient/Family Goal: Effective coping Outcome: Ongoing Problem: Falls, Risk of Goal: Absence of falls Outcome: Ongoing Goal: Absence of physical injury Outcome: Ongoing Problem: Adverse Surgical Event, Risk of Goal: Absence of injury Outcome: Ongoing [facility] Plan of care note* Plan of Care - Mary Jerez RN - 11/20/2021 12:33 PM EDT Problem: Anxiety, Patient/Family Goal: Effective coping Outcome: Ongoing Problem: Falls, Risk of Goal: Absence of falls Outcome: Ongoing Goal: Absence of physical injury Outcome: Ongoing Problem: Adverse Surgical Event, Risk of Goal: Absence of injury Outcome: Ongoing [facility]08-31-2022 Attending History and physical note* Morgan Gamez MD - 11/20/2021 11:31 AM EDT Interval H&P No changes in health per patient and mom. No fevers, cough, vomiting, rash. Regular rate and rhythm. Lungs clear to auscultation bilaterally. Right hand marked OR with Dr. Amy Gamez MD PGY-4 11:31 AM Source Note - BobbyscottJeff tongeMORELIA-MANAGER WATER - 11/19/2021 10:45 AM EDT Yoanna Cueto is here for follow up at the request of Katelyn Montague MD for: Fluid In Kidney History of Presenting Problem: History provided by mom and Yoanna Had right UPJ obstruction. Status post pyeloplasty. Having stent out tomorrow. Voiding well. As long as he stays hydrated, does not have dysuria. No hematuria. Stent is uncomfortable. No flank pain or abdominal pain. Here for ultrasound. Past Medical History: Past Medical History: Diagnosis Date Hydronephrosis Past Surgical History: Procedure Laterality Date CIRCUMCISION PYELOPLASTY Right 10/10/2021 LAPAROSCOPIC PYELOPLASTY performed by Rodger Reyes MD at [facility] OR TONSILLECTOMY URETER STENT PLACEMENT N/A 07/23/2021 RIGHT URETERAL STENT INSERTION performed by Rodger Reyes MD at [facility] OR Allergies: Allergies Allergen Reactions Amoxicillin Hives Apricot Flavor Swelling Augmentin [Amoxicillin-Pot Clavulanate] Hives Clavulanic Acid Hives Honey Nausea And Vomiting Honey Bee Treatment [Bee Venom] Nausea And Vomiting Honey only/not the bee venom Medications: No outpatient encounter medications on file as of 11/19/2021. No facility-administered encounter medications on file as of 11/19/2021. Family Medical History: Family History Problem Relation Age of Onset Diabetes Mother High Cholesterol Mother Hypertension Father Allergies Brother seasonal allergies No known problems Brother [place] Before 50 Paternal Grandfather Social History: Social History Socioeconomic History Marital status: Single Spouse name: Not on file Number of children: Not on file Years of education: Not on file Highest education level: Not on file Occupational History Not on file Tobacco Use Smoking status: Never Passive exposure: Never Smokeless tobacco: Never Substance and Sexual Activity Alcohol use: Not on file Drug use: Not on file Sexual activity: Not on file Other Topics Concern Not on file Social History Narrative Not on file Additional History Is the patient on a special diet? No Age at toilet training? 1 yrs Per parents, immunizations are up to date. Yes Patient lives with? Parents Factors which may affect learning None Review of Systems: Constitutional: negative Eyes: negative Ears, nose, mouth, throat, and face: negative Respiratory: negative Cardiovascular: negative Gastrointestinal: negative Integument/breast: negative Hematologic/lymphatic: negative Musculoskeletal:negative Allergic/Immunologic: negative No fever or cough today. Physical Examination: Vitals: 11/19/21 1040 Weight: 52.4 kg Height: 172.7 cm General: Well appearing Eyes: Conjunctivae normal ENT: Ears normal, Resp: Normal effort, no wheezing Heart: no cyanosis Lymphatic: No obvious lymphadenopathy Abdomen: Non-tender, no masses Musculoskeletal: Normocephalic head, anticipated range of motion Neurologic: grossly expected sensation and strength Skin: good color, warm and dry : bladder soft Laboratory Testing: No results found for this visit on 11/19/21. Results for orders placed or performed during the hospital encounter of 10/10/21 Surgical Pathology Lab Test Result Value Ref Range Surgical Pathology Test SEE BELOW NA Basic Metabolic Panel Result Value Ref Range Sodium 141 133 - 145 mmol/L Potassium 4.1 3.3 - 5.1 mmol/L Chloride 104 96 - 108 mmol/L Carbon Dioxide 27.2 22.0 - 29.0 mmol/L BUN 12 4 - 19 mg/dL Glucose 83 70 - 99 mg/dL Creatinine 0.87 0.70 - 1.20 mg/dL Calcium 9.1 7.6 - 11.0 mg/dL Plasma Renin Activity Result Value Ref Range Renin Activity, Plasma 0.8 ng/mL/h eGFR Result Value Ref Range eGFR 81.98 NA Lab Results Component Value Date CREATININE 0.87 10/11/2021 BUN 12 10/11/2021 NA 141 10/11/2021 K 4.1 10/11/2021 CL 104 10/11/2021 CO2 27.2 10/11/2021 Imaging: Renal/Bladder Ultrasound Bladder Post Void Residual: n/a cc Hydroureter: No Bladder Debris: No Transverse Rectal Diameter: Other Findings: stent in bladder Normal Central Pelvis: Yes Kidneys Right Kidney Left Kidney Length: 10.7 Length: 10.7 Parenchyma: Normal Parenchyma: Normal Grade of HydronephrosisNone Grade of HydronephrosisNone AP diameter of pelvis AP diameter of pelvis Assessment & Plan: Yoanna was seen today for fluid in kidney. Diagnoses and all orders for this visit: Hydronephrosis with ureteropelvic junction (UPJ) obstruction - Kidney/Bladder Ultrasound Scheduled for surgery for stent removal tomorrow Follow up one month after stent removal CHASTITY Salinas November 19, 2021 [facility]08-31-2022 History and physical note* Morgan Gamez MD - 11/20/2021 11:31 AM EDT Interval H&P No changes in health per patient and mom. No fevers, cough, vomiting, rash. Regular rate and rhythm. Lungs clear to auscultation bilaterally. Right hand marked OR with Dr. Amy Gamez MD PGY-4 11:31 AM Source Note - Kasey Hu APRN-CNP - 11/19/2021 10:45 AM EDT Yoanna Cueto is here for follow up at the request of Katelyn Montague MD for: Fluid In Kidney History of Presenting Problem: History provided by mom and Yoanna Had right UPJ obstruction. Status post pyeloplasty. Having stent out tomorrow. Voiding well. As long as he stays hydrated, does not have dysuria. No hematuria. Stent is uncomfortable. No flank pain or abdominal pain. Here for ultrasound. Past Medical History: Past Medical History: Diagnosis Date Hydronephrosis Past Surgical History: Procedure Laterality Date CIRCUMCISION PYELOPLASTY Right 10/10/2021 LAPAROSCOPIC PYELOPLASTY performed by Rodger Reyes MD at [facility] OR TONSILLECTOMY URETER STENT PLACEMENT N/A 07/23/2021 RIGHT URETERAL STENT INSERTION performed by Rodger Reyes MD at [facility] OR Allergies: Allergies Allergen Reactions Amoxicillin Hives Apricot Flavor Swelling Augmentin [Amoxicillin-Pot Clavulanate] Hives Clavulanic Acid Hives Honey Nausea And Vomiting Honey Bee Treatment [Bee Venom] Nausea And Vomiting Honey only/not the bee venom Medications: No outpatient encounter medications on file as of 11/19/2021. No facility-administered encounter medications on file as of 11/19/2021. Family Medical History: Family History Problem Relation Age of Onset Diabetes Mother High Cholesterol Mother Hypertension Father Allergies Brother seasonal allergies No known problems Brother [place] Before 50 Paternal Grandfather Social History: Social History Socioeconomic History Marital status: Single Spouse name: Not on file Number of children: Not on file Years of education: Not on file Highest education level: Not on file Occupational History Not on file Tobacco Use Smoking status: Never Passive exposure: Never Smokeless tobacco: Never Substance and Sexual Activity Alcohol use: Not on file Drug use: Not on file Sexual activity: Not on file Other Topics Concern Not on file Social History Narrative Not on file Additional History Is the patient on a special diet? No Age at toilet training? 1 yrs Per parents, immunizations are up to date. Yes Patient lives with? Parents Factors which may affect learning None Review of Systems: Constitutional: negative Eyes: negative Ears, nose, mouth, throat, and face: negative Respiratory: negative Cardiovascular: negative Gastrointestinal: negative Integument/breast: negative Hematologic/lymphatic: negative Musculoskeletal:negative Allergic/Immunologic: negative No fever or cough today. Physical Examination: Vitals: 11/19/21 1040 Weight: 52.4 kg Height: 172.7 cm General: Well appearing Eyes: Conjunctivae normal ENT: Ears normal, Resp: Normal effort, no wheezing Heart: no cyanosis Lymphatic: No obvious lymphadenopathy Abdomen: Non-tender, no masses Musculoskeletal: Normocephalic head, anticipated range of motion Neurologic: grossly expected sensation and strength Skin: good color, warm and dry : bladder soft Laboratory Testing: No results found for this visit on 11/19/21. Results for orders placed or performed during the hospital encounter of 10/10/21 Surgical Pathology Lab Test Result Value Ref Range Surgical Pathology Test SEE BELOW NA Basic Metabolic Panel Result Value Ref Range Sodium 141 133 - 145 mmol/L Potassium 4.1 3.3 - 5.1 mmol/L Chloride 104 96 - 108 mmol/L Carbon Dioxide 27.2 22.0 - 29.0 mmol/L BUN 12 4 - 19 mg/dL Glucose 83 70 - 99 mg/dL Creatinine 0.87 0.70 - 1.20 mg/dL Calcium 9.1 7.6 - 11.0 mg/dL Plasma Renin Activity Result Value Ref Range Renin Activity, Plasma 0.8 ng/mL/h eGFR Result Value Ref Range eGFR 81.98 NA Lab Results Component Value Date CREATININE 0.87 10/11/2021 BUN 12 10/11/2021 NA 141 10/11/2021 K 4.1 10/11/2021 CL 104 10/11/2021 CO2 27.2 10/11/2021 Imaging: Renal/Bladder Ultrasound Bladder Post Void Residual: n/a cc Hydroureter: No Bladder Debris: No Transverse Rectal Diameter: Other Findings: stent in bladder Normal Central Pelvis: Yes Kidneys Right Kidney Left Kidney Length: 10.7 Length: 10.7 Parenchyma: Normal Parenchyma: Normal Grade of HydronephrosisNone Grade of HydronephrosisNone AP diameter of pelvis AP diameter of pelvis Assessment & Plan: Yoanna was seen today for fluid in kidney. Diagnoses and all orders for this visit: Hydronephrosis with ureteropelvic junction (UPJ) obstruction - Kidney/Bladder Ultrasound Scheduled for surgery for stent removal tomorrow Follow up one month after stent removal CHASTITY Salinas November 19, 2021 [facility] Progress note* Case Management - Phyllis Figueroa RN - 10/11/2021 1:43 PM EDT Assessment/Plan of Care Reviewed Are there Case Management needs identified at this time? No needs at this time. CM following treatment plan for any home going needs. [facility]07-[facility]-2022 Miscellaneous Notes* Case Management - Phyllis Figueroa RN - 10/11/2021 1:43 PM EDT Assessment/Plan of Care Reviewed Are there Case Management needs identified at this time? No needs at this time. CM following treatment plan for any home going needs. * Plan of Care - Reina Sofia RN - 10/11/2021 4:57 AM EDT Problem: Anxiety, Patient/Family Goal: Effective coping Outcome: Ongoing Problem: Adverse Surgical Event, Risk of Goal: Absence of injury Outcome: Ongoing Problem: Transition Readiness Goal: Knowledge of discharge instructions Outcome: Ongoing Goal: Able to safely transition to next level of care Outcome: Ongoing Problem: Falls, Risk of Goal: Absence of falls Outcome: Ongoing Goal: Absence of physical injury Outcome: Ongoing * Ancillary Progress Note - Toma Awan CCLS - 10/10/2021 10:04 AM EDT Child Life Periop Note Patient Name: Yoanna Cueto Date of : 2005 Date of Visit: 10/10/2021 Visit: Time Spent (15 minute units): Less than 15 minutes Introduced self and services to: Patient;Mother;Father Surgery for: Urology Assessment: Developmental Level: Within appropriate developmental parameters Affect/Behavior: Amiable;Cooperative;Displaying/Expressing appropriate anxiety Listening/Attention: Appropriate for developmental age;Attentive;Interactive Caregiver/Family: Present;Supportive;Engaged Identified/Verbalized concerns: Anxiety appropriate to circumstance;Prefers intravenous induction;Recovery/Rehabilitation;Pain Interventions: Emotional Support: Encouraged expression of concerns and feelings;Reinforcement of understanding ofdiagnosis Provided developmentally appropriate psychosocial preparation to patient and family including:: Didactic encounter/information;Review/reinforce information due to familiarity with surgical experience Outcomes: Patient/Family demonstrates: Appropriate understanding of perioperative events;Increased coping andadjustment;Zuleyka by: Support from parent caregiver;Zuleyka by: Support from staff;Zuleyka by: Use of therapeutic intervention Plan: Psychosocial Plan: Continue to provide ongoing support and services as needed;Provide post-op follow up and support REBECCA Germain * Op Note - Rodger Reyes MD - 10/10/2021 10:04 AM EDT OPERATIVE REPORT NAME: Yoanna Cueto UNIT#: [id number] [facility]#: [id number] DATE OF : 2005 DATE: 10/10/2021 SURGEON: RODGER REYES M.D. PRINTED [employer] BOARD PANELS DEBURRER: Franco PREOPERATIVE DIAGNOSES: Right upj obstruction Hypertenstion hydronephrosis POSTOPERATIVE DIAGNOSES: Same PROCEDURE(S): Right Laparoscopic Pyeloplasty Revision of renal pelvis ANESTHESIA: General PRE-OPERATIVE ANTIBIOTICS: Ancef ESTIMATED BLOOD LOSS: 10 mL. DRAINS: VIRY from RLQ port sight, 14 Djiboutian Mcmahan, 6 x 24 JJ stent SPECIMENS: none FINDINGS: crossing vessel COMPLICATIONS: None acutely. INDICATION: Yoanna Cueto was seen and found to have a right upj obstruction with hypertension. After a discussion of all the options, the patient's family wished to proceed with operative correction. The risks and benefits of surgery and anesthesia were discussed with the family in clinic and re-reviewed on the day of surgery, and they elected to proceed. DESCRIPTION OF PROCEDURE: After informed consent had been obtained and the risks and benefits of the procedure explained to the patient's family, the patient was taken back to the operating room and placed in a modified lateral position. The child was placed under general anesthesia and then prepped and draped in the usual sterile fashion. Timeout was undertaken identifying patient, procedure, site, and surgeon. The bladder was drained with a 14 Djiboutian Mcmahan which was ultimately left in the patient at the end the case. Following this a right-sided semilunar umbilical incision was made with a knife and electrocautery. The Veress needle was placed in the peritoneal cavity. Water drop test confirmed proper position. Pneumoperitoneum established at a pressure of 15 mmHg. Following this 2 additional ports were placed under direct vision in the right lower quadrant and approximately 1 handbreadth above the umbilicus in the midline. After the ports were successfully placed the colon was carefully reflected off of the abdominal wall by incising the white line of Toldt with the harmonic scalpel. After the co mercy was reflected the inferior pole of the kidney was identified. Further dissection medially identified a crossing vein and artery over an inflamed renal pelvis. The renal pelvis was carefully dissected away from the crossing vessels and surrounding tissue with the harmonic and in the laparoscopichook with cautery. After the renal pelvis was carefully dissected away from the crossing vessels, the ureteropelvic junction was transected with a pair of laparoscopic scissors. The proximal ureter was spatulated for approximately 1-1/2 to 2 cm. The renal pelvis was then placed on the anterior surface of the vessels. It was noted to be quite thick and inflamed. Therefore the renal pelvis was revised by excising the redundant thickened renal pelvis until normal tissue was seen more proximally. After the renal pelvis was excised attention was turned towards the pyeloplasty. Using 6-0 Vicryl, the posterior wall of the spatulated ureter was anastomosed to the posterior wallof the renal pelvis in a tension-free manner. The ureter and its lumen were identified by placing a5 Djiboutian Pollick catheter in the ureter after removing the Mcmahan catheter. After the anastomosis ofthe posterior wall was complete, the Pollick catheter was exchanged for a 6 Djiboutian by 24 cm double-J ureteral stent which was placed over a 0.032 Glidewire. The proximal loop was then positioned intothe renal pelvis and the distal loop was noted to be in the bladder after cystoscope was placed into the bladder to confirm this. The cystoscope was removed and the 14 Djiboutian Mcmahan catheter was replaced with 10 cc in the balloon. The anterior wall of the ureteropelvic junction was now anastomosed with a additional 6-0 Vicryl in a tension-free manner. Renal pelvis was felt to be watertight dependent and funnel-shaped. The pneumoperitoneum was turned down to a pressure of 5 and hemostasis was determined to be adequate. A 10 Djiboutian round James-Nuñez drain was then brought through the right lower quadrant and placed over the pyeloplasty. The port was removed and the VIRY drain was sewn securelyat the skin with 4-0 nylon. The insufflation was released and the remaining ports were removed. Allof the midline ports were closed with 3-0 PDS in the fascia and subcuticular 5-0 Monocryl. Skin glue was also applied. It should also be noted that a fourth port was placed just below the xiphoid when the liver was interfering with dissection of the renal pelvis. The liver was gently retracted with a locking graspingforcep. The area was inspected prior to removing the port was free of any bleeding and the liver was free of any injury. The needle, instrument, and sponge counts were all determined to be correct prior leaving the operating room. DISPOSITION: The patient will be discharged home once stable from anesthesia and will follow up with me in 1 month for ultrasound prior to stent removal. Rodger Reyes M.D. documented in this [facility]07-[facility] History of Present illness Narrative* Paco Joe MD - 10/11/2021 7:32 AM EDT NAME: Yoanna Cueto DATE: 10/11/2021 HOSPITAL DAY: Hospital Day: 2 SUBJECTIVE: Had some nausea and dry heaving yesterday afternoon requiring a second line anti-emetic Having mild pain on the right side Has not been out of bed Not passing gas yet Feels better this morning without nausea, feeling hungry Accompanied by mom OBJECTIVE: VITALS: BP 114/52 Pulse 63 Temp 36.9 C (98.4 F) Resp 15 Ht 172.7 cm Wt 51.1 kg SpO2 96% BMI 17.13 kg/m I/O: Intake/Output Summary (Last 24 hours) at 10/11/2021 0732 Last data filed at 10/11/2021 0600 Gross per 24 hour Intake 2796.91 ml Output 1825 ml Net 971.91 ml No intake/output data recorded. General: Alert, well appearing, resting comfortably in bed Eyes: Extraocular movements intact ENT: no nasal discharge Resp: Normal effort, no wheezing Heart: no cyanosis Abdomen: Soft, nondistended, moderate ttp on right side, incisions c/d/I w/ glue in place, VIRY drainwith small amount of SS drainage Musculoskeletal: Normocephalic head, no weakness Skin: Warm and dry : mild R cva ttp, catheter in place draining clear yellow urine DIAGNOSTIC STUDIES REVIEWED: BMP: [ CBC: Invalid input(s): CORRWBC Blood culture: No results found for: BLOODCULTURE Urine culture: Urine Culture Date Value Ref Range Status 07/23/2021 No growth. Final ASSESSMENT/PLAN: Yoanna is a 15 y.o. male with history of symptomatic R UPJ obstruction, s/p R laparoscopic pyeloplasty 10/10 - regular diet - encourage ambulation - incentive spirometry - labs need collected this morning, will follow up with nursing staff - pain/nausea control - maintain mcmahan catheter to gravity drainage, likely removal later this morning - maintain VIRY drain to bulb suction, likely removal prior to discharge - page resident stonecutter assistant with questions or concerns Anticipate discharge:potentially later today Morgan Gamez MD 10/11/2021 I personally discussed vaughan portions of the history and physical examination of this patient and discussed the management plan with the resident. I reviewed the resident's note and agree with the documented findings and plan of care, except as noted above. Discussed with patient. Paco Joe MD documented in this [facility] Plan of care note* Plan of Care - Reina Soifa RN - 10/11/2021 4:57 AM EDT Problem: Anxiety, Patient/Family Goal: Effective coping Outcome: Ongoing Problem: Adverse Surgical Event, Risk of Goal: Absence of injury Outcome: Ongoing Problem: Transition Readiness Goal: Knowledge of discharge instructions Outcome: Ongoing Goal: Able to safely transition to next level of care Outcome: Ongoing Problem: Falls, Risk of Goal: Absence of falls Outcome: Ongoing Goal: Absence of physical injury Outcome: Ongoing [facility]07-21-2022 Procedure note* Op Note - Rodger Reyes MD - 10/10/2021 10:04 AM EDT OPERATIVE REPORT NAME: Yoanna Cueto UNIT#: [id number] [facility]#: [id number] DATE OF : 2005 DATE: 10/10/2021 SURGEON: RODGER REYES M.D. PRINTED CIRCUIT BOARD PANELS DEBURRER: Franco PREOPERATIVE DIAGNOSES: Right upj obstruction Hypertenstion hydronephrosis POSTOPERATIVE DIAGNOSES: Same PROCEDURE(S): Right Laparoscopic Pyeloplasty Revision of renal pelvis ANESTHESIA: General PRE-OPERATIVE ANTIBIOTICS: Ancef ESTIMATED BLOOD LOSS: 10 mL. DRAINS: VIRY from RLQ port sight, 14 Djiboutian Mcmahan, 6 x 24 JJ stent SPECIMENS: none FINDINGS: crossing vessel COMPLICATIONS: None acutely. INDICATION: Yoanna Cueto was seen and found to have a right upj obstruction with hypertension. After a discussion of all the options, the patient's family wished to proceed with operative correction. The risks and benefits of surgery and anesthesia were discussed with the family in clinic and re-reviewed on the day of surgery, and they elected to proceed. DESCRIPTION OF PROCEDURE: After informed consent had been obtained and the risks and benefits of the procedure explained to the patient's family, the patient was taken back to the operating room and placed in a modified lateral position. The child was placed under general anesthesia and then prepped and draped in the usual sterile fashion. Timeout was undertaken identifying patient, procedure, site, and surgeon. The bladder was drained with a 14 Djiboutian Mcmahan which was ultimately left in the patient at the end the case. Following this a right-sided semilunar umbilical incision was made with a knife and electrocautery. The Veress needle was placed in the peritoneal cavity. Water drop test confirmed proper position. Pneumoperitoneum established at a pressure of 15 mmHg. Following this 2 additional ports were placed under direct vision in the right lower quadrant and approximately 1 handbreadth above the umbilicus in the midline. After the ports were successfully placed the colon was carefully reflected off of the abdominal wall by incising the white line of Toldt with the harmonic scalpel. After the colon was reflected the inferior pole of the kidney was identified. Further dissection medially identified a crossing vein and artery over an inflamed renal pelvis. The renal pelvis was carefully dissected away from the crossing vessels and surrounding tissue with the harmonic and in the laparoscop[place]ook with cautery. After the renal pelvis was carefully dissected away from the crossing vessels, the ureteropelvic junction was transected with a pair of laparoscopic scissors. The proximal ureter was spatulated for approximately 1-1/2 to 2 cm. The renal pelvis was then placed on the anterior surface of the vessels. It was noted to be quite thick and inflamed. Therefore the renal pelvis was revised by excising the redundant thickened renal pelvis until normal tissue was seen more proximally. After the renal pelvis was excised attention was turned towards the pyeloplasty. Using 6-0 Vicryl, the posterior wall of the spatulated ureter was anastomosed to the posterior wallof the renal pelvis in a tension-free manner. The ureter and its lumen were identified by placing a5 Djiboutian Pollick catheter in the ureter after removing the Mcmahan catheter. After the anastomosis ofthe posterior wall was complete, the Pollick catheter was exchanged for a 6 Djiboutian by 24 cm double-J ureteral stent which was placed over a 0.032 Glidewire. The proximal loop was then positioned intothe renal pelvis and the distal loop was noted to be in the bladder after cystoscope was placed into the bladder to confirm this. The cystoscope was removed and the 14 Djiboutian Mcmahan catheter was replaced with 10 cc in the balloon. The anterior wall of the ureteropelvic junction was now anastomosed with a additional 6-0 Vicryl in a tension-free manner. Renal pelvis was felt to be watertight dependent and funnel-shaped. The pneumoperitoneum was turned down to a pressure of 5 and hemostasis was determined to be adequate. A 10 Djiboutian round James-Nuñez drain was then brought through the right lower quadrant and placed over the pyeloplasty. The port was removed and the VIRY drain was sewn securelyat the skin with 4-0 nylon. The insufflation was released and the remaining ports were removed. Allof the midline ports were closed with 3-0 PDS in the fascia and subcuticular 5-0 Monocryl. Skin glue was also applied. It should also be noted that a fourth port was placed just below the xiphoid when the liver was interfering with dissection of the renal pelvis. The liver was gently retracted with a locking graspingforcep. The area was inspected prior to removing the port was free of any bleeding and the liver was free of any injury. The needle, instrument, and sponge counts were all determined to be correct prior leaving the operating room. DISPOSITION: The patient will be discharged home once stable from anesthesia and will follow up with me in 1 month for ultrasound prior to stent removal. Rodger Butler. Alejandro Reyes [facility]07-21-2022 Progress note* Ancillary Progress Note - Toma Awan CCLS - 10/10/2021 10:04 AM EDT Child Life Periop Note Patient Name: Yoanna Cueto Date of : 2005 Date of Visit: 10/10/2021 Visit: Time Spent (15 minute units): Less than 15 minutes Introduced self and services to: Patient;Mother;Father Surgery for: Urology Assessment: Developmental Level: Within appropriate developmental parameters Affect/Behavior: Amiable;Cooperative;Displaying/Expressing appropriate anxiety Listening/Attention: Appropriate for developmental age;Attentive;Interactive Caregiver/Family: Present;Supportive;Engaged Identified/Verbalized concerns: Anxiety appropriate to circumstance;Prefers intravenous induction;Recovery/Rehabilitation;Pain Interventions: Emotional Support: Encouraged expression of concerns and feelings;Reinforcement of understanding ofdiagnosis Provided developmentally appropriate psychosocial preparation to patient and family including:: Didactic encounter/information;Review/reinforce information due to familiarity with surgical experience Outcomes: Patient/Family demonstrates: Appropriate understanding of perioperative events;Increased coping andadjustment;Zuleyka by: Support from parent caregiver;Zuleyka by: Support from staff;Zuleyka by: Use of therapeutic intervention Plan: Psychosocial Plan: Continue to provide ongoing support and services as needed;Provide post-op follow up and support REBECCA Germain [facility]07-21-2022 Attending History and physical note* Rodger Reyes MD - 10/10/2021 9:33 AM EDT H&P reviewed, patient examined, no changes have occured since H&P completed. Source Note - Abida Aranda APRN-MANAGER WATER - 10/04/2021 11:20 AM EDT Patient ID: Yoanna Cueto is a 15 y.o. male. His chief complaint(s) include: Pre-op Exam (Kidney reconstruction) Assessment 1. Hydronephrosis with ureteropelvic junction (UPJ) obstruction 2. Pre-op exam Plan Yoanna was seen today for pre-op exam. Diagnoses and all orders for this visit: Hydronephrosis with ureteropelvic junction (UPJ) obstruction Pre-op exam Return for any symptoms of illness. Initial BP elevated but repeat manual BP after visit WNL. -Educated family that if patient develops viral illness, fever, requires unexpected breathing treatments or antibiotics or any other changes prior to surgery to notify the surgery center. -Educated family to stop all herbals/multivitamins/ibuprofen products at least 3 days prior to surgery. Subjective He is accompanied by his mother. Independent history obtained from mother. Pre-op Exam Yoanna is scheduled to have Pyeloplasty. The procedure date is 10/10/2021. The patient's symptoms have included no chills, no fatigue, no fever, no dizziness, no rash, no bilateral ear pain, no congestion, no rhinorrhea, no sneezing, no sore throat, no difficulty breathing, no shortness of breath, no headaches, no abdominal pain, no nausea, no vomiting, no dysuria, no diarrhea, no neck stiffness and no chest pain. The patient's past medical history includes prior anesthesia and kidney disease. The patient's pastmedical history includes no previous anesthesia reaction, no pulmonary disease, no diabetes, no cardiovascular disease, no history of blood transfusion reaction, no impaired immunity, no recent steriod use, no frequent aspirin/NSAID use, no clotting disorder, no bleeding problem and no past medical history reported. The patient's family history is positive for clotting disorder (Mom- mom unsure, thinks maybe factor V). The patient's family history is negative for no family medical history reported, sudden in family, anesthesia reaction and bleeding disorder. The patient has been exposed to no sick contacts. Primary Care Review of Systems Objective Vital Signs 10/04/21 1103 10/04/21 1106 10/04/21 1211 BP: 134/67 (!) 148/67 110/62 Pulse: 67 67 Weight: 51.4 kg Height: 172.7 cm Body mass index is 17.23 kg/m . Physical Exam Constitutional: He appears well. He is active. No distress. HENT: Head: Atraumatic. Ears: Right Ear: Tympanic membrane and external ear normal. Left Ear: Tympanic membrane and external ear normal. Nose: Nose normal. No nasal discharge. Mouth/Throat: Mucous membranes are moist. Dentition is normal. No pharynx erythema. Oropharynx is clear. Eyes: Conjunctivae are normal. Pupils are equal, round, and reactive to light. Neck: Neck supple. Thyroid normal. Cardiovascular: Normal rate, regular rhythm, S1 normal and S2 normal. Pulses are palpable. Heart murmur not heard. Pulmonary/Chest: Breath sounds normal. No respiratory distress. Exhibits no deformity. Abdominal: Soft. Bowel sounds are normal. He exhibits no distension and no mass. There is no hepatosplenomegaly. There is no abdominal tenderness. Genitourinary: Did not examine. Musculoskeletal: Cervical back: Normal range of motion and neck supple. Lumbar back: No scoliosis. General: Normal range of motion. Lymphadenopathy: No right anterior and posterior cervical adenopathy present. No left anterior and posterior cervical adenopathy present. Neurological: He is alert. He has normal strength. He exhibits normal muscle tone. Gait normal. Skin: Skin is warm. Skin is not pale. Findings: No rash. [facility]07-21-2022 History and physical note* Rodger Reyes MD - 10/10/2021 9:33 AM EDT H&P reviewed, patient examined, no changes have occured since H&P completed. Source Note - Abida Aranda APRN-CNP - 10/04/2021 11:20 AM EDT Patient ID: Yoanna Cueto is a 15 y.o. male. His chief complaint(s) include: Pre-op Exam (Kidney reconstruction) Assessment 1. Hydronephrosis with ureteropelvic junction (UPJ) obstruction 2. Pre-op exam Plan Yoanna was seen today for pre-op exam. Diagnoses and all orders for this visit: Hydronephrosis with ureteropelvic junction (UPJ) obstruction Pre-op exam Return for any symptoms of illness. Initial BP elevated but repeat manual BP after visit WNL. -Educated family that if patient develops viral illness, fever, requires unexpected breathing treatments or antibiotics or any other changes prior to surgery to notify the surgery center. -Educated family to stop all herbals/multivitamins/ibuprofen products at least 3 days prior to surgery. Subjective He is accompanied by his mother. Independent history obtained from mother. Pre-op Exam Yoanna is scheduled to have Pyeloplasty. The procedure date is 10/10/2021. The patient's symptoms have included no chills, no fatigue, no fever, no dizziness, no rash, no bilateral ear pain, no congestion, no rhinorrhea, no sneezing, no sore throat, no difficulty breathing, no shortness of breath, no headaches, no abdominal pain, no nausea, no vomiting, no dysuria, no diarrhea, no neck stiffness and no chest pain. The patient's past medical history includes prior anesthesia and kidney disease. The patient's pastmedical history includes no previous anesthesia reaction, no pulmonary disease, no diabetes, no cardiovascular disease, no history of blood transfusion reaction, no impaired immunity, no recent steriod use, no frequent aspirin/NSAID use, no clotting disorder, no bleeding problem and no past medical history reported. The patient's family history is positive for clotting disorder (Mom- mom unsure, thinks maybe factor V). The patient's family history is negative for no family medical history reported, sudden in family, anesthesia reaction and bleeding disorder. The patient has been exposed to no sick contacts. Primary Care Review of Systems Objective Vital Signs 10/04/21 1103 10/04/21 1106 10/04/21 1211 BP: 134/67 (!) 148/67 110/62 Pulse: 67 67 Weight: 51.4 kg Height: 172.7 cm Body mass index is 17.23 kg/m . Physical Exam Constitutional: He appears well. He is active. No distress. HENT: Head: Atraumatic. Ears: Right Ear: Tympanic membrane and external ear normal. Left Ear: Tympanic membrane and external ear normal. Nose: Nose normal. No nasal discharge. Mouth/Throat: Mucous membranes are moist. Dentition is normal. No pharynx erythema. Oropharynx is clear. Eyes: Conjunctivae are normal. Pupils are equal, round, and reactive to light. Neck: Neck supple. Thyroid normal. Cardiovascular: Normal rate, regular rhythm, S1 normal and S2 normal. Pulses are palpable. Heart murmur not heard. Pulmonary/Chest: Breath sounds normal. No respiratory distress. Exhibits no deformity. Abdominal: Soft. Bowel sounds are normal. He exhibits no distension and no mass. There is no hepatosplenomegaly. There is no abdominal tenderness. Genitourinary: Did not examine. Musculoskeletal: Cervical back: Normal range of motion and neck supple. Lumbar back: No scoliosis. General: Normal range of motion. Lymphadenopathy: No right anterior and posterior cervical adenopathy present. No left anterior and posterior cervical adenopathy present. Neurological: He is alert. He has normal strength. He exhibits normal muscle tone. Gait normal. Skin: Skin is warm. Skin is not pale. Findings: No rash. * Rodger Reyes MD - 10/10/2021 9:32 AM EDT H&P reviewed, patient examined, no changes have occured since H&P completed. Source Note - Abida Aranda APRN-CNP - 10/04/2021 11:20 AM EDT Patient ID: Yoanna Cueto is a 15 y.o. male. His chief complaint(s) include: Pre-op Exam (Kidney reconstruction) Assessment 1. Hydronephrosis with ureteropelvic junction (UPJ) obstruction 2. Pre-op exam Plan Yoanna was seen today for pre-op exam. Diagnoses and all orders for this visit: Hydronephrosis with ureteropelvic junction (UPJ) obstruction Pre-op exam Return for any symptoms of illness. Initial BP elevated but repeat manual BP after visit WNL. -Educated family that if patient develops viral illness, fever, requires unexpected breathing treatments or antibiotics or any other changes prior to surgery to notify the surgery center. -Educated family to stop all herbals/multivitamins/ibuprofen products at least 3 days prior to surgery. Subjective He is accompanied by his mother. Independent history obtained from mother. Pre-op Exam Yoanna is scheduled to have Pyeloplasty. The procedure date is 10/10/2021. The patient's symptoms have included no chills, no fatigue, no fever, no dizziness, no rash, no bilateral ear pain, no congestion, no rhinorrhea, no sneezing, no sore throat, no difficulty breathing, no shortness of breath, no headaches, no abdominal pain, no nausea, no vomiting, no dysuria, no diarrhea, no neck stiffness and no chest pain. The patient's past medical history includes prior anesthesia and kidney disease. The patient's pastmedical history includes no previous anesthesia reaction, no pulmonary disease, no diabetes, no cardiovascular disease, no history of blood transfusion reaction, no impaired immunity, no recent steriod use, no frequent aspirin/NSAID use, no clotting disorder, no bleeding problem and no past medical history reported. The patient's family history is positive for clotting disorder (Mom- mom unsure, thinks maybe factor V). The patient's family history is negative for no family medical history reported, sudden in family, anesthesia reaction and bleeding disorder. The patient has been exposed to no sick contacts. Primary Care Review of Systems Objective Vital Signs 10/04/21 1103 10/04/21 1106 10/04/21 1211 BP: 134/67 (!) 148/67 110/62 Pulse: 67 67 Weight: 51.4 kg Height: 172.7 cm Body mass index is 17.23 kg/m . Physical Exam Constitutional: He appears well. He is active. No distress. HENT: Head: Atraumatic. Ears: Right Ear: Tympanic membrane and external ear normal. Left Ear: Tympanic membrane and external ear normal. Nose: Nose normal. No nasal discharge. Mouth/Throat: Mucous membranes are moist. Dentition is normal. No pharynx erythema. Oropharynx is clear. Eyes: Conjunctivae are normal. Pupils are equal, round, and reactive to light. Neck: Neck supple. Thyroid normal. Cardiovascular: Normal rate, regular rhythm, S1 normal and S2 normal. Pulses are palpable. Heart murmur not heard. Pulmonary/Chest: Breath sounds normal. No respiratory distress. Exhibits no deformity. Abdominal: Soft. Bowel sounds are normal. He exhibits no distension and no mass. There is no hepatosplenomegaly. There is no abdominal tenderness. Genitourinary: Did not examine. Musculoskeletal: Cervical back: Normal range of motion and neck supple. Lumbar back: No scoliosis. General: Normal range of motion. Lymphadenopathy: No right anterior and posterior cervical adenopathy present. No left anterior and posterior cervical adenopathy present. Neurological: He is alert. He has normal strength. He exhibits normal muscle tone. Gait normal. Skin: Skin is warm. Skin is not pale. Findings: No rash. documented in this encounter[facility] Attending History and physical note* Rodger Reyes MD - 10/10/2021 9:32 AM EDT H&P reviewed, patient examined, no changes have occured since H&P completed. Source Note - Abida Aranda APRN-CNP - 10/04/2021 11:20 AM EDT Patient ID: Yoanna Cueto is a 15 y.o. male. His chief complaint(s) include: Pre-op Exam (Kidney reconstruction) Assessment 1. Hydronephrosis with ureteropelvic junction (UPJ) obstruction 2. Pre-op exam Plan Yoanna was seen today for pre-op exam. Diagnoses and all orders for this visit: Hydronephrosis with ureteropelvic junction (UPJ) obstruction Pre-op exam Return for any symptoms of illness. Initial BP elevated but repeat manual BP after visit WNL. -Educated family that if patient develops viral illness, fever, requires unexpected breathing treatments or antibiotics or any other changes prior to surgery to notify the surgery center. -Educated family to stop all herbals/multivitamins/ibuprofen products at least 3 days prior to surgery. Subjective He is accompanied by his mother. Independent history obtained from mother. Pre-op Exam Yoanna is scheduled to have Pyeloplasty. The procedure date is 10/10/2021. The patient's symptoms have included no chills, no fatigue, no fever, no dizziness, no rash, no bilateral ear pain, no congestion, no rhinorrhea, no sneezing, no sore throat, no difficulty breathing, no shortness of breath, no headaches, no abdominal pain, no nausea, no vomiting, no dysuria, no diarrhea, no neck stiffness and no chest pain. The patient's past medical history includes prior anesthesia and kidney disease. The patient's pastmedical history includes no previous anesthesia reaction, no pulmonary disease, no diabetes, no cardiovascular disease, no history of blood transfusion reaction, no impaired immunity, no recent steriod use, no frequent aspirin/NSAID use, no clotting disorder, no bleeding problem and no past medical history reported. The patient's family history is positive for clotting disorder (Mom- mom unsure, thinks maybe factor V). The patient's family history is negative for no family medical history reported, sudden in family, anesthesia reaction and bleeding disorder. The patient has been exposed to no sick contacts. Primary Care Review of Systems Objective Vital Signs 10/04/21 1103 10/04/21 1106 10/04/21 1211 BP: 134/67 (!) 148/67 110/62 Pulse: 67 67 Weight: 51.4 kg Height: 172.7 cm Body mass index is 17.23 kg/m . Physical Exam Constitutional: He appears well. He is active. No distress. HENT: Head: Atraumatic. Ears: Right Ear: Tympanic membrane and external ear normal. Left Ear: Tympanic membrane and external ear normal. Nose: Nose normal. No nasal discharge. Mouth/Throat: Mucous membranes are moist. Dentition is normal. No pharynx erythema. Oropharynx is clear. Eyes: Conjunctivae are normal. Pupils are equal, round, and reactive to light. Neck: Neck supple. Thyroid normal. Cardiovascular: Normal rate, regular rhythm, S1 normal and S2 normal. Pulses are palpable. Heart murmur not heard. Pulmonary/Chest: Breath sounds normal. No respiratory distress. Exhibits no deformity. Abdominal: Soft. Bowel sounds are normal. He exhibits no distension and no mass. There is no hepatosplenomegaly. There is no abdominal tenderness. Genitourinary: Did not examine. Musculoskeletal: Cervical back: Normal range of motion and neck supple. Lumbar back: No scoliosis. General: Normal range of motion. Lymphadenopathy: No right anterior and posterior cervical adenopathy present. No left anterior and posterior cervical adenopathy present. Neurological: He is alert. He has normal strength. He exhibits normal muscle tone. Gait normal. Skin: Skin is warm. Skin is not pale. Findings: No rash. [facility]05-03-2022 NoteIMPRESSION: 19 seconds of fluoroscopy time were provided for Dr. Reyes during this procedure. 8 static images were obtained and have limited detail on transfer to the PACS system. This dictation is for documentation of intraoperative guidance provided by technical technical support assistant. Please see operative note for further detail. This report has been created using voice recognition softwareTH[facility] Procedure note* Op Note - Rodger Reyes MD - 07/23/2021 9:38 AM EDT OPERATIVE REPORT NAME: Yoanna Cueto UNIT#: [id number] [facility]#: [id number] DATE OF : 2005 DATE: 07/23/2021 SURGEON: RODGER REYES M.D. PRINTED CIRCUIT BOARD PANELS DEBURRER: Jesi PREOPERATIVE DIAGNOSES: 1. Right hydronephrosis 2. Elevated blood pressure 3. Elevated serum creatinine POSTOPERATIVE DIAGNOSES: 1. Same PROCEDURE(S): 1. Cystoscopy 2. Right retrograde pyelogram under fluoroscopy 3. Right ureteral stent insertion ANESTHESIA: General PRE-OPERATIVE ANTIBIOTICS: Ancef ESTIMATED BLOOD LOSS: <5 mL. DRAINS: none SPECIMENS: urine culture FINDINGS: see beow COMPLICATIONS: None acutely. INDICATION: Yoanna Cueto was seen and found to have a right upj obstruction with normal split function on MAG-3. He and his family chose to observe but developed elevated bood pressure/creatinine. Wediscussed formal pyeoloplasty, but the fami elected to proceed with stent insertion first to see ifthis improves his blood pressure or creatinine before proceeding with formal repair.. The risks andbenefits of surgery and anesthesia were discussed with the family in clinic and re-reviewed on the day of surgery, and they elected to proceed. DESCRIPTION OF PROCEDURE: After informed consent had been obtained and the risks and benefits of the procedure explained to the patient's family, the patient was taken back to the operating room and placed in a lithotomy position. The child was placed under general anesthesia and then prepped and draped in the usual sterile fashion. Timeout was undertaken identifying patient, procedure, site, andsurgeon. A cystoscope was advanced into the bladder through the patient's urethra. The bladder was then drained and the urine was sent for culture. Using a 5 Djiboutian open-ended ureteral catheter and a C arm, aretrograde pyelogram was obtained on the right side which revealed significant hydronephrosis with a transition point at the UPJ. This is consistent with preoperative imaging. The Pollick was then advanced up to the level of the UPJ and the ureter was measured at approximately 26 cm. Therefore we attempted to place a 6 Djiboutian by 26 cm double-J ureteral stent but could not advance it beyond the distal ureter. Another retrograde was obtained in the distal ureter but no stricture of filling defect was identified. A second attempt was made but coud not be advanced beyond the distal ureter. Therefore, 4.8 Djiboutian x 24 cm stent was utilized. A 0.035 Glidewire was used to slide the stent up into the kidney with fluoroscopic assistance. A proximal loop was seen in the kidney as the Glidewire was gently removed. Ultimately a distal loop was seen in the bladder with the cystoscope. The bladder was then drained and the cystoscope was removed. The The needle, instrument, and sponge counts were all determined to be correct prior leaving the operating room. DISPOSITION: The patient will be discharged home once stable from anesthesia and will follow up with me next week for blood pressure check and BMP. Rodger Reyes M.D. [facility]05-03-2022 Progress note* Ancillary Progress Note - Latisha Fulton, [facility] - 07/23/2021 9:38 AM EDT Child Life Periop Note Patient Name: Yoanna Cueto Date of : 2005 Date of Visit: 07/23/2021 Visit: Time Spent (15 minute units): Less than 15 minutes Introduced self and services to: Patient;Mother;Father Surgery for: Urology Assessment: Developmental Level: Within appropriate developmental parameters Affect/Behavior: Amiable;Cooperative;Engaged;Displaying/Expressing appropriate anxiety Listening/Attention: Appropriate for developmental age;Attentive;Interactive Caregiver/Family: Present;Supportive;Engaged;Encouraging Identified/Verbalized concerns: Anxiety appropriate to circumstance;Prefers intravenous induction Interventions: Emotional Support: Reinforcement of understanding of diagnosis;Encouraged expression of concerns and feelings;Coping strategies discussed Provided developmentally appropriate psychosocial preparation to patient and family including:: Didactic encounter/information Outcomes: Patient/Family demonstrates: Appropriate understanding of perioperative events;Maintained developmental skills;Increased coping and adjustment;Zuleyka by: Support from parent caregiver;Zuleyka by: Support from staff;Zuleyka by: Use of therapeutic intervention Plan: Psychosocial Plan: Provide post-op follow up and support REBECCA Rajput [facility]05-03-2022 Miscellaneous Notes* Op Note - Rodger Reyes MD - 07/23/2021 9:38 AM EDT OPERATIVE REPORT NAME: Yoanna Cueto UNIT#: [id number] [facility]#: [id number] DATE OF : 2005 DATE: 07/23/2021 SURGEON: RODGER REYES M.D. [employer] PANELS DEBURRER: Sharda/Andrea PREOPERATIVE DIAGNOSES: 1. Right hydronephrosis 2. Elevated blood pressure 3. Elevated serum creatinine POSTOPERATIVE DIAGNOSES: 1. Same PROCEDURE(S): 1. Cystoscopy 2. Right retrograde pyelogram under fluoroscopy 3. Right ureteral stent insertion ANESTHESIA: General PRE-OPERATIVE ANTIBIOTICS: Ancef ESTIMATED BLOOD LOSS: <5 mL. DRAINS: none SPECIMENS: urine culture FINDINGS: see beow COMPLICATIONS: None acutely. INDICATION: Yoanna Cueto was seen and found to have a right upj obstruction with normal split function on MAG-3. He and his family chose to observe but developed elevated bood pressure/creatinine. Wediscussed formal pyeoloplasty, but the fami elected to proceed with stent insertion first to see ifthis improves his blood pressure or creatinine before proceeding with formal repair.. The risks andbenefits of surgery and anesthesia were discussed with the family in clinic and re-reviewed on the day of surgery, and they elected to proceed. DESCRIPTION OF PROCEDURE: After informed consent had been obtained and the risks and benefits of the procedure explained to the patient's family, the patient was taken back to the operating room and placed in a lithotomy position. The child was placed under general anesthesia and then prepped and draped in the usual sterile fashion. Timeout was undertaken identifying patient, procedure, site, andsurgeon. A cystoscope was advanced into the bladder through the patient's urethra. The bladder was then drained and the urine was sent for culture. Using a 5 Djiboutian open-ended ureteral catheter and a C arm, aretrograde pyelogram was obtained on the right side which revealed significant hydronephrosis with a transition point at the UPJ. This is consistent with preoperative imaging. The Pollick was then advanced up to the level of the UPJ and the ureter was measured at approximately 26 cm. Therefore we attempted to place a 6 Djiboutian by 26 cm double-J ureteral stent but could not advance it beyond the distal ureter. Another retrograde was obtained in the distal ureter but no stricture of filling defect was identified. A second attempt was made but coud not be advanced beyond the distal ureter. Therefore, 4.8 Djiboutian x 24 cm stent was utilized. A 0.035 Glidewire was used to slide the stent up into the kidney with fluoroscopic assistance. A proximal loop was seen in the kidney as the Glidewire was gently removed. Ultimately a distal loop was seen in the bladder with the cystoscope. The bladder was then drained and the cystoscope was removed. The The needle, instrument, and sponge counts were all determined to be correct prior leaving the operating room. DISPOSITION: The patient will be discharged home once stable from anesthesia and will follow up with me next week for blood pressure check and BMP. Rodger Reyes M.D. * Ancillary Progress Note - Latisha Fulton [facility] - 07/23/2021 9:38 AM EDT Child Life Periop Note Patient Name: Yoanna Cueto Date of : 2005 Date of Visit: 07/23/2021 Visit: Time Spent (15 minute units): Less than 15 minutes Introduced self and services to: Patient;Mother;Father Surgery for: Urology Assessment: Developmental Level: Within appropriate developmental parameters Affect/Behavior: Amiable;Cooperative;Engaged;Displaying/Expressing appropriate anxiety Listening/Attention: Appropriate for developmental age;Attentive;Interactive Caregiver/Family: Present;Supportive;Engaged;Encouraging Identified/Verbalized concerns: Anxiety appropriate to circumstance;Prefers intravenous induction Interventions: Emotional Support: Reinforcement of understanding of diagnosis;Encouraged expression of concerns and feelings;Coping strategies discussed Provided developmentally appropriate psychosocial preparation to patient and family including:: Didactic encounter/information Outcomes: Patient/Family demonstrates: Appropriate understanding of perioperative events;Maintained developmental skills;Increased coping and adjustment;Zuleyka by: Support from parent caregiver;Zuleyka by: Support from staff;Zuleyka by: Use of therapeutic intervention Plan: Psychosocial Plan: Provide post-op follow up and support REBECCA Rajput * Plan of Care - Beulah Rodríguez RN - 07/23/2021 9:26 AM EDT Problem: Falls, Risk of Goal: Absence of falls Outcome: Ongoing [facility] Plan of care note* Plan of Care - Beulah Rodríguez RN - 07/23/2021 9:26 AM EDT Problem: Falls, Risk of Goal: Absence of falls Outcome: Ongoing [facility]05-03-2022 History and physical note* Wayne Robin MD - 07/23/2021 8:31 AM EDT Interval H&P No changes in health per patient. No fevers, cough, vomiting, rash. Regular rate and rhythm. Lungs clear to auscultation bilaterally. Right flank marked. OR with Dr. Amy Robin, PGY-4 9:08 AM 07/23/2021 [facility]05-03-2022 History and physical note* Wayne Robin MD - 07/23/2021 8:31 AM EDT Interval H&P No changes in health per patient. No fevers, cough, vomiting, rash. Regular rate and rhythm. Lungs clear to auscultation bilaterally. Right flank marked. OR with Dr. Amy Robin, PGY-4 9:08 AM 07/23/2021 [facility] Caroline Cueto is a 15 y.o. 6 m.o. male who presents in consultation from Dr Montague for evaluation of UPJ obstruction and elevated BP. Per Yoanna he was having Rt sided lower back pain which worsened and he presented to ED in Jan 2021. He states the pain is positional and usually goes away, but today it did not. Seen in ED with CT showing possible Rt UPJ obstruction. Seen by Dr Reyes and Mag 3 did not show significant obstruction. Family is considering whether to move forward with pyeloplasty. End of May c/o frequent DORADO, seen by PCP with elevated SBP 150-160s. Per parents they have been checking at home and getting mostly 140s with some 120s and 150s. Today he denies DORADO, he thinks those were from how his neck was bending when asleep, since he started to put an extra pillow he is not having DORADO as much. He has not had flank pain for a while, and it has never been as bad or prolonged as it was 01/2021. He is very anxious in the doctors office and is nervous about being seen. Dad was dx with HTN in his late 40s and mom has DM. Paternal grandmother also has HTN. ROS: Per HPI No past medical history on file. Past Surgical History: Procedure Laterality Date TONSILLECTOMY No history on file. Family History Problem Relation Age of Onset Diabetes Mother High Cholesterol Mother IA Before 50 Paternal Grandfather No known problems Father Allergies Brother seasonal allergies No known problems Brother Social History Socioeconomic History Marital status: Single Spouse name: Not on file Number of children: Not on file Years of education: Not on file Highest education level: Not on file Occupational History Not on file Tobacco Use Smoking status: Never Smoker Smokeless tobacco: Never Used Substance and Sexual Activity Alcohol use: Not on file Drug use: Not on file Sexual activity: Not on file Other Topics Concern Not on file Social History Narrative Not on file Current Outpatient Medications: acetaminophen (TYLENOL) 250 MG TABS, Take by mouth, Disp: , Rfl: ibuprofen (MOTRIN) 200 MG tablet, Take by mouth Take with meals., Disp: , Rfl: There were no vitals filed for this visit. Physical Exam Constitutional: Well appearing and well-nourished. Jittery. Thin. Head: Normocephalic. Mouth/Throat: No oropharyngeal exudate. MMM. Eyes: Pupils are equal, round, and reactive to light. No scleral icterus. Ears: No external swelling or pits. Cardiovascular: Normal rate and rhythm. Normal heart sounds. No murmur. Pulmonary/Chest: Effort normal and breath sounds normal. No respiratory distress. Abdominal: Soft. No distension. Non-tender to palpation. Musculoskeletal: Extremities are warm and well perfused. No edema or tenderness. Skin: No rash or lesion noted. Labs/Imaging: I have independently reviewed any labs and imaging Chemistry: Chemistry Component Value Date/Time NA 135 02/02/20212121 K 3.9 02/02/20212121 CL 98 02/02/20212121 CO2 22.3 02/02/20212121 BUN 14 02/02/20212121 CREATININE 0.68 (L) 02/02/20212121 GLU 112 (H) 02/02/20212121 Component Value Date/Time CALCIUM 9.0 02/02/20212121 POCT Urinalysis: Lab Results Component Value Date POCTLEUKOUR Negative 07/04/2021 POCTNITR Negative 07/04/2021 POCTPH 6.5 07/04/2021 POCTSPEGR 1.030 07/04/2021 POCTKETONEUR Negative 07/04/2021 POCTGLUUR Negative 07/04/2021 POCCOLORUR Yellow 07/04/2021 POCCHARACUR Clear 07/04/2021 CT: Kidneys: Left kidney and ureter are unremarkable. Moderate right hydronephrosis with moderate to marked dilatation of the right renal pelvis. The right ureter is not dilated. No visible stones in the right kidney or ureter. Delayed enhancement of the right kidney when compared to the left. Trace right perinephric fluid. There are two right renal veins. The inferior right renal vein appears to course across the ureteropelvic junction (series 601 images 34 through 43; series 2 images 45 through 52). Mag 3: KIDNEY STRUCTURE: Both kidneys were promptly visualized and orthotopic. There is mild dilation of right central renal pelvis renal calyces, but not the calyces. SPLIT FUNCTION: Left kidney: 50% total renal function Right kidney: 50% total renal function COLLECTING SYSTEMS: There is prompt clearance of tracer activity from the left kidney. T1/2 clearance of the left kidney is 21 minutes prior to Lasix administration and 3.6 minutes after. There is prompt clearance of tracer activity from the right kidney. T1 half clearance of the right kidney is 10 minutes prior to Lasix ministration and 3.6 minutes after. IMPRESSION: Mild right pelviectasis without obstruction. Assessment: Yoanna Cueto is a 15 y.o. 6 m.o. male who presents in consultation from Dr Montague for evaluation of UPJ obstruction and elevated BP. Plan: -01/2021 eGFR 104 ml/min/1.73m2 which is normal -today's cr is increased from 0.68 to 0.94, this calcula (more content not included)...[facility]* Diagnosis Hypertension, unspecified type UPJ (ureteropelvic junction) obstruction Other ureteric obstruction documented in this encounter [facility] noteNo assessment information available [facility] Work Phone: Evaluation note* Diagnosis Other hydronephrosis- Primary Obstruction of kidney Other specified disorder of kidney and ureter Other hydronephrosis documented in this encounter [facility] note* Diagnosis Other hydronephrosis- Primary documented in this encounter [facility] note* Diagnosis Elevated blood pressure reading without diagnosis of hypertension Other hydronephrosis- Primary Hydronephrosis with ureteropelvic junction (UPJ) obstruction documented in this encounter [facility] note* Diagnosis Hydronephrosis with ureteropelvic junction (UPJ) obstruction- Primary Obstruction of right ureteropelvic junction (UPJ) documented in this encounter [facility] note* Diagnosis Other hydronephrosis- Primary Hydronephrosis with ureteropelvic junction (UPJ) obstruction documented in this encounter [facility] note* Diagnosis Influenza-like illness- Primary Influenza with other respiratory manifestations documented in this encounter [facility] note* Diagnosis Bronchitis- Primary Bronchitis, not specified as acute or chronic documented in this encounter [facility] note* Diagnosis Sore throat- Primary Acute pharyngitis Acute otitis media, right Unspecified otitis media documented in this encounter [facility] note* Diagnosis Bronchitis Bronchitis, not specified as acute or chronic documented in this encounter [facility] Discharge instructions Additional Instructions Please continue antibiotic as directed but add the steroid in order to reduce inflammation. If you have any trouble breathing or swallowing or have any further concerns please return [facility] the 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 Advance Directive Response Recorded Date/ Time Advance Directives No February 24, 2017 4:35pm Living Will No February 24 4:35pm Power of Certified Driver Examiner No February 24, 2017 4:35pm Documents on File Type Date Recorded 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 Driver Examiner Advance Directive Response Recorded Date/ Time Advance Directives No February 24, 2017 4:35pm Living Will No June 12, 2022 12:30pm Power of Certified Driver Examiner No June 12 12:30pm Advance Directive Response Recorded Date/ Time Advance Directives No February 24, 2017 4:35pm Living Will No October 04, 2022 12:39am Power of Certified Driver Examiner No October 04 12:39am Chief Complaint and Reason for Visit Chief Complaint headache Chief Complaint GENERAL ILLNESS Chief Complaint GENERAL ILLNESS sore throat Summary Purpose Family History No Family History Records FoundNo Family History Records FoundNo Family History Records Found Additional Source Comments Care Teams (unrecognized sec tion and content) [employer] Sales Executive Relationship Specialty Start Date End Date Katelyn Montague MD PCP - General Pediatrics 01/04/13 [employer] Sales Executive Relationship Specialty Start Date End Date Katelyn Montague MD PCP - General Pediatrics 01/04/13 [employer] Sales Executive Relationship Specialty Start Date End Date Katelyn Montague MD PCP - General Pediatrics 01/04/13 [employer] Sales Executive Relationship Specialty Start Date End Date Katelyn Montague MD PCP - General Pediatrics 01/04/13 [employer] Sales Executive Relationship Specialty Start Date End Date Katelyn Montague MD PCP - General Pediatrics 01/04/13 [employer] Sales Executive Relationship Specialty Start Date End Date Katelyn Montague MD PCP - General Pediatrics 01/04/13 [employer] Sales Executive Relationship Specialty Start Date [place] [address] PCP - General Pediatrics 07/06/15 [employer] Sales Executive Relationship Specialty Start Date End Date Katelyn Montague [address] [place], [place] [address] PCP - General Pediatrics 07/06/15 Team Status: Active Member Role Status Dates Dr. Katelyn Montague MD Family Provider Active Dr. Katelyn Montague MD Primary Care Provider Active Team Status: Inactive Member Role Status Dates Dr. Katelyn Montague MD Primary Care Provider Active Dr. Jasper Gupta DO Emergency Provider Active [employer] Sales Executive Relationship Specialty Start Date End Date Katelyn Montague [address] [place] [address] PCP - General Pediatrics 07/06/15 Team Status: Inactive Member Role Status Dates Dr. Katelyn Montague MD Primary Care Provider Active Dr. Jasper Gupta DO Attending Provider, Emergency Provider Active Team Status: Inactive Member Role Status Dates Dr. Katelyn Montague MD Primary Care Provider Active Dr. Fredrick Banegas DO Emergency Provider Active [employer] Sales Executive Relationship Specialty Start Date End Date Katelyn Montague MD [address] [facility] [place] [address] PCP - General Pediatrics 07/06/15 Goals (unrecognized section and content) Goals may be documented in a n alternate sectionGoals may be documented in an alternate sectionGoals may be documented in an alternate section Scheduled Active and Recently Administ ered Medications (unrecognized section and content) Medication Order 07/21/2021 07/22/2021 07/23/2021 iopamidol (ISOVUE-300) 61 % injection 20 mL (COMPLETED) 20 mL (0.388 ml/kg/DOSE), Other, ONCE, 1 dose, On Thu07/23/21 at 1030, Radiology 1016 (Given - Provid er: Edie Reed, RT(R))1030 (Due) Continuous Medication Order 07/21/2021 07/22/2021 07/23/2021 Lactated Ringers IV (CANCELED) CONTINUOUS, Intravenous, at 80 mL/hr, Starting on Thu07/23/21 at 1030, For 90 days, PACU 1017 (Restarted from Bag - Provider: Lora Valle, ANNA)1111 (Stopped - Provider: Liya Ponce RN) PRN Medication Order 07/21/2021 07/22/2021 07/23/2021 lidocaine jelly (XYLOCAINE JELLY) 2 % (CANCELED) PRN, Starting on Thu07/23/21 at 1008, Until Thu07/23/21 at 1014, Intra-op 1008 (Given - Provid er: Wayne Robin MD) Scheduled Medication Order 10/09/2021 10/10/2021 10/11/2021 acetaminophen (TYLENOL) 325 MG tablet 650 mg 650 mg (50.9 mg/kg/DAY), Oral, EVERY 6 HOURS, 360 doses, First dose on Thu10/10/21 at 1430, Last dose on Thu01/08/22 at 0600 1430 (Due)1746 (Given - Provider: Asya Mccullough RN)2339 (Given - Provider: Reina Sofia RN) 0836 (Given - Provider: John Rubio, ANNA)1425 (Given - Provider: John Rubio RN) ceFAZolin (ANCEF) 1,000 mg in sterile water 10 mL IV (COMPLETED) 1,000 mg (19.6 mg/kg/DOSE), Intravenous, EVERY 8 HOURS, 2 doses, First dose on Thu10/10/21 at 1800, Last dose on Thu10/11/21 at 0100, Administer over 3 Minutes 1818 (Given - Provider: Asya Mccullough RN) 0054 (Given - Provider: Reina Sofia RN) morphine 2 MG/ML injection 2 mg (COMPLETED) 2 mg (0.0391 mg/kg/DOSE), Intravenous, ONCE, 1 dose, On Thu10/10/21 at 1530 1523 (Given - Provider: Asya Mccullough RN) NaCl 0.9% PosiFlush 2 mL 2 mL EVERY 8 HOURS (0.117 mL/kg/DAY), Intravenous, at 0-999 mL/hr, First dose on Thu10/10/21 at 1530, For 90 days 1534 (Not Given - Provider: Asya Mccullough RN - Reason: Running IV fluids) 0305 (Not Given - Provider: Reina Sofia RN - Reason: Running IV fluids)1040 (Push - Provider: John Rubio RN) Continuous Medication Order 10/09/2021 10/10/2021 10/11/2021 Dextrose 5% Lactated Ringers IV CONTINUOUS, Intravenous, at 90 mL/hr, Starting on Char 10/10/21 at 1430, For 90 days 1421 (New Bag - Provider: Daya Peres RN)1421 (Paused - Provider: Asya Mccullough RN)1422 (Paused - Provider: Asya Mccullough RN)1422 (Paused - Provider: Asya Mccullough RN)1422 (Paused - Provider: Asya Mccullough RN)1422 (Restarted - Provider: Asya Mccullough RN)1523 (Dose/Rate Verification - Provider: Asya Mccullough RN)1549 (Dose/Rate Verification - Provider: Asya Mccullough RN)1808 (Dose/Rate Verification - Provider: Asya Mccullough RN)2002 (Paused - Provider: Reina Sofia RN)2006 (Restarted - Provider: Reina Sofia RN)2100 (Dose/Rate Verification - Provider: Reina Sofia RN)2200 (Dose/Rate Verification - Provider: Reina Sofia RN)2300 (Dose/Rate Verification - Provider: Reina Sofia RN) 0000 (Dose/Rate Verification - Provider: Reina Sofia RN)0128 (Rate/Dose Change - Provider: Reina Sofia RN)0138 (New Bag - Provider: Yudith Hunter RN)0300 (Dose/Rate Verification - Provider: Reina Sofia RN)0400 (Dose/Rate Verification - Provider: Reina Sofia RN)0500 (Dose/Rate Verification - Provider: Reina Sofia RN)0600 (Dose/Rate Verification - Provider: Reina Sofia RN)0756 (Dose/Rate Verification - Provider: Asya Mccullough, ANNA)1040 (Stopped - Provider: John Rubio RN) PRN Medication Order 10/09/2021 10/10/2021 10/11/2021 morphine 2 MG/ML injection 2 mg (CANCELED) 2 mg (0.0391 mg/kg/DOSE), Intravenous, EVERY 4 HOURS PRN, Starting on Thu10/10/21 at 1834, Until Thu10/11/21 at 1003, Other, Breakthrough pain 1851 (Given - Provider: Asya Mccullough, ANNA) NaCl 0.9 % 10 mL 10 mL PRN (0.196 ml/kg/DOSE), Intravenous, at 0-999 mL/hr, Line Care, For mixture of medications, Starting on Thu10/10/21 at 1515, For 90 days, For mixture of medications NaCl 0.9 % IV Flush bag 30 mL 30 mL PRN (0.587 ml/kg/DOSE), Intravenous, at 0-999 mL/hr, Flush IV line after medication IVPB bag if given., Starting on Thu10/10/21 at 1515, For 90 days, Flush IV line after medication IVPB bag if given. NaCl 0.9% PosiFlush 2 mL 2 mL PRN (0.0391 ml/kg/DOSE), Intravenous, at 0-999 mL/hr, Line Care, Starting on Thu10/10/21 at 1515, For 90 days NaCl 0.9% PosiFlush 5 mL 5 mL PRN (0.0978 ml/kg/DOSE), Intravenous, at 0-999 mL/hr, Line Care, Starting on Thu10/10/21 at 1515, For 90 days ondansetron (ZOFRAN) injection 4 mg 4 mg (0.0783 mg/kg/DOSE), Intravenous, EVERY 8 HOURS PRN, Starting on Thu10/10/21 at 1514, Until Thu10/11/21 at 1917, First Line Nausea oxyCODONE (immediate release) (ROXICODONE) tablet 5 mg 5 mg (0.0978 mg/kg/DOSE), Oral, EVERY 4 HOURS PRN, Starting on Char 10/10/21 at 1406, Until Thu10/11/21 at 1917, Moderate Pain = Pain Score 4-6, Severe Pain = Pain Score 7-10 2339 (Given - Provider: Reina Sofia, RN) 1235 (Given - Provider: John Rubio, ANNA) promethazine (PHENERGAN) injection 12.5 mg 12.5 mg (0.245 mg/kg/DOSE), Intravenous, EVERY 6 HOURS PRN, Starting on Char 10/10/21 at 1834, Until Thu10/11/21 at 1917, Administer over 10 Minutes, Second Line Nausea, Administer into large-bore vein (preferably central). Further dilute with NS to final total volume of 10ml. Infuse as slow IV push over 10 minutes DO NOT USE in kids <2 years old. 185 (Given - Provider: Asya Mccullough RN) ropivacaine (NAROPIN) 0.5% injection (CANCELED) PRN, Starting on Thu10/10/21 at 1339, Until Thu10/10/21 at 1404, Intra-op 1339 (Given - Provider: Rodger Reyes MD) sterile water injection 10 mL 10 mL (0.196 ml/kg/DOSE), Intravenous, PRN, Starting on Thu10/10/21 at 1515, Until Thu10/11/21 at 1917, For mixture of medications, For mixture of medications Continuous Medication Order 11/18/2021 11/19/2021 11/20/2021 Lactated Ringers IV (CANCELED) CONTINUOUS, Intravenous, at 90 mL/hr, Starting on Thu11/20/21 at 1330, For 90 days, PACU 1337 (Restarted from Bag - Provider: Scarlet Monroy, ANNA)1418 (Stopped - Provider: Scarlet Monroy RN) PRN Medication Order 11/18/2021 11/19/2021 11/20/2021 lidocaine jelly (XYLOCAINE JELLY) 2 % (CANCELED) PRN, Starting on Thu11/20/21 at 1323, Until Thu11/20/21 at 1332, Intra-op 1323 (Given - Provid er: Rodger Reyes MD) Oxygen (CANCELED) See Flowsheet Row, PRN, Starting on Thu11/20/21 at 1327, Until Thu11/20/21 at 1429, Keep sats greater or equal to 95% 1332 (Gas Start - Pr ovider: Scarlet Monroy, ANNA)1355 (Gas Stop - Provider: Scarlet Monroy, ANNA) Reason for Visit (unrecogniz ed section and content) Specialty Diagnoses / Procedures Referred By Zeke hou Referred To Contact Diagnoses Hydronephrosis with ureteropelvic junction (UPJ) obstruction Hydronephrosis with ureteropelvic junction (UPJ) obstruction [Q62.11] Procedures CA LAP,PYELOPLASTY CA REVISION RENAL PELVIS,SIMPLE CA REVISION RENAL PELVIS,COMPLICATED CA ANASTOMOSE URETER/RENAL PELVIS CA ANASTOMOSE URETER/RENAL CALYX CA URETEROTOMY TO INSERT STENT LAPAROSCOPIC [place] [address] [place] [address] Referral ID Status Reason Start Date Expiration Date Visits Re quested Visits Authorized [id number] 1 1 Specialty Diagnoses / Procedures Referred By Zeke hou Referred To Contact Diagnoses Other hydronephrosis Other hydronephrosis [N13.39] Procedures CA CYSTOSCOPY,REMV CALCULUS,SIMPLE CA CYSTOSCOPY,REMV CALCULUS,COMPLIC CYSTOSCOPY [place] [address] [place] [address] Referral ID Status Reason Start Date Expiration Date Visits Re quested Visits Authorized [id number] 1 1 Reason Comments Cough Cough, congestion, H A and runny nose x 2 days Reason Comments Cough Cough and congestion x 3 weeks Reason Comments Sore Throat ST and right ear lore n x 2 days Source Comments (unrecognize d section and content) In the event this informatio n is protected by the Federal Confidentiality of Alcohol and Drug Abuse Patient Records regulations: The Federal rules restrict any use of the information to criminally investigate or prosecute any alcohol or drug abuse patient.[facility] the event this information is protected by the Federal Confidentiality of Alcohol and Drug Abuse Patient Records regulations: The Federal rules restrict any use of the information to criminally investigate or prosecute any alcohol or drug abuse patient.[facility] the event this information is protected by the Federal Confidentiality of Alcohol and Drug Abuse Patient Records regulations: The Federal rules restrict any use of the information to criminally investigate or prosecute any alcohol or drug abuse patient.[facility] the event this information is protected by the Federal Confidentiality of Alcohol and Drug Abuse Patient Records regulations: The Federal rules restrict any use of the information to criminally investigate or prosecute any alcohol or drug abuse patient.[facility] (unrecognized sect ion and content) No Status Records FoundNo Status Records FoundNo Status Records Found INFORMATION SOURCE (unrecogn ized section and content) DATE CREATED AUTHOR 06/28/2022 [facility] DATE CREATED AUTHOR AUTHOR'S ISIAH ATION 03/15/2023 [facility] DATE CREATED AUTHOR AUTHOR'S ORGANKELLY ATION 01/08/2024 [facility] FOR RECORDS PERTAINING TO PATIENTS WHO ARE OR HAVE BEEN ENROLLED IN A CHEMICAL DEPENDENCY/SUBSTANCEABUSE PROGRAM, SOME INFORMATION MAY BE OMITTED. This clinical summary was aggregated from multiple sources. Caution should be exercised in using it in the provision of clinical care. This summary normalizes information from multiple sources, and as a consequence, information in this document may materially change the coding, format and clinical context of patient data. In addition, data may be omitted in some cases. CLINICAL DECISIONS SHOULD BE BASED ON THE PRIMARY CLINICAL RECORDS. [employer] provides no warranty or guarantee of the accuracy or completeness of information in this document.
== END 2025-01-06 21:10 | disposition left against medical advice (07) ==
LOC: ED 21:22
DX: R42 Dizziness and giddiness (principal); Z53.21 Procedure and treatment not carried out due to patient leaving prior to being seen by health care provider